=== PATIENT | female | born 1985 | race Two or more races ===

== ENCOUNTER 2020-03-27 14:27 | Emergency (ER) | payer MEDICAID, SELFPAY ==
--- NOTE | 2020-03-27 14:35 | ED.NAVMDI ---
HPI - Nausea/Vomiting/Diarrhea General Chief complaint: Abdominal Pain Stated complaint: NAUSEA AND VOMITING Time Seen by Provider: 03/27/20 14:35 Source: patient and EMS Mode of arrival: EMS Limitations: no limitations History of Present Illness MD elicited complaint: nausea and vomiting Pertinent past history: other (hx of vomiting in the past) Onset (ago): day(s) (last night) Description of vomiting: food contents Associated nausea: Yes Associated abdominal pain: No Location of pain: none Pain consistency: constant Severity: moderate Exacerbating factors: none Relieving factors: none Context: possible food poisoning Associated symptoms: denies other symptoms Related Data Allergies Allergy/AdvReac Type Severity Reaction Status Date / Time Sulfa (Sulfonamide Allergy Unknown SHORTNESS Verified 03/27/20 15:11 Antibiotics) OF BREATH [SULFA (SULFONAMIDE ANTIBIOTICS)] Review of Systems Review of Systems: Constitutional : No Weight loss, No Fever, No Chills ENT/Mouth : No sore throat, No Rhinorrhea Eyes: No Swelling, No Redness Cardiovascular : No Chest Pain, No SOB, NoEdema Respiratory : No Cough, No Sputum, No Wheezing Gastrointestinal : Positive Nausea, Positive Vomiting, no Diarrhea, no abdominal Pain, No Hematochezia, No Melena Genitourinary : No Dysuria, No Urinary Frequency, No Hematuria, No Urgency Musculoskeletal : No joint pain, No Myalgias, No Joint Swelling Skin : No Skin Lesions, No rash Neuro : No Weakness, No Numbness, No Dizziness, No Headache Psych : No Anxiety/Panic, No Depression Heme/Lymph: No Bruising, No Lymphadenopathy Endocrine : No Polyuria, No Polydipsia All other systems reviewed and are negative. Gastrointestinal: Gastrointestinal: Reports nausea PMFSH Past Medical History Attestation statement: The following information was validated with the patient. Medical History (Updated 03/27/20 @ 16:27 by Rula Gasca DO) delivery delivered Hernia Vomiting Social History Social History (Updated 03/27/20 @ 14:41 by Rula Gasca DO) Alcohol intake: current Alcohol intake frequency: holidays/special occasions only Smoking Status: Never smoker Use of substances other than those prescribed or required for medical reasons: No Advance Directives: No Advance Directives Information Provided: No Physical Exam Vital Signs and I&O and Narrative: Vital Signs and I&O: Vital Signs Temp 98.6 F 03/27/20 14:37 Pulse 92 03/27/20 14:37 Resp 16 03/27/20 14:37 BP 136/91 H 03/27/20 14:37 Pulse Ox 99 03/27/20 14:37 Intake & Output 03/26/20 03/27/20 03/27/20 18:59 06:59 18:59 Weight 81.193 kg Body Mass Index 28.0 Appearance: Alert. Oriented X3. No acute distress. Eyes: Pupils equal, round and reactive to light. ENT: Pharynx normal. Neck: Normal inspection. Neck supple. CVS: Normal heart rate and rhythm. Pulses normal. Respiratory: No respiratory distress. Breath sounds normal. Abdomen: Soft and nontender. Skin: Skin warm and dry. Normal skin color. Normal skin turgor. Extremities: No lower extremity edema. No lower extremity edema. Neuro: Oriented X 3. No motor deficit. No sensory deficit. Course Course Course Narrative: signed out to Dr. Perera pending PO challenge and urine MDM - Nausea/Vomiting/Diarrhea MDM Narrative Medical decision making narrative: patient reports c/o n/v 6 times since last night denies concern for , states she took phenergan without relief, still feels nauseated at this time, basic labs, UA, IVF and IV zofran Lab Data Result diagrams: 03/27/20 15:03 03/27/20 15:03 Labs: Lab Results 03/27/20 03/27/20 03/27/20 Range/Units 15:03 15:03 15:03 WBC 5.3 (4.8-10.8) X10*3/uL RBC 3.79 L (4.20-5.50) X10*6/uL Hgb 11.5 L (12.0-16.0) g/dl Hct 36.6 L (37-47) % MCV 96.6 (80-98) fL MCH 30.3 (27.0-33.0) pg MCHC 31.4 (31.0-35.0) g/dl RDW 13.8 (11.0-16.0) % Plt Count 229 (160-400) X10*3/uL MPV 11.4 (9.4-12.3) fL Immature Gran % (Auto) 0.2 (0.0-0.4) % Neut % (Auto) 69.2 (45-73) % Lymph % (Auto) 22.2 (20-40) % [place] % (Auto) 7.0 (2-11) % Eos % (Auto) 0.8 (0-4) % Baso % (Auto) 0.6 (0-2) % Neut # (Auto) 3.7 (2.0-8.3) X10*3/uL Lymph # (Auto) 1.2 (1.2-4.9) X10*3/uL [place] # (Auto) 0.4 (0.1-1.2) X10*3/uL Eos # (Auto) 0.0 (0.0-0.4) X10*3/uL Baso # (Auto) 0.0 (0.0-0.2) X10*3/uL Abs Immat Gran (auto) 0.01 (0.00-0.03) X10*3/uL Absolute Nucleated RBC 0.000 (0.0-0.012) X10*3/uL Nucleated RBC % (auto) 0.0 (0.0-0.2) /100WBC Hold Blue Top SEE NOTE Sodium 141 (135-145) mmol/L Potassium 4.4 (3.3-5.1) mmol/l Chloride 105 (96-108) mmol/L Carbon Dioxide 27 (22-29) mmol/L Anion Gap 13 (12-20) BUN 12 (9-16) mg/dL Creatinine 0.63 (0.5-1.4) mg/dL Estim Creat Clear Calc 136.6 Estimated GFR > 60 Random Glucose 102 (60-115) mg/dL Calcium 8.5 (8.4-10.2) mg/dL Magnesium 2.1 (1.6-2.6) mg/dL Total Bilirubin 0.6 (0.0-1.0) mg/dL Direct Bilirubin 0.3 (0.0-0.5) mg/dL AST 18 (5-31) U/L ALT 15 (0-31) U/L Alkaline Phosphatase 59 (39-117) U/L Total Protein 7.2 (6.5-8.0) g/dL Albumin 4.0 (3.5-5.0) g/dL Lipase 23 (8-78) U/L Discharge Plan Discharge Clinical Impression: Vomiting Qualifiers: Vomiting type: unspecified Vomiting Intractability: unspecified Nausea presence: with nausea Qualified Code(s): R11.2 - Nausea with vomiting, unspecified
[2020-03-27 14:37] VITALS: BP 136/91; PULSE 92; RESP 16; TEMP 37; O2SAT 99; BMI 28.0
[2020-03-27 15:08] LABS: MANUAL DIFF FLAG NO
[2020-03-27 15:09] LABS: Basophils Percent Auto 0.6 % (0-2); Eosinophils Percent Auto 0.8 % (0-4); Hematocrit 36.6 % (37-47); Hemoglobin 11.5 g/dl (12.0-16.0); Imm Gran Abs Auto 0.01 X10*3/uL (0.00-0.03); Imm Gran Pct Auto 0.2 % (0.0-0.4); Lymphocytes Absolute Auto 1.2 X10*3/uL (1.2-4.9); Lymphocytes Percent Auto 22.2 % (20-40); Mean Corpuscular HGB Conc 31.4 g/dl (31.0-35.0); Mean Corpuscular Hemoglobin 30.3 pg (27.0-33.0); Mean Corpuscular Volume 96.6 fL (80-98); Mean Platelet Volume 11.4 fL (9.4-12.3); Monocytes Absolute Auto 0.4 X10*3/uL (0.1-1.2); Neutrophils Absolute Auto 3.7 X10*3/uL (2.0-8.3); Neutrophils Percent Auto 69.2 % (45-73); Platelet Count 229 X10*3/uL (160-400); Red Blood Count 3.79 X10*6/uL (4.20-5.50); Red Cell Distribution Width 13.8 % (11.0-16.0); White Blood Count 5.3 X10*3/uL (4.8-10.8)
[2020-03-27] MEDS: 0.9 % Sodium Chloride 1,000 ML 999 ML IVCONT (15:12)
[2020-03-27] MEDS: ondansetron HCL 4 MG/2 ML VIAL IVPUSH (15:21)
[2020-03-27 15:44] LABS: Alanine Aminotransferase 15 U/L (0-31); Alkaline Phosphatase 59 U/L (39-117); Anion Gap 13 (12-20); Aspartate Amino Transferase 18 U/L (5-31); Bilirubin Direct 0.3 mg/dL (0.0-0.5); Bilirubin Total 0.6 mg/dL (0.0-1.0); Blood Urea Nitrogen 12 mg/dL (9-16); Calcium 8.5 mg/dL (8.4-10.2); Carbon Dioxide 27 mmol/L (22-29); Chloride 105 mmol/L (96-108); Creatinine Clr Calc Pharmacy 136.6; Estimated Glomerular Filt Rate > 60; Glucose Random 102 mg/dL (60-115); Lipase 23 U/L (8-78); Magnesium 2.1 mg/dL (1.6-2.6); Potassium 4.4 mmol/l (3.3-5.1); Sodium 141 mmol/L (135-145); Total Protein 7.2 g/dL (6.5-8.0)
[2020-03-27 17:07] LABS: Glucose Urine UA NEG (NEG); Leukocyte Esterase Urine NEG (NEG); Nitrite Urine NEG (NEG); PH 7.5 (5.0-8.0); Specific Gravity - Urine 1.015 (1.005-1.025); Urine Blood NEG (NEG); Urine Ketones NEG (NEG); Urine Protein NEG (NEG-TRACE)
[2020-03-27 17:24] LABS: Appearance Urine CLEAR; Color Urine YELLOW
[2020-03-27 17:26] LABS: UPreg QC Valid YES; Urine Pregnancy NEGATIVE (NEGATIVE)
[2020-03-27 17:51] LABS: Bacteria Urine TRACE /LPF; Mucus Urine 1+ /LPF; RBC Urine 0-2 /HPF (0); Squamous Epithelial Cell Urine TRACE /LPF; WBC Urine 0-2 /HPF (0-4)
[2020-03-27 18:01] VITALS: BP 148/75; PULSE 78; RESP 15; O2SAT 98
== END 2020-03-27 19:04 | disposition home or self-care (01) ==
PROVIDERS: Emergency Medicine; Emergency Provider Emergency Medicine; PCP Pediatrics
DX: R11.2 Nausea with vomiting, unspecified (principal)
CPT/HCPCS: 36415; 80048; 80076; 81001; 81003; 81025; 83690; 83735; 85025; 96361; 96374; 99284; J2405

== ENCOUNTER 2020-05-21 11:27 | Outpatient (REF) | payer MEDICAID, SELFPAY | END 2020-05-21 11:28 | disposition home or self-care (01) | LOC: HO.LAB 11:27 | PROVIDERS: Visit Provider Internal Medicine | DX: Z20.828 Contact with and (suspected) exposure to other viral communicable diseases (principal) | CPT/HCPCS: U0003 ==

== ENCOUNTER 2020-07-09 13:55 | Outpatient (REF) | payer MEDICAID, SELFPAY | END 2020-07-09 13:56 | disposition home or self-care (01) | LOC: HO.LAB 13:55 | PROVIDERS: Visit Provider Internal Medicine | DX: Z20.822 Contact with and (suspected) exposure to COVID-19 (principal) | CPT/HCPCS: 36415; C9803; U0003 ==

== ENCOUNTER 2020-07-19 12:50 | Outpatient (REF) | payer MEDICAID, SELFPAY ==
--- NOTE | 2020-07-19 | US_ITS ---
EXAMINATION: US ULTRASOUND BREAST, RIGHT US ULTRASOUND BREAST, LEFT CLINICAL INFORMATION: 34-year-old leaving tomorrow to have bilateral implants, procedure to be performed in [place], [place]. No symptoms. No known immediate family history of breast cancer. COMPARISON: Bilateral diagnostic digital breast tomosynthesis and diagnostic left breast ultrasound 08/27/2017. TECHNIQUE: Ultrasound is performed using grayscale imaging and color Doppler. Imaging is performed to include the four quadrants and retroareolar region. Both breasts are imaged. FINDINGS: Right breast: There is no suspicious finding by ultrasound. There is no cystic or solid mass or focal architectural abnormality. Left breast: There is no suspicious finding by ultrasound. There is no cystic or solid mass or focal architectural abnormality. Results are discussed with patient at time of appointment. Benefits of screening mammography prior to breast surgery discussed. Patient declined mammography at this appointment. US/US breast LT complete IMPRESSION: Normal study. ASSESSMENT: BI-RADS 1: Negative RECOMMENDATION: Patient should be managed based on the clinical impression. Bilateral screening mammography suggested prior to surgery. Otherwise, by age 40, or earlier as clinical risk factors warrant.
--- NOTE | 2020-07-19 | US_ITS ---
EXAMINATION: US ULTRASOUND BREAST, RIGHT US ULTRASOUND BREAST, LEFT CLINICAL INFORMATION: 34-year-old leaving tomorrow to have bilateral implants, procedure to be performed in [place], [place]. No symptoms. No known immediate family history of breast cancer. COMPARISON: Bilateral diagnostic digital breast tomosynthesis and diagnostic left breast ultrasound 08/27/2017. TECHNIQUE: Ultrasound is performed using grayscale imaging and color Doppler. Imaging is performed to include the four quadrants and retroareolar region. Both breasts are imaged. FINDINGS: Right breast: There is no suspicious finding by ultrasound. There is no cystic or solid mass or focal architectural abnormality. Left breast: There is no suspicious finding by ultrasound. There is no cystic or solid mass or focal architectural abnormality. Results are discussed with patient at time of appointment. Benefits of screening mammography prior to breast surgery discussed. Patient declined mammography at this appointment. US/US breast RT complete IMPRESSION: Normal study. ASSESSMENT: BI-RADS 1: Negative RECOMMENDATION: Patient should be managed based on the clinical impression. Bilateral screening mammography suggested prior to surgery. Otherwise, by age 40, or earlier as clinical risk factors warrant.
== END 2020-07-19 12:51 | disposition home or self-care (01) ==
LOC: HO.MAMMO 12:50
PROVIDERS: PCP Internal Medicine; Visit Provider Internal Medicine
DX: Z01.818 Encounter for other preprocedural examination (principal)
CPT/HCPCS: 76641

== ENCOUNTER 2020-08-05 11:44 | Outpatient (REF) | payer MEDICAID, SELFPAY | END 2020-08-05 11:45 | disposition home or self-care (01) | LOC: HO.LAB 11:44 | PROVIDERS: PCP Pediatrics; Visit Provider Internal Medicine | DX: Z20.822 Contact with and (suspected) exposure to COVID-19 (principal) | CPT/HCPCS: 36415; C9803; U0003; U0005 ==

== ENCOUNTER 2020-09-06 10:12 | Outpatient (REF) | payer MEDICAID, SELFPAY | END 2020-09-06 10:13 | disposition home or self-care (01) | LOC: HO.LAB 10:12 | PROVIDERS: Visit Provider Internal Medicine | DX: Z20.822 Contact with and (suspected) exposure to COVID-19 (principal) | CPT/HCPCS: 36415; C9803; U0003; U0005 ==

== ENCOUNTER 2020-09-30 11:41 | Outpatient (REF) | payer MEDICAID, SELFPAY ==
[2020-09-30 13:17] LABS: COVID-19 Test Negative (Negative)
== END 2020-09-30 11:42 | disposition home or self-care (01) ==
LOC: HO.LAB 11:41
PROVIDERS: Visit Provider Internal Medicine
DX: Z20.822 Contact with and (suspected) exposure to COVID-19 (principal)
CPT/HCPCS: 36415; 87635; C9803

== ENCOUNTER 2020-10-11 11:04 | Outpatient (REF) | payer MEDICAID, SELFPAY ==
[2020-10-11 11:33] LABS: COVID-19 Test Negative (Negative)
== END 2020-10-11 11:05 | disposition home or self-care (01) ==
LOC: HO.LAB 11:04
PROVIDERS: Visit Provider Internal Medicine
DX: Z20.822 Contact with and (suspected) exposure to COVID-19 (principal)
CPT/HCPCS: 36415; 87635; C9803

== ENCOUNTER 2020-10-13 13:55 | Emergency (ER) | payer MEDICAID, SELFPAY ==
[2020-10-13 14:04] VITALS: BP 141/96; BP 146/94; PULSE 68; PULSE 96; RESP 18; TEMP 37.1; O2SAT 94; O2SAT 96; BMI 27.3
--- NOTE | 2020-10-13 14:07 | ED_ITS ---
HPI - Nausea/Vomiting/Diarrhea General Chief complaint: Abdominal Pain Stated complaint: N/V Time Seen by Provider: 10/13/20 14:02 Source: patient Mode of arrival: ambulatory Limitations: no limitations History of Present Illness HPI Narrative: 34yo female here with upper abdominal discomfort, nausea/vomiting since last evening after eating [place] food. Patient tells me she is vomiting food content and clear. Non bilious and nonbloody. No diarrhea, urinary symptoms, fevers, chills. Last menstrual cycle October 08. Took Phenergan last night with continued symptoms Associated nausea: Yes Related Data Previous Rx's Medication Instructions Recorded ondansetron HCl [Zofran] 4 mg PO Q8H PRN #10 tab 03/27/20 ondansetron 4 mg PO Q6H PRN #10 tab 10/13/20 Allergies Allergy/AdvReac Type Severity Reaction Status Date / Time Sulfa (Sulfonamide Allergy Unknown SHORTNESS Verified 03/27/20 15:11 Antibiotics) OF BREATH [SULFA (SULFONAMIDE ANTIBIOTICS)] Review of Systems Review of Systems: Yes all other systems are reviewed and are negative Constitutional: Constitutional: Reports no additional constitutional complaints, Denies body ache(s), Denies chills, Denies fever(s), Denies headache(s) and Denies weakness Eyes: Eyes: Reports no additional eye complaints and Denies change in vision ENT: Reports system reviewed and no additional complaints, except as documented, Denies dizziness, Denies headache(s), Denies nasal congestion, Denies nasal discharge and Denies neck pain Cardiovascular: Cardiovascular: Reports no additional cardiovascular complaints, Denies chest pain, Denies leg edema and Denies dyspnea Respiratory: Respiratory: Reports no additional respiratory complaints, Denies cough and Denies dyspnea Gastrointestinal: Gastrointestinal: Reports no additional gastrointestinal complaints, Reports abdominal pain, Denies diarrhea, Reports nausea and Reports vomiting Genitourinary: Genitourinary: Reports no additional female genitourinary complaints and Denies urinary incontinence Musculoskeletal: Musculoskeletal: Reports no additional musculoskeletal complaints, Denies back pain, Denies arthralgias, Denies joint swelling, Denies neck pain, Denies numbness and Denies tingling Integumentary/Breasts: Skin/Breast: Reports system reviewed and no additional complaints, except as docu and Denies rash Neurologic: Reports system reviewed and no additional complaints, except as documented, Denies Abnormal speech present, Denies dizziness, Denies headache(s), Denies numbness, Denies tingling and Denies weakness PMFSH Past Medical History Attestation statement: The following information was validated with the patient. Source: old records reviewed and nursing notes reviewed Medical History (Updated 10/13/20 @ 16:05 by Selena Lawrence NP) delivery delivered Hernia Vomiting Surgical History H/O abdominoplasty Social History Social History Alcohol intake: current Alcohol intake frequency: holidays/special occasions only Smoking Status: Light tobacco smoker Use of substances other than those prescribed or required for medical reasons: No Advance Directives: No Advance Directives Information Provided: Yes Physical Exam Vital Signs: Vital Signs: Last Vital Signs Temp 98.7 F 10/13/20 15:46 Pulse 66 10/13/20 15:46 Resp 18 10/13/20 15:46 BP 141/86 H 10/13/20 15:46 Pulse Ox 96 10/13/20 15:46 Body Mass Index 27.3 Const: General: cooperative, healthy appearing, comfortable and no acute distress Orientation/consciousness: patient oriented x3 Limitations: no limitations HENMT: Head: Yes normal to inspection Ears: hearing grossly normal bilaterally General nose exam: Normal external nose present Face and sinus: Yes normal facial exam Mouth: Normal oral and palatal mucosa present Throat: Yes posterior oropharynx normal Eyes: General: appearance normal, both eyes and all related structures Pupils: Equal, round and reactive pupils present Neck: Neck: Yes normal visual inspection Chest: Chest palpation & inspection: normal inspection of the chest Resp: Effort & Inspection: normal respiratory effort Auscultation: clear to auscultation bilaterally Cardio: Rate: regular rate Rhythm: regular rhythm Peripheral pulses: Peripheral pulses 2+ throughout GI: Inspection: Yes normal to inspection Palpation (GI): Soft to palpation and Tenderness to palpation present (GI) (Mild epigastric tenderness. No rebound or guarding) Auscultation: normal bowel sounds Back/Spine/Pelvis: Thoracic/Lumbar Spine: thoracic and lumbar spine normal to inspection Skin: General skin exam: no rashes or lesions noted Neuro: General: patient oriented x3, no focal motor deficits and normal sensation to monofilament Cranial nerves: Yes Equal, round and reactive pupils present Cognition (Neuro): normal cognition Speech: No Abnormal speech present Gait exam (Neuro): Normal gait present Motor exam (neuro): 5/5 motor strength present throughout Extrem: General: Yes normal to inspection, Yes no pedal edema and Yes no calf tenderness Course Course Course Narrative: 34-year-old female here with epigastric discomfort with associated vomiting since last evening. On exam is mild tenderness with no rebound or guarding. Will need labs, UA, IV with normal saline bolus and IV Zofran. 1615-labs unremarkable. UA negative. COVID screen negative. Patient is feeling improved with the exception of a mild headache. She is tolerating p.o. likely viral. Reviewed worrisome signs and symptoms with the patient and when to return to the emergency department. Comfortable discharge home. MDM - Nausea/Vomiting/Diarrhea Medical Records Attestation: I reviewed the patient's medical records. Lab Data Attestation: I reviewed the patient's lab results. Result diagrams: 10/13/20 14:18 10/13/20 14:18 Labs: Lab Results 10/13/20 10/13/20 10/13/20 Range/Units 14:18 14:18 14:18 WBC 4.4 L (4.8-10.8) X10*3/uL RBC 4.03 L (4.20-5.50) X10*6/uL Hgb 12.0 (12.0-16.0) g/dl Hct 37.9 (37-47) % MCV 94.0 (80-98) fL MCH 29.8 (27.0-33.0) pg MCHC 31.7 (31.0-35.0) g/dl RDW 12.9 (11.0-16.0) % Plt Count 219 (160-400) X10*3/uL MPV 11.9 (9.4-12.3) fL Immature Gran % (Auto) 0.2 (0.0-0.4) % Neut % (Auto) 62.6 (45-73) % Lymph % (Auto) 26.8 (20-40) % [place] % (Auto) 7.7 (2-11) % Eos % (Auto) 1.8 (0-4) % Baso % (Auto) 0.9 (0-2) % Lymph # (Auto) 1.2 (1.2-4.9) X10*3/uL [place] # (Auto) 0.3 (0.1-1.2) X10*3/uL Eos # (Auto) 0.1 (0.0-0.4) X10*3/uL Baso # (Auto) 0.0 (0.0-0.2) X10*3/uL Abs Immat Gran (auto) 0.01 (0.00-0.03) X10*3/uL Absolute Neuts (auto) 2.8 (2.0-8.3) X10*3/uL Absolute Nucleated RBC 0.000 (0.0-0.012) X10*3/uL Nucleated RBC % (auto) 0.0 (0.0-0.2) /100WBC Hold Blue Top SEE NOTE Sodium 144 (135-145) mmol/L Potassium 4.0 (3.3-5.1) mmol/L Chloride 107 (96-108) mmol/L Carbon Dioxide 26 (22-29) mmol/L Anion Gap 15 (12-20) BUN 10 (9-16) mg/dL Creatinine 0.64 (0.5-1.4) mg/dL Estim Creat Clear Calc 133.0 Estimated GFR > 60 Random Glucose 103 (60-115) mg/dL Calcium 8.6 (8.4-10.2) mg/dL Magnesium 2.0 (1.6-2.6) mg/dL Total Bilirubin 0.5 (0.0-1.0) mg/dL Direct Bilirubin 0.3 (0.0-0.5) mg/dL AST 17 (5-31) U/L ALT 10 (0-31) U/L Alkaline Phosphatase 59 (39-117) U/L Total Protein 7.4 (6.5-8.0) g/dL Albumin 4.1 (3.5-5.0) g/dL Urine Color Urine Appearance Urine pH (5.0-8.0) Ur Specific [place] (1.005-1.025) Urine Protein (NEG-TRACE) MG/DL Urine Glucose (UA) (NEG) MG/DL Urine Ketones (NEG) MG/DL Urine Blood (NEG) Urine Nitrite (NEG) Ur Leukocyte Esterase (NEG) Urine Test (NEGATIVE) COVID-19 (CALLIE) (Negative) COVID-19 Clin Com 10/13/20 10/13/20 10/13/20 Range/Units 14:18 14:25 14:25 WBC (4.8-10.8) X10*3/uL RBC (4.20-5.50) X10*6/uL Hgb (12.0-16.0) g/dl Hct (37-47) % MCV (80-98) fL MCH (27.0-33.0) pg MCHC (31.0-35.0) g/dl RDW (11.0-16.0) % Plt Count (160-400) X10*3/uL MPV (9.4-12.3) fL Immature Gran % (Auto) (0.0-0.4) % Neut % (Auto) (45-73) % Lymph % (Auto) (20-40) % [place] % (Auto) (2-11) % Eos % (Auto) (0-4) % Baso % (Auto) (0-2) % Lymph # (Auto) (1.2-4.9) X10*3/uL [place] # (Auto) (0.1-1.2) X10*3/uL Eos # (Auto) (0.0-0.4) X10*3/uL Baso # (Auto) (0.0-0.2) X10*3/uL Abs Immat Gran (auto) (0.00-0.03) X10*3/uL Absolute Neuts (auto) (2.0-8.3) X10*3/uL Absolute Nucleated RBC (0.0-0.012) X10*3/uL Nucleated RBC % (auto) (0.0-0.2) /100WBC Hold Blue Top Sodium (135-145) mmol/L Potassium (3.3-5.1) mmol/L Chloride (96-108) mmol/L Carbon Dioxide (22-29) mmol/L Anion Gap (12-20) BUN (9-16) mg/dL Creatinine (0.5-1.4) mg/dL Estim Creat Clear Calc Estimated GFR Random Glucose (60-115) mg/dL Calcium (8.4-10.2) mg/dL Magnesium (1.6-2.6) mg/dL Total Bilirubin (0.0-1.0) mg/dL Direct Bilirubin (0.0-0.5) mg/dL AST (5-31) U/L ALT (0-31) U/L Alkaline Phosphatase (39-117) U/L Total Protein (6.5-8.0) g/dL Albumin (3.5-5.0) g/dL Urine Color YELLOW Urine Appearance HAZY Urine pH 7.0 (5.0-8.0) Ur Specific [place] 1.010 (1.005-1.025) Urine Protein TRACE (NEG-TRACE) MG/DL Urine Glucose (UA) NEG (NEG) MG/DL Urine Ketones NEG (NEG) MG/DL Urine Blood NEG (NEG) Urine Nitrite NEG (NEG) Ur Leukocyte Esterase NEG (NEG) Urine Test NEGATIVE (NEGATIVE) COVID-19 (CALLIE) Negative (Negative) COVID-19 Clin Com See Note Discharge Plan Discharge Clinical Impression: Gastroenteritis Patient Disposition: Home, Self-Care Instructions: Gastroenteritis (ED) Additional Instructions: Increase diet as tolerated Increase fluids, rest Prescriptions: New ondansetron 4 mg tablet,disintegrating 4 mg PO Q6H PRN (Reason: nausea and vomiting) Qty: 10 RF: 0 No Action ondansetron HCl [Zofran] 4 mg tablet 4 mg PO Q8H PRN (Reason: nausea and vomiting) Qty: 10 RF: 0 Referrals: Physician,Unknown [Primary Care Provider] - 2 days Interventions: ED Discharge Assessment Last Done: 10/13/20 16:15 Discharge Date/Time: 10/13/20 16:29
[2020-10-13 14:23] LABS: MANUAL DIFF FLAG NO
[2020-10-13] MEDS: ondansetron HCL 4 MG/2 ML VIAL IVPUSH (14:25)
[2020-10-13] MEDS: 0.9 % Sodium Chloride 1,000 ML 999 ML IV (14:25)
[2020-10-13 14:27] LABS: Basophils Percent Auto 0.9 % (0-2); Eosinophils Absolute Auto 0.1 X10*3/uL (0.0-0.4); Eosinophils Percent Auto 1.8 % (0-4); Hematocrit 37.9 % (37-47); Imm Gran Abs Auto 0.01 X10*3/uL (0.00-0.03); Imm Gran Pct Auto 0.2 % (0.0-0.4); Lymphocytes Absolute Auto 1.2 X10*3/uL (1.2-4.9); Lymphocytes Percent Auto 26.8 % (20-40); Mean Corpuscular HGB Conc 31.7 g/dl (31.0-35.0); Mean Corpuscular Hemoglobin 29.8 pg (27.0-33.0); Mean Platelet Volume 11.9 fL (9.4-12.3); Monocytes Absolute Auto 0.3 X10*3/uL (0.1-1.2); Monocytes Percent Auto 7.7 % (2-11); Neutrophils Absolute Auto 2.8 X10*3/uL (2.0-8.3); Neutrophils Percent Auto 62.6 % (45-73); Platelet Count 219 X10*3/uL (160-400); Red Blood Count 4.03 X10*6/uL (4.20-5.50); Red Cell Distribution Width 12.9 % (11.0-16.0); White Blood Count 4.4 X10*3/uL (4.8-10.8)
[2020-10-13 14:34] LABS: Appearance Urine HAZY; Color Urine YELLOW; Glucose Urine UA NEG (NEG); Leukocyte Esterase Urine NEG (NEG); Nitrite Urine NEG (NEG); UPreg QC Valid YES; Urine Blood NEG (NEG); Urine Ketones NEG (NEG); Urine Protein TRACE MG/DL (NEG-TRACE)
[2020-10-13 14:35] LABS: Urine Pregnancy NEGATIVE (NEGATIVE)
--- NOTE | 2020-10-13 14:36 | PC.NURSE ---
iv inserted, labs drawn, urine obtained, pt medicated per order, vss, will continue to monitor.
[2020-10-13 14:46] LABS: Alanine Aminotransferase 10 U/L (0-31); Albumin Level 4.1 g/dL (3.5-5.0); Alkaline Phosphatase 59 U/L (39-117); Anion Gap 15 (12-20); Aspartate Amino Transferase 17 U/L (5-31); Bilirubin Direct 0.3 mg/dL (0.0-0.5); Bilirubin Total 0.5 mg/dL (0.0-1.0); Blood Urea Nitrogen 10 mg/dL (9-16); Calcium 8.6 mg/dL (8.4-10.2); Carbon Dioxide 26 mmol/L (22-29); Chloride 107 mmol/L (96-108); Estimated Glomerular Filt Rate > 60; Glucose Random 103 mg/dL (60-115); Sodium 144 mmol/L (135-145); Total Protein 7.4 g/dL (6.5-8.0)
[2020-10-13 15:46] VITALS: BP 141/86; PULSE 66; RESP 18; TEMP 37.1; O2SAT 96
--- NOTE | 2020-10-13 15:47 | PC.NURSE ---
patient a&ox3, vss, pt states she is feeling better that her abd pain has lessoned to 3/10 and her nausea has been relieved, will continue to monitor.
[2020-10-13 16:04] LABS: COVID-19 Test Negative (Negative)
[2020-10-13] MEDS: Acetaminophen 325 MG TABLET 650 MG PO (16:24)
--- NOTE | 2020-10-13 16:26 | PC.NURSE ---
pt medicated per order and will discharge shortly
== END 2020-10-13 16:29 | disposition home or self-care (01) ==
PROVIDERS: Nurse Practitioner Family; Emergency Provider Emergency Medicine
DX: K52.9 Noninfective gastroenteritis and colitis, unspecified (principal); R10.9 Unspecified abdominal pain; Z20.822 Contact with and (suspected) exposure to COVID-19
CPT/HCPCS: 36415; 80048; 80076; 81003; 81025; 83735; 85025; 87635; 96365; 96375; 99285; J2405

== ENCOUNTER 2020-12-04 11:50 | Emergency (ER) | payer MEDICAID, SELFPAY ==
--- NOTE | ~2020-12-04 | XR_ITS ---
EXAMINATION: XR CHEST CLINICAL INFORMATION: Elevated white count. COMPARISON: None TECHNIQUE: Frontal view of the chest was obtained. FINDINGS: No significant abnormality is noted involving the heart, lungs, mediastinum, bony thorax or soft tissues. XR/XR chest 1V IMPRESSION: Unremarkable chest exam.
--- NOTE | 2020-12-04 12:28 | ED.NAVMDI ---
HPI - Nausea/Vomiting/Diarrhea General Chief complaint: Nausea/Vomiting/Diarrhea Stated complaint: NAUSEA Time Seen by Provider: 12/04/20 12:09 Source: patient Mode of arrival: ambulatory History of Present Illness HPI Narrative: 35-year-old female with no significant past medical history presenting to the ED complaining of nausea since yesterday with 1 episode of emesis. Reports decreased p.o. intake, and fever T-max 103? yesterday, 100 today. Took Tylenol 3 hours [employer]. Admits was seen and treated at Urgent care yesterday, tested for COVID-19 which was negative, diagnosed with strep pharyngitis, started on Amoxicillin, has taken 3 doses. Denies difficulty/inability to swallow, abdominal pain, diarrhea, constipation, cough, LE edema MD elicited complaint: nausea and vomiting Related Data Previous Rx's Medication Instructions Recorded ondansetron HCl [Zofran] 4 mg PO Q8H PRN #10 tab 03/27/20 ondansetron 4 mg PO Q6H PRN #10 tab 10/13/20 ondansetron HCl [Zofran] 4 mg PO Q8H PRN #10 tab 12/04/20 Allergies Allergy/AdvReac Type Severity Reaction Status Date / Time Sulfa (Sulfonamide Allergy Unknown SHORTNESS Verified 03/27/20 15:11 Antibiotics) OF BREATH [SULFA (SULFONAMIDE ANTIBIOTICS)] Review of Systems Review of Systems: Constitutional: No Weight loss, + Fever, + Chills (resolved) ENT/Mouth: No Nasal Congestion, No Hoarseness, + sore throat, No Swallowing Difficulty Cardiovascular: No Chest Pain, No SOB, No Edema Respiratory: No Cough, No Dyspnea Gastrointestinal: + Nausea, + Vomiting, No Diarrhea, No Abdominal pain Musculoskeletal: No joint pain, No Myalgias, No Joint Swelling Skin: No Skin Lesions, No rash Neuro: No Weakness, No Headache Yes all other systems are reviewed and are negative PMFSH Past Medical History Attestation statement: The following information was validated with the patient. Medical History (Updated 12/04/20 @ 15:29 by KARMA Cruz) delivery delivered Hernia Vomiting Surgical History H/O abdominoplasty Social History Social History Alcohol intake: current Alcohol intake frequency: holidays/special occasions only Patient Tobacco Use Status: Current someday Tobacco user Use of substances other than those prescribed or required for medical reasons: No Advance Directives: No Advance Directives Information Provided: No Physical Exam Vital Signs: Vital Signs: Last Vital Signs Temp 98.9 F 12/04/20 12:55 Pulse 90 12/04/20 12:55 Resp 17 12/04/20 12:55 BP 126/83 12/04/20 12:55 Pulse Ox 98 12/04/20 12:55 Body Mass Index 27.3 Const: General: cooperative, healthy appearing and no acute distress Orientation/consciousness: patient oriented x3 Limitations: no limitations HENMT: Head: Yes normal to inspection Ears: hearing grossly normal bilaterally General nose exam: Normal external nose present Face and sinus: Yes normal facial exam Throat: Yes uvula midline, Yes abnormal tonsil (Bilateral tonsillar erythema and swelling with residual exudates) and No peritonsillar mass Eyes: General: appearance normal, both eyes and all related structures EOM: EOMs intact bilaterally Neck: Neck: Yes normal visual inspection and Yes no meningeal signs Resp: Effort & Inspection: normal respiratory effort Auscultation: no crackles, no rhonchi and no wheezes Cardio: Rate: regular rate Heart sounds: S1 normal heart sound present and S2 normal heart sound present GI: Inspection: Yes normal to inspection Palpation (GI): Soft to palpation, nontender, no guarding and not rigid Skin: Rashes: no rashes Wounds: no wounds Neuro: General: patient oriented x3 and no meningeal signs Gait exam (Neuro): Normal gait present Extrem: General: Yes normal to inspection Course Course Course Narrative: -1414--noted leukocytosis of 16.1 > likely from strep pharyngitis/emesis >> low concern for severe sepsis. Patient is nontoxic appearing. Will give 1 dose of IM penicillin G, p.o. potassium repletion an additional L IVF - H&H stable, potassium low at 3.1, AST/ALT mildly elevated, labs otherwise unremarkable. -1526--UA not infected, 5 ketones. COVID-19/influenza/RSV negative. CXR unremarkable. >>Results discussed with patient including worrisome signs and symptoms and strict return precautions. She verbalized understanding and feel safe for discharge home to follow-up with PCP MDM - Nausea/Vomiting/Diarrhea MDM Narrative Medical decision making narrative: 35-year-old female with no significant past medical history presenting to the ED complaining of nausea since yesterday with 1 episode of emesis. Reports decreased p.o. intake, and fever T-max 103? yesterday, 100 today. On exam VSS, NAD, well appearing, bilateral tonsillar swelling/erythema with residual exduates, nontoxic appearing, abdomen soft and nontender. Concern for persistent strep pharyngitis vs ?side effect from amoxicillin vs dehydration. Low concern for intra-abdominal pathology Plan: Labs, IVF, Zofran, p.o. challenge, reassess Medical Records Attestation: I reviewed the patient's medical records. Lab Data Attestation: I reviewed the patient's lab results. Result diagrams: 12/04/20 13:09 12/04/20 13:09 Labs: Lab Results 12/04/20 12/04/20 12/04/20 Range/Units 13:09 13:09 13:09 WBC 16.1 H (4.8-10.8) X10*3/uL RBC 3.91 L (4.20-5.50) X10*6/uL Hgb 11.5 L (12.0-16.0) g/dl Hct 35.6 L (37-47) % MCV 91.0 (80-98) fL MCH 29.4 (27.0-33.0) pg MCHC 32.3 (31.0-35.0) g/dl RDW 14.5 (11.0-16.0) % Plt Count 193 (160-400) X10*3/uL MPV 11.8 (9.4-12.3) fL Immature Gran % (Auto) 0.6 H (0.0-0.4) % Neut % (Auto) 86.1 H (45-73) % Lymph % (Auto) 6.1 L (20-40) % [place] % (Auto) 7.0 (2-11) % Eos % (Auto) 0.0 (0-4) % Baso % (Auto) 0.2 (0-2) % Lymph # (Auto) 1.0 L (1.2-4.9) X10*3/uL [place] # (Auto) 1.1 (0.1-1.2) X10*3/uL Eos # (Auto) 0.0 (0.0-0.4) X10*3/uL Baso # (Auto) 0.0 (0.0-0.2) X10*3/uL Abs Immat Gran (auto) 0.10 H (0.00-0.03) X10*3/uL Absolute Neuts (auto) 13.9 H (2.0-8.3) X10*3/uL Absolute Nucleated RBC 0.000 (0.0-0.012) X10*3/uL Nucleated RBC % (auto) 0.0 (0.0-0.2) /100WBC Sodium 138 (135-145) mmol/L Potassium 3.1 L D (3.3-5.1) mmol/L Chloride 104 (96-108) mmol/L Carbon Dioxide 25 (22-29) mmol/L Anion Gap 12 (12-20) BUN 6 L (9-16) mg/dL Creatinine 0.59 (0.5-1.4) mg/dL Estim Creat Clear Calc 143.0 Estimated GFR > 60 Random Glucose 107 (60-115) mg/dL Calcium 8.9 (8.4-10.2) mg/dL Magnesium (1.6-2.6) mg/dL Total Bilirubin (0.0-1.0) mg/dL Direct Bilirubin (0.0-0.5) mg/dL AST (5-31) U/L ALT (0-31) U/L Alkaline Phosphatase (39-117) U/L Total Protein (6.5-8.0) g/dL Albumin (3.5-5.0) g/dL Urine Color Urine Appearance Urine pH (5.0-8.0) Ur Specific [place] (1.005-1.025) Urine Protein (NEG-TRACE) MG/DL Urine Glucose (UA) (NEG) MG/DL Urine Ketones (NEG) MG/DL Urine Blood (NEG) Urine Nitrite (NEG) Ur Leukocyte Esterase (NEG) Urine RBC (0) /HPF Urine WBC (0-4) /HPF Ur Squamous Epith Cells /LPF Urine Bacteria /LPF Urine Mucus /LPF Coronavirus (PCR) NEGATIVE (Negative) Influenza Type A (PCR) NEGATIVE (Negative) Influenza Type B (PCR) NEGATIVE (Negative) RSV RNA Qual (PCR) NEGATIVE (Negative) 12/04/20 12/04/20 Range/Units 13:09 14:55 WBC (4.8-10.8) X10*3/uL RBC (4.20-5.50) X10*6/uL Hgb (12.0-16.0) g/dl Hct (37-47) % MCV (80-98) fL MCH (27.0-33.0) pg MCHC (31.0-35.0) g/dl RDW (11.0-16.0) % Plt Count (160-400) X10*3/uL MPV (9.4-12.3) fL Immature Gran % (Auto) (0.0-0.4) % Neut % (Auto) (45-73) % Lymph % (Auto) (20-40) % [place] % (Auto) (2-11) % Eos % (Auto) (0-4) % Baso % (Auto) (0-2) % Lymph # (Auto) (1.2-4.9) X10*3/uL [place] # (Auto) (0.1-1.2) X10*3/uL Eos # (Auto) (0.0-0.4) X10*3/uL Baso # (Auto) (0.0-0.2) X10*3/uL Abs Immat Gran (auto) (0.00-0.03) X10*3/uL Absolute Neuts (auto) (2.0-8.3) X10*3/uL Absolute Nucleated RBC (0.0-0.012) X10*3/uL Nucleated RBC % (auto) (0.0-0.2) /100WBC Sodium (135-145) mmol/L Potassium (3.3-5.1) mmol/L Chloride (96-108) mmol/L Carbon Dioxide (22-29) mmol/L Anion Gap (12-20) BUN (9-16) mg/dL Creatinine (0.5-1.4) mg/dL Estim Creat Clear Calc Estimated GFR Random Glucose (60-115) mg/dL Calcium (8.4-10.2) mg/dL Magnesium 2.2 (1.6-2.6) mg/dL Total Bilirubin 0.4 (0.0-1.0) mg/dL Direct Bilirubin 0.2 (0.0-0.5) mg/dL AST 42 H D (5-31) U/L ALT 36 H (0-31) U/L Alkaline Phosphatase 70 (39-117) U/L Total Protein 7.3 (6.5-8.0) g/dL Albumin 3.9 (3.5-5.0) g/dL Urine Color YELLOW Urine Appearance HAZY Urine pH 6.5 (5.0-8.0) Ur Specific [place] 1.010 (1.005-1.025) Urine Protein NEG (NEG-TRACE) MG/DL Urine Glucose (UA) NEG (NEG) MG/DL Urine Ketones 5 (NEG) MG/DL Urine Blood TRACE (NEG) Urine Nitrite NEG (NEG) Ur Leukocyte Esterase NEG (NEG) Urine RBC 1-4 (0) /HPF Urine WBC 0 (0-4) /HPF Ur Squamous Epith Cells 1+ /LPF Urine Bacteria NONE /LPF Urine Mucus 2+ /LPF Coronavirus (PCR) (Negative) Influenza Type A (PCR) (Negative) Influenza Type B (PCR) (Negative) RSV RNA Qual (PCR) (Negative) Discharge Plan Discharge Clinical Impression: Strep pharyngitis Patient Disposition: Home, Self-Care Instructions: Pharyngitis (ED) Additional Instructions: You were treated for strep pharyngitis with an injection today, discontinue taking previously prescribed antibiotics Continue taking Tylenol and Motrin at home for fever/swelling/pain Continue to monitor fevers, her spiking fevers, pain persists or worsens, he developed cough, abdominal pain, persistent nausea or vomiting please return to the ED Make sure staying hydrated at home, really push fluids, drink Gatorade, Pedialyte, water Follow-up with her doctor in 2 days Zofran as an antinausea medication, take as needed Prescriptions: New ondansetron HCl [Zofran] 4 mg tablet 4 mg PO Q8H PRN (Reason: nausea and vomiting) Qty: 10 RF: 0 No Action ondansetron HCl [Zofran] 4 mg tablet 4 mg PO Q8H PRN (Reason: nausea and vomiting) Qty: 10 RF: 0 ondansetron 4 mg tablet,disintegrating 4 mg PO Q6H PRN (Reason: nausea and vomiting) Qty: 10 RF: 0 Referrals: Arpita Edmonds MD [Primary Care Provider] - 2 days
[2020-12-04 12:55] VITALS: BP 126/83; PULSE 90; RESP 17; TEMP 37.2; O2SAT 98; BMI 27.3
[2020-12-04] MEDS: ondansetron HCL 4 MG/2 ML VIAL IVPUSH (13:17)
[2020-12-04] MEDS: 0.9 % Sodium Chloride 1,000 ML 999 ML IVCONT ×2 (13:17→14:39)
[2020-12-04 13:28] LABS: MANUAL DIFF FLAG NO
[2020-12-04 13:41] LABS: Basophils Percent Auto 0.2 % (0-2); Hematocrit 35.6 % (37-47); Hemoglobin 11.5 g/dl (12.0-16.0); Imm Gran Pct Auto 0.6 % (0.0-0.4); Lymphocytes Percent Auto 6.1 % (20-40); Mean Corpuscular HGB Conc 32.3 g/dl (31.0-35.0); Mean Corpuscular Hemoglobin 29.4 pg (27.0-33.0); Mean Platelet Volume 11.8 fL (9.4-12.3); Monocytes Absolute Auto 1.1 X10*3/uL (0.1-1.2); Neutrophils Absolute Auto 13.9 X10*3/uL (2.0-8.3); Neutrophils Percent Auto 86.1 % (45-73); Platelet Count 193 X10*3/uL (160-400); Red Blood Count 3.91 X10*6/uL (4.20-5.50); Red Cell Distribution Width 14.5 % (11.0-16.0); White Blood Count 16.1 X10*3/uL (4.8-10.8)
[2020-12-04 13:58] LABS: Anion Gap 12 (12-20); Blood Urea Nitrogen 6 mg/dL (9-16); Calcium 8.9 mg/dL (8.4-10.2); Carbon Dioxide 25 mmol/L (22-29); Chloride 104 mmol/L (96-108); Estimated Glomerular Filt Rate > 60; Glucose Random 107 mg/dL (60-115); Potassium 3.1 mmol/L (3.3-5.1); Sodium 138 mmol/L (135-145)
[2020-12-04 14:02] LABS: Alanine Aminotransferase 36 U/L (0-31); Albumin Level 3.9 g/dL (3.5-5.0); Alkaline Phosphatase 70 U/L (39-117); Aspartate Amino Transferase 42 U/L (5-31); Bilirubin Direct 0.2 mg/dL (0.0-0.5); Bilirubin Total 0.4 mg/dL (0.0-1.0); Magnesium 2.2 mg/dL (1.6-2.6); Total Protein 7.3 g/dL (6.5-8.0)
[2020-12-04 14:16] LABS: Influenza A PCR NEGATIVE (Negative); Influenza B PCR NEGATIVE (Negative); Resp Syncy Virus RNA Qual PCR NEGATIVE (Negative); SARS COV2 PCR INHOUSE NEGATIVE (Negative)
[2020-12-04] MEDS: Potassium Chloride Packet 20 MEQ PACKET 40 MEQ PO (14:39)
[2020-12-04 15:04] LABS: Glucose Urine UA NEG (NEG); Leukocyte Esterase Urine NEG (NEG); Nitrite Urine NEG (NEG); PH 6.5 (5.0-8.0); Urine Blood TRACE (NEG); Urine Ketones 5 MG/DL (NEG); Urine Protein NEG (NEG-TRACE)
[2020-12-04 15:05] LABS: Appearance Urine HAZY; Color Urine YELLOW
[2020-12-04 15:13] LABS: Mucus Urine 2+ /LPF; Squamous Epithelial Cell Urine 1+ /LPF; WBC Urine 0 /HPF (0-4)
[2020-12-04 16:02] VITALS: BP 133/91; PULSE 91; RESP 18; TEMP 36.9; O2SAT 100
[2020-12-04] MEDS: Acetaminophen 325 MG TABLET 650 MG PO (16:22)
[2020-12-04] MEDS: Ibuprofen 400 MG TABLET PO (16:23)
[2020-12-04] MEDS: Penicillin G Benzathine 1,200,000 UNIT/2 ML SYRINGE 1200000 UNIT IM (16:46)
[2020-12-04 16:48] VITALS: BP 132/84; PULSE 95; RESP 17; O2SAT 100
== END 2020-12-04 17:09 | disposition home or self-care (01) ==
PROVIDERS: Physician Assistant; Emergency Provider Emergency Medicine; PCP Pediatrics
DX: J02.0 Streptococcal pharyngitis (principal); E87.6 Hypokalemia; Z20.822 Contact with and (suspected) exposure to COVID-19
CPT/HCPCS: 0241U; 36415; 71045; 80048; 80076; 81001; 83735; 85025; 96361; 96374; 96375; 99284; J0561; J2405

== ENCOUNTER 2021-07-18 14:28 | Outpatient (REF) | payer MEDICAID, SELFPAY ==
--- NOTE | ~2021-07-18 | XR_ITS ---
EXAMINATION: XR CHEST CLINICAL INFORMATION: Cough. COMPARISON: Chest radiograph dated from 12/04/2020. TECHNIQUE: 2 views of the chest were obtained. FINDINGS: No significant abnormality is noted involving the heart, lungs, mediastinum, bony thorax or soft tissues. XR/XR chest 2V IMPRESSION: Unremarkable examination.
== END 2021-07-18 14:29 | disposition home or self-care (01) ==
LOC: HO.XRAY 14:28
PROVIDERS: PCP Pediatrics; Visit Provider Dentist Pediatric Dentistry
DX: R05.9 Cough, unspecified (principal)
CPT/HCPCS: 71046

== ENCOUNTER 2021-10-21 17:37 | Emergency (ER) | payer MEDICAID, SELFPAY | END 2021-10-21 18:57 | disposition left against medical advice (07) | LOC: HO.ED 18:53 | PROVIDERS: Emergency Provider Emergency Medicine; PCP Pediatrics | DX: R79.89 Other specified abnormal findings of blood chemistry (principal) ==

== ENCOUNTER 2021-10-21 19:00 | Emergency (ER) | payer MEDICAID, SELFPAY ==
[2021-10-21 19:10] VITALS: BP 132/81; BP 151/91; PULSE 56; PULSE 60; RESP 16; TEMP 36.9; O2SAT 97; O2SAT 99; BMI 29.8
--- NOTE | 2021-10-21 19:22 | ED.DIZZY ---
HPI - Dizziness General Chief Complaint: Dizziness Stated Complaint: dizziness Time Seen by Provider: 10/21/21 19:09 Source: patient Mode of arrival: ambulatory Limitations: no limitations History of Present Illness HPI Narrative: 35 y/o female presents to the ER from home via EMS for evaluation of dizziness in the setting of low hemoglobin. One month ago she had liposuction and breast augmentation in [facility]. She has been feeling dizzy intermittently for the last 7 days and had blood work done today. She reports the dizziness is with position changes, when standing up quickly is the worst. She was seen by her doctor today and her hemoglobin went from 9.9 last week to 8.3 today and she was told should be seen in an emergency room. She reports her repeat hemoglobin today was done in the office via fingerstick. She is worried she may need a blood transfusion. She denies any chest pain or shortness of breath. No weakness. She is on iron for history of iron deficiency anemia. She is on her period and is bleeding heavily. MD elicited complaint: dizziness Pertinent past history: other (recent surgery) Onset (ago): day(s) Timing: gradual onset Severity: moderate Description: lightheadedness Context: change in body position and other Exacerbating factors: movement/ambulation Relieving factors: rest Associated symptoms: denies other symptoms Related Data Previous Rx's Medication Instructions Recorded ondansetron HCl 4 mg tablet 4 mg PO Q8H PRN #10 tab 03/27/20 (Zofran) ondansetron 4 mg disintegrating 4 mg PO Q6H PRN #10 tab 10/13/20 tablet ondansetron HCl 4 mg tablet 4 mg PO Q8H PRN #10 tab 12/04/20 (Zofran) Allergies Allergy/AdvReac Type Severity Reaction Status Date / Time Sulfa (Sulfonamide Allergy Unknown SHORTNESS Verified 03/27/20 15:11 Antibiotics) OF BREATH [SULFA (SULFONAMIDE ANTIBIOTICS)] Review of Systems Review of Systems: Constitutional: No Fever, No Chills ENT/Mouth: No sore throat, No Rhinorrhea, No Swallowing Difficulty Eyes: No Eye Pain, No Swelling, No Redness Cardiovascular: No Chest Pain, No SOB, No Orthopnea, No Edema Respiratory: No Cough, No Sputum, No Wheezing, No dyspnea Gastrointestinal: No Nausea, No Vomiting, No Diarrhea, No abdominal Pain, No Hematochezia, No Melena Genitourinary: No Dysuria, No Urinary Frequency, No Hematuria Musculoskeletal: No joint pain, No Myalgias Skin: No Skin Lesions, No rash Neuro: No Weakness, No Numbness, + Dizziness, No Headache Psych: + Anxiety/Panic, No Depression Heme/Lymph: No Bruising, No Lymphadenopathy Endocrine: No Polyuria, No Polydipsia PMF Past Medical History Medical History (Updated 10/21/21 @ 20:38 by KARMA Garcia) delivery delivered Hernia Vomiting Surgical History H/O abdominoplasty Social History Social History Alcohol intake: current Alcohol intake frequency: holidays/special occasions only Patient Tobacco Use Status: Current someday Tobacco user Advance Directives: No Advance Directives Information Provided: No Patient : No Physical Exam Vital Signs: Vital Signs: Last Vital Signs Temp 98.4 F 10/21/21 19:10 Pulse 69 10/21/21 20:40 Resp 16 10/21/21 19:31 BP 136/88 10/21/21 20:40 Pulse Ox 99 10/21/21 19:10 BMI result Body Mass Index 29.8 Appearance: Alert. Oriented X3. No acute distress. Eyes: Pupils equal, round and reactive to light. ENT: Pharynx normal. Neck: Normal inspection. Neck supple. CVS: Normal heart rate and rhythm. Pulses normal. Chest wall with well-healing surgical scars from recent breast augmentation. No ecchymosis, erythema, tenderness or discharge. Respiratory: No respiratory distress. Breath sounds normal. Abdomen: Well-healing surgical scar along the entire lower abdomen with no surrounding ecchymosis, erythema or tenderness. Abdominal binder in place Soft and nontender. +BS x4 Skin: Skin warm and dry. Normal skin color. Normal skin turgor. No rashes. Extremities: No lower extremity edema. Neuro: Oriented X 3. No motor deficit. No sensory deficit. Steady gait. Course Course Course Narrative: 35-year-old female 1 month postop from a abdominal liposuction and breast augmentation who presents to the ER for evaluation of dizziness and reported anemia. She reports a history of anemia and is on iron tablets. She reports her hemoglobin on fingerstick today in the office was 8.3. Baseline hemoglobin is around 11 or 12. She is currently on her menses and has heavy bleeding. From a surgical standpoint she is healing well, she has no ecchymosis on her abdominal wall or chest wall. Her pain is well controlled. Will plan to check serum H&H and basic lab work. Will check orthostatic vital signs as well. Dizziness could be due to dietary restrictions. No headache or neck pain. Reevaluation(s) Reevaluation #1: H/H . Labs unremarkable. Orthostatics negative. Stable for d/c home. MDM - Dizziness Lab Data Result diagrams: 10/21/21 19:41 10/21/21 19:41 Labs: Lab Results 10/21/21 10/21/21 10/21/21 Range/Units 19:41 19:41 19:41 WBC 7.2 (4.8-10.8) X10*3/uL RBC 3.41 L (4.20-5.50) X10*6/uL Hgb 10.1 L (12.0-16.0) g/dl Hct 32.9 L (37.0-47.0) % MCV 96.5 (80.0-98.0) fL MCH 29.6 (27.0-33.0) pg MCHC 30.7 L (31.0-35.0) g/dl RDW 13.7 (11.0-16.0) % Plt Count 268 (160-400) X10*3/uL MPV 11.0 (9.4-12.3) fL Immature Gran % (Auto) 0.1 (0.0-0.4) % Neut % (Auto) 46.3 (45-73) % Lymph % (Auto) 38.2 (20-40) % [place] % (Auto) 9.7 (2-11) % Eos % (Auto) 5.3 H (0-4) % Baso % (Auto) 0.4 (0-2) % Lymph # (Auto) 2.8 (1.2-4.9) X10*3/uL [place] # (Auto) 0.7 (0.1-1.2) X10*3/uL Eos # (Auto) 0.4 (0.0-0.4) X10*3/uL Baso # (Auto) 0.0 (0.0-0.2) X10*3/uL Abs Immat Gran (auto) 0.01 (0.00-0.03) X10*3/uL Absolute Neuts (auto) 3.3 (2.0-8.3) x10*3/uL Absolute Nucleated RBC 0.000 (0.0-0.012) X10*3/uL Nucleated RBC % (auto) 0.0 (0.0-0.2) /100WBC PT 11.6 (9.9-13.0) SEC INR 1.0 (0.9-1.1) APTT 29.2 (24.1-38.0) SEC Sodium 139 (135-145) mmol/L Potassium 4.2 D (3.3-5.1) mmol/L Chloride 105 (96-108) mmol/L Carbon Dioxide 25 (22-29) mmol/L Anion Gap 13 (12-20) BUN 13 (9-16) mg/dL Creatinine 0.59 (0.5-1.4) mg/dL Estim Creat Clear Calc 148.8 Estimated GFR > 60 Random Glucose 88 (60-115) mg/dL Calcium 8.9 (8.4-10.2) mg/dL Magnesium 2.2 (1.6-2.6) mg/dL Total Bilirubin 0.3 (0.0-1.0) mg/dL Direct Bilirubin < 0.2 (0.0-0.5) mg/dL AST 25 D (5-31) U/L ALT 25 (0-31) U/L Alkaline Phosphatase 91 D (39-117) U/L Total Protein 6.9 (6.5-8.0) g/dL Albumin 3.5 (3.5-5.0) g/dL Blood Type Antibody Screen 10/21/21 Range/Units 19:41 WBC (4.8-10.8) X10*3/uL RBC (4.20-5.50) X10*6/uL Hgb (12.0-16.0) g/dl Hct (37.0-47.0) % MCV (80.0-98.0) fL MCH (27.0-33.0) pg MCHC (31.0-35.0) g/dl RDW (11.0-16.0) % Plt Count (160-400) X10*3/uL MPV (9.4-12.3) fL Immature Gran % (Auto) (0.0-0.4) % Neut % (Auto) (45-73) % Lymph % (Auto) (20-40) % [place] % (Auto) (2-11) % Eos % (Auto) (0-4) % Baso % (Auto) (0-2) % Lymph # (Auto) (1.2-4.9) X10*3/uL [place] # (Auto) (0.1-1.2) X10*3/uL Eos # (Auto) (0.0-0.4) X10*3/uL Baso # (Auto) (0.0-0.2) X10*3/uL Abs Immat Gran (auto) (0.00-0.03) X10*3/uL Absolute Neuts (auto) (2.0-8.3) x10*3/uL Absolute Nucleated RBC (0.0-0.012) X10*3/uL Nucleated RBC % (auto) (0.0-0.2) /100WBC PT (9.9-13.0) SEC INR (0.9-1.1) APTT (24.1-38.0) SEC Sodium (135-145) mmol/L Potassium (3.3-5.1) mmol/L Chloride (96-108) mmol/L Carbon Dioxide (22-29) mmol/L Anion Gap (12-20) BUN (9-16) mg/dL Creatinine (0.5-1.4) mg/dL Estim Creat Clear Calc Estimated GFR Random Glucose (60-115) mg/dL Calcium (8.4-10.2) mg/dL Magnesium (1.6-2.6) mg/dL Total Bilirubin (0.0-1.0) mg/dL Direct Bilirubin (0.0-0.5) mg/dL AST (5-31) U/L ALT (0-31) U/L Alkaline Phosphatase (39-117) U/L Total Protein (6.5-8.0) g/dL Albumin (3.5-5.0) g/dL Blood Type O Positive Antibody Screen NEGATIVE Critical Care Time Critical Care Time Critical Care Time: No Discharge Plan Discharge Clinical Impression: Mild chronic anemia, Dizziness Patient Disposition: Home, Self-Care Instructions: Lightheadedness (ED), Anemia (ED) Additional Instructions: Your hemoglobin today was 10.1 and hematocrit was 32.9. No indication or need for blood transfusion at this time (usually required if hemoglobin reaches 7) Make sure you are eating enough throughout the day and drink plenty of water. When you change positions, do so slowly. Follow up with your doctor If you develop new or worsening symptoms call 911 or come back to the ER for further evaluation. Prescriptions: No Action ondansetron HCl [Zofran] 4 mg tablet 4 mg PO Q8H PRN (Reason: nausea and vomiting) Qty: 10 0RF ondansetron 4 mg tablet,disintegrating 4 mg PO Q6H PRN (Reason: nausea and vomiting) Qty: 10 0RF ondansetron HCl [Zofran] 4 mg tablet 4 mg PO Q8H PRN (Reason: nausea and vomiting) Qty: 10 0RF Referrals: Physician,Unknown J [Primary Care Provider] -
[2021-10-21 19:31] VITALS: RESP 16
[2021-10-21 19:44] LABS: MANUAL DIFF FLAG NO
[2021-10-21 19:49] LABS: Basophils Percent Auto 0.4 % (0-2); Eosinophils Absolute Auto 0.4 X10*3/uL (0.0-0.4); Eosinophils Percent Auto 5.3 % (0-4); Hematocrit 32.9 % (37.0-47.0); Hemoglobin 10.1 g/dl (12.0-16.0); Imm Gran Abs Auto 0.01 X10*3/uL (0.00-0.03); Imm Gran Pct Auto 0.1 % (0.0-0.4); Lymphocytes Absolute Auto 2.8 X10*3/uL (1.2-4.9); Lymphocytes Percent Auto 38.2 % (20-40); Mean Corpuscular HGB Conc 30.7 g/dl (31.0-35.0); Mean Corpuscular Hemoglobin 29.6 pg (27.0-33.0); Mean Corpuscular Volume 96.5 fL (80.0-98.0); Monocytes Absolute Auto 0.7 X10*3/uL (0.1-1.2); Monocytes Percent Auto 9.7 % (2-11); Neutrophils Absolute Auto 3.3 x10*3/uL (2.0-8.3); Neutrophils Percent Auto 46.3 % (45-73); Platelet Count 268 X10*3/uL (160-400); Red Blood Count 3.41 X10*6/uL (4.20-5.50); Red Cell Distribution Width 13.7 % (11.0-16.0); White Blood Count 7.2 X10*3/uL (4.8-10.8)
[2021-10-21 19:55] LABS: Prothrombin Time 11.6 SEC (9.9-13.0)
[2021-10-21 19:57] LABS: Partial Thromboplastin Time 29.2 SEC (24.1-38.0)
[2021-10-21 20:05] LABS: Alanine Aminotransferase 25 U/L (0-31); Albumin Level 3.5 g/dL (3.5-5.0); Alkaline Phosphatase 91 U/L (39-117); Anion Gap 13 (12-20); Aspartate Amino Transferase 25 U/L (5-31); Bilirubin Direct < 0.2 mg/dL (0.0-0.5); Bilirubin Total 0.3 mg/dL (0.0-1.0); Blood Urea Nitrogen 13 mg/dL (9-16); Calcium 8.9 mg/dL (8.4-10.2); Carbon Dioxide 25 mmol/L (22-29); Chloride 105 mmol/L (96-108); Creatinine Clr Calc Pharmacy 148.8; Estimated Glomerular Filt Rate > 60; Glucose Random 88 mg/dL (60-115); Magnesium 2.2 mg/dL (1.6-2.6); Potassium 4.2 mmol/L (3.3-5.1); Sodium 139 mmol/L (135-145); Total Protein 6.9 g/dL (6.5-8.0)
[2021-10-21 20:32] VITALS: BP 133/80; PULSE 62
[2021-10-21 20:39] VITALS: BP 134/84; PULSE 66
[2021-10-21 20:40] VITALS: BP 136/88; PULSE 69
== END 2021-10-21 21:23 | disposition home or self-care (01) ==
PROVIDERS: Physician Assistant; Emergency Provider Internal Medicine
DX: R42 Dizziness and giddiness (principal); D64.9 Anemia, unspecified; Z79.899 Other long term (current) drug therapy
CPT/HCPCS: 36415; 80048; 80076; 83735; 85025; 85610; 85730; 86850; 86900; 86901; 99283; 99284

== ENCOUNTER → 2021-10-30 09:13 | Outpatient (BNVA) | payer MEDICAID, SELFPAY | PROVIDERS: PCP Pediatrics; Referring Provider Pediatrics; Visit Provider Surgery | DX: Z98.82 Breast implant status (principal) | CPT/HCPCS: 99202 ==

== ENCOUNTER 2022-01-12 13:45 | Outpatient (REF) | payer MEDICAID, SELFPAY ==
--- NOTE | ~2022-01-12 | US_ITS ---
EXAMINATION: MM DIAGNOSTIC DIGITAL BREAST TOMOSYNTHESIS, BILATERAL US DIAGNOSTIC ULTRASOUND BREAST, RIGHT CLINICAL INFORMATION: 36-year-old with saline implants performed in [place], [place] in 2020. Implants replaced with gel implants in [facility] in September 2021. Patient notes asymmetry of breasts, right higher since surgery. Patient also notes implant size smaller than was expected. No erythema or discharge. No known family history of breast cancer. The lifetime risk of breast cancer based on the Tyrer-Cuzick Model is 8%. COMPARISON: Mammography: 08/27/2017 (diagnostic baseline). TECHNIQUE: Digital mammography is performed in craniocaudal and mediolateral oblique views along with computer-aided detection (CAD). Digital breast tomosynthesis is performed in implant-displaced craniocaudal and implant-displaced mediolateral oblique views along with computer-aided detection (CAD). Synthesized 2D images are generated from the tomosynthesis. Ultrasound right breast is targeted to the 11:00 through 1:00 position using grayscale imaging and color Doppler without and with harmonics. FINDINGS: There are scattered areas of fibroglandular density (ACR BI-RADS breast composition Category b). There are bilateral implants. The implants appears smooth in contour and similar in size. The right implant is positioned slightly higher compared with the left consistent with the patient's clinical concern. There is no mass or architectural abnormality or abnormal calcifications. Again, there are some scattered benign predominantly dermal calcifications bilateral posterior inferior medial breasts. The axilla and skin contours are unremarkable. Ultrasound right breast demonstrates no cystic or solid mass or architectural abnormality. Results are discussed with the patient at time of visit, using an circuit breaker assembler. US/US breast RT limited IMPRESSION: -No mammographic evidence of malignancy or inflammatory changes. -Right implant appears positioned slightly higher compared with the left on the MLO views consistent with the patient's clinical concern. ASSESSMENT: BI-RADS 2: Benign RECOMMENDATION: 1. Patient should be managed based on the clinical impression. Suggest plastic surgery consult in order to address patient's concerns regarding expectations of recent implant surgery. 2. Otherwise, routine annual screening mammography, beginning age 40, or earlier as clinical risk factors warrant. This patient's information was entered into a reminder system with a target due date for their next mammogram.
== END 2022-01-12 13:46 | disposition home or self-care (01) ==
LOC: HO.MAMMO 13:45
PROVIDERS: PCP Pediatrics; Visit Provider Pediatrics
DX: N63.15 Unspecified lump in the right breast, overlapping quadrants (principal)
CPT/HCPCS: 76642; 77062; 77066

== ENCOUNTER → 2022-05-27 09:48 | Outpatient (BNVA) | payer MEDICAID, SELFPAY | PROVIDERS: PCP Pediatrics; Referring Provider Pediatrics; Visit Provider Internal Medicine Cardiovascular Disease | DX: R00.2 Palpitations (principal) | CPT/HCPCS: 93005; 99202 ==

== ENCOUNTER → 2022-07-07 10:21 | Outpatient (REF) | payer MEDICAID, SELFPAY ==
--- NOTE | 2022-07-07 10:30 | CA_ITS ---
Transthoracic Echocardiogram Patient (Last, First, Middle): Td Loya, Gender: Female Date of : 1985 Age: 36 Procedure Date: 07/07/2022 Procedure Type: Transthoracic Echocardiogram Location: OP Height: 170.18 cm Weight: 80.74 kg BSA: 1.92 m2 Heart Rate: bpm BP: 124 / 86 mmHg Data Processing Systems Consultant: JORGE A Referring MD: Yuan Pollock MD Material Inspector: Yuan Pollock MD Symptoms: R00.2 - Palpitations Study Quality: Adequate Conclusions: - Normal left ventricular cavity size. There is normal left ventricular wall thickness. The left ventricular systolic function is low normal. The visually estimated ejection fraction is between 50-55%. - Normal right ventricular cavity size and systolic function. - There is mild dilatation of the sinuses of Valsalva measuring 3.83 cm and mild dilatation of the ascending aorta measuring 3.30 cm. - Borderline global longitudinal strain at -17%. Findings Left Ventricle Normal left ventricular cavity size. There is normal left ventricular wall thickness. The left ventricular systolic function is low normal. The visually estimated ejection fraction is between 50-55%. There is no evidence of regional wall motion abnormalities. Diastolic function is normal for age. Right Ventricle Normal right ventricular cavity size and systolic function. Atria Both atria are normal in size. Aortic Valve The aortic valve was not well visualized. There is no aortic valve stenosis. There is no aortic valve regurgitation. Mitral Valve Normal mitral valve structure and function. The mitral valve appears normal. There is no mitral valve regurgitation. There is no mitral valve stenosis. Pulmonic Valve The pulmonic valve is likely normal. Tricuspid Valve Normal tricuspid valve structure and function. There is trace tricuspid valve regurgitation. Normal right atrial pressure. There is no evidence of pulmonary hypertension. Great Vessels There is mild dilatation of the sinuses of Valsalva measuring 3.83 cm and mild dilatation of the ascending aorta measuring 3.30 cm. The visualized portions of the pulmonary artery and branches are normal. Venous The inferior vena cava is normal in size and collapses greater than 50% with inspiration. Pericardium/Pleural There is no evidence of pericardial effusion. Prior Study Comparison No prior study available for comparison. Measurements 2D Linear Measurements IVSd: 0.80 0.6-0.9/0.6-1.0 cm LVIDd: 4.81 3.9-5.3/4.2-5.9 cm LVIDd Index: 2.51 2.4-3.2/2.2-3.1 cm/m2 LVIDs: 3.44 2.0-3.6 cm LVPWd: 0.90 0.7-1.1 cm LA Diam: 2.80 2.7-3.8/3.0-4.0 cm LAIDs Index: 1.46 1.5-2.3 cm/m2 LV Mass: 170.93 67-162/88-224 g LV Mass Index: 89.03 43-95/49-115 g/m2 LVOT Diam: 2.20 3.0+(-)1.3 cm 2D Systolic Function EF 4C: 51.50 >55% EF 2C: 56.00 >55% EF BiP: 53.00 >55% Mitral Valve MV Pk E: 0.87 MV PK A: 0.51 MV Decel Time: 232.00 E/A: 1.70 E'Lateral: 13.80 E'Medial: 8.70 E/E' Med: 9.90 E/E' Lat: 6.30 PHT: 68.00 MVA PHT: 3.24 Decel Desha: 3.72 Aortic Valve AoV Pk Ronnie: 1.15 AoV Mn Ronnie: 0.92 AoV VTI: 0.26 AoV Pk Grad: 5.00 Aov Mn Grad: 4.00 CAR Cont.VTI: 2.62 LVOT LVOT Pk Ronnie: 0.86 LVOT Mn Ronnie: 0.57 LVOT VTI: 0.18 LVOT Pk Grad: 3.00 LVOT Mn Grad: 2.00 LVOT Diam: 2.20 LVOT Area: 3.80 Diastolic Function MV Pk E: 0.87 MV Pk A: 0.51 E/A: 1.70 E'Medial: 8.70 E/E' Med: 9.90 E' Laterial: 13.80 E/E' Lat: 6.30 Right Ventricle TAPSE (mm): 25.40 TVS' Ronnie: 11.40 Tricuspid Valve TR Pk Ronnie: 1.77 TR Pk Grad: 13.00 RA Press: 3.00 RVSP: 16.00 Great Vessels Aorta Sinus of Valsalva: 3.83 2.0-3.[address] Ridge: 2.96 1.7-3.4 cm Ao Asc: 3.30 2.1-3.4 cm Ao Arch: 2.90 Updated in Other Vendor System with Status of Final Yuan Pollock MD electronically signed on 07/07/2022 6:11:12 PM with status of Final
--- NOTE | 2022-07-07 11:06 | HM_ITS ---
Conclusion: 1. Patient was monitored for total period of 1 day and 23 hours 2. Baseline was normal sinus rhythm with average heart of 74 beats per minute 3. Very rare PACs noted 4. No significant pauses or bradycardia noted 5. No patient reported symptoms MTDD
[2022-07-07 12:28] LABS: Hematocrit 39.1 % (37.0-47.0); Hemoglobin 12.5 g/dl (12.0-16.0); Mean Corpuscular Hemoglobin 30.3 pg (27.0-33.0); Mean Corpuscular Volume 94.7 fL (80.0-98.0); Mean Platelet Volume 11.5 fL (9.4-12.3); Platelet Count 276 X10*3/uL (160-400); Red Blood Count 4.13 X10*6/uL (4.20-5.50); Red Cell Distribution Width 12.6 % (11.0-16.0); White Blood Count 9.5 X10*3/uL (4.8-10.8)
[2022-07-07 14:27] LABS: Iron 69 mcg/dL (30-160); Percent Iron Saturation 20 % (15-50); Total Iron Binding Capacity 347 mcg/dL (228-428); Unsaturated Iron Binding 278 ug/dL
[2022-07-07 14:30] LABS: Ferritin 45 ng/mL (10-122); TSH reflex Free T4 0.41 uIU/mL (0.32-4.0)
== END ==
LOC: HO.CARD 10:21
PROVIDERS: PCP Pediatrics; Visit Provider Internal Medicine Cardiovascular Disease
DX: R00.2 Palpitations (principal)
CPT/HCPCS: 36415; 82728; 83540; 84443; 85027; 93225; 93306; 93356

== ENCOUNTER 2022-07-10 14:11 | Outpatient (REF) | payer MEDICAID, SELFPAY ==
[2022-07-10 15:48] LABS: Anion Gap 13 (12-20); Blood Urea Nitrogen 14 mg/dL (9-16); Calcium 9.2 mg/dL (8.4-10.2); Carbon Dioxide 27 mmol/L (22-29); Chloride 101 mmol/L (96-108); Estimated Glomerular Filt Rate > 60; Glucose Random 91 mg/dL (60-115); Potassium 4.4 mmol/L (3.3-5.1); Sodium 137 mmol/L (135-145)
== END 2022-07-10 14:12 | disposition home or self-care (01) ==
LOC: HO.LAB 14:11
PROVIDERS: Visit Provider Internal Medicine Cardiovascular Disease
DX: I77.810 Thoracic aortic ectasia (principal)
CPT/HCPCS: 36415; 80048

== ENCOUNTER 2022-07-22 08:54 | Outpatient (REF) | payer MEDICAID, SELFPAY ==
--- NOTE | ~2022-07-22 | CT_ITS ---
EXAMINATION: CT ANGIOGRAM CHEST CLINICAL INFORMATION: Thoracic aortic ectasia. COMPARISON: Chest radiograph 07/18/2021. TECHNIQUE: Multiple axial images were obtained through the chest after the administration of 70 mL of Omnipaque 350 intravenous contrast. Additional 2-D coronal and sagittal reformatted images and axial 3-D maximum intensity projection MIP images are generated on the CT workstation. This CT examination was performed using dose optimization techniques as appropriate, variously including the following: *Automated exposure control *Adjustment of mA and/or kV according to patient size (this includes techniques or standardized protocols for targeted exams where dose is matched to indication/reason for exam; i.e. extremities or head) *Use of iterative reconstruction technique DLP: 127 mGy-cm VASCULAR FINDINGS: The thoracic aorta is normal in size with a maximum transverse dimension of the ascending thoracic aortic of 3.2 cm. At the sinuses of Valsalva, this measurement approaches 3.4 cm. This measurement is even less when measured perpendicular to the center line. No aortic dissection or aneurysm is seen. A normal three-vessel branching pattern of the aortic arch is seen with widely patent great vessels. Small visualized portion of the abdominal aorta appears unremarkable. NONVASCULAR FINDINGS: Lungs: The lungs are clear with no evidence of inflammation or nodules. Mediastinum: Heart size normal. No mediastinal or hilar lymphadenopathy is seen. The thyroid gland is unremarkable. Pleura: There is no pleural effusion. No pleural mass or thickening. Axilla: No lymphadenopathy. Chest Wall: Bilateral breast implants are present. Upper Abdomen: Unremarkable. Osseous Structures: There is a mild anterior wedge compression fracture of a midthoracic vertebral body similar to the chest radiograph. Although there is no lateral radiograph accompanied with the 12/04/2020 study I suspect that this finding is still present. CT/CT angio chest aorta IMPRESSION: 1. The thoracic aorta is normal in caliber with a maximum dimension of between 3.2 cm in the ascending aorta and 3.4 cm at the sinuses of Valsalva. No evidence of aortic aneurysm. 2. Incidental note made of a nonacute mild anterior wedge compression fracture of a midthoracic vertebral body. 3. Bilateral breast implants are present. Fleischner guidelines were followed.
[2022-07-22] MEDS: iohexoL 350 MG/ML 100 ML INFUS..BTL IV (09:30)
== END 2022-07-22 08:55 | disposition home or self-care (01) ==
LOC: HO.CT 08:54
PROVIDERS: PCP Pediatrics; Visit Provider Internal Medicine Cardiovascular Disease
DX: I77.810 Thoracic aortic ectasia (principal)
CPT/HCPCS: 71275; Q9967

== ENCOUNTER 2022-11-30 14:57 | Outpatient (REF) | payer MEDICAID, SELFPAY ==
--- NOTE | ~2022-11-30 | XR_ITS ---
EXAMINATION: XR WRIST, RIGHT CLINICAL INFORMATION: Pain. COMPARISON: None available. TECHNIQUE: PA, lateral, and oblique views of the right wrist. FINDINGS: The bones and soft tissues are normal. No fracture. Alignment is anatomic with normal joint spaces. No erosions or abnormal soft tissue calcifications. XR/XR wrist RT 2V IMPRESSION: Normal right wrist.
== END 2022-11-30 14:58 | disposition home or self-care (01) ==
LOC: HO.XRAY 14:57
PROVIDERS: Visit Provider Internal Medicine
DX: M25.531 Pain in right wrist (principal)
CPT/HCPCS: 73100

== ENCOUNTER → 2022-12-11 11:21 | Outpatient (BNVA) | payer MEDICAID, SELFPAY | PROVIDERS: PCP Pediatrics; Visit Provider Internal Medicine Cardiovascular Disease | DX: R00.2 Palpitations (principal) | CPT/HCPCS: 99212 ==

== ENCOUNTER 2023-01-08 19:39 | Outpatient (REF) | payer MEDICAID, SELFPAY ==
[2023-01-08 20:22] LABS: Influenza A PCR NEGATIVE (Negative); Influenza B PCR NEGATIVE (Negative); Resp Syncy Virus RNA Qual PCR NEGATIVE (Negative); SARS COV2 PCR INHOUSE NEGATIVE (Negative)
== END 2023-01-08 19:40 | disposition home or self-care (01) ==
LOC: HO.HHCLNP 19:39
PROVIDERS: Visit Provider Internal Medicine Geriatric Medicine
DX: J02.8 Acute pharyngitis due to other specified organisms (principal); B97.89 Other viral agents as the cause of diseases classified elsewhere; Z20.822 Contact with and (suspected) exposure to COVID-19
CPT/HCPCS: 0241U; 87070

== ENCOUNTER 2023-01-23 17:13 | Emergency (ER) | payer MEDICAID, SELFPAY ==
--- NOTE | ~2023-01-23 | US_ITS ---
EXAMINATION: US PELVIS CLINICAL INFORMATION: Lower pelvic pain COMPARISON: 10/12/2018 TECHNIQUE: Ultrasound of the pelvis is performed using both transabdominal and transvaginal transducers along with Doppler. Transvaginal imaging is performed due to inadequate visualization transabdominally. FINDINGS: Uterus: The uterus is anteverted and measures 9.6 x 5.4 x 4.9 cm. The double wall endometrial thickness is 12 mm. The uterus is smooth in contour and has normal myometrial echogenicity. No visible fibroid. Nabothian cysts present within the cervix. Adnexa: Both ovaries are visualized. There is normal color flow to the adnexa. There is no ovarian torsion. Trace pelvic free fluid within physiologic normal limits. Right ovary measures 4.2 x 3.5 x 4.3 cm. There is a 3.4 cm cyst containing lacy internal echoes compatible with a hemorrhagic cyst. No follow-up imaging recommended. Left ovary measures 2.7 x 1.8 x 2.1 cm. US/US pelvic and transvaginal IMPRESSION: * No evidence of ovarian torsion. * There is a 3.4 cm hemorrhagic cyst within the right ovary. No follow-up imaging recommended.
[2023-01-23 17:26] VITALS: BP 120/81; PULSE 75; RESP 18; TEMP 36.4; O2SAT 98; BMI 29.6
[2023-01-23 17:57] LABS: MANUAL DIFF FLAG NO
[2023-01-23 18:18] LABS: Basophils Percent Auto 0.3 % (0-2); Eosinophils Absolute Auto 0.1 X10*3/uL (0.0-0.4); Eosinophils Percent Auto 0.4 % (0-4); Hematocrit 35.1 % (37.0-47.0); Hemoglobin 11.4 g/dl (12.0-16.0); Imm Gran Abs Auto 0.04 X10*3/uL (0.00-0.03); Imm Gran Pct Auto 0.3 % (0.0-0.4); Lymphocytes Absolute Auto 1.7 X10*3/uL (1.2-4.9); Mean Corpuscular HGB Conc 32.5 g/dl (31.0-35.0); Mean Corpuscular Hemoglobin 30.6 pg (27.0-33.0); Mean Corpuscular Volume 94.1 fL (80.0-98.0); Mean Platelet Volume 11.3 fL (9.4-12.3); Monocytes Absolute Auto 0.8 X10*3/uL (0.1-1.2); Monocytes Percent Auto 6.3 % (2-11); Neutrophils Absolute Auto 9.5 x10*3/uL (2.0-8.3); Neutrophils Percent Auto 78.7 % (45-73); Platelet Count 240 X10*3/uL (160-400); Red Blood Count 3.73 X10*6/uL (4.20-5.50); White Blood Count 12.1 X10*3/uL (4.8-10.8)
[2023-01-23 18:23] LABS: Anion Gap 15 (12-20)
[2023-01-23 18:25] LABS: Alanine Aminotransferase 23 U/L (0-31); Albumin Level 3.9 g/dL (3.5-5.0); Alkaline Phosphatase 65 U/L (39-117); Aspartate Amino Transferase 17 U/L (5-31); Bilirubin Direct 0.2 mg/dL (0.0-0.5); Bilirubin Total 0.5 mg/dL (0.0-1.0); Blood Urea Nitrogen 10 mg/dL (9-16); Calcium 8.6 mg/dL (8.4-10.2); Carbon Dioxide 22 mmol/L (22-29); Chloride 106 mmol/L (96-108); Creatinine Clr Calc Pharmacy 131.8; Estimated Glomerular Filt Rate > 60; Glucose Random 120 mg/dL (60-115); Lipase 25 U/L (8-78); Potassium 3.5 mmol/L (3.3-5.1); Sodium 139 mmol/L (135-145); Total Protein 7.2 g/dL (6.5-8.0)
[2023-01-23 18:29] LABS: Appearance Urine Clear; Color Urine Yellow; Glucose Urine UA Negative (Negative); Leukocyte Esterase Urine Negative (Negative); Nitrite Urine Negative (Negative); Specific Gravity - Urine 1.025 (1.005-1.025); Urine Blood Negative (Negative); Urine Ketones Negative (Negative); Urine Protein Negative (Neg-Trace)
[2023-01-23 18:44] LABS: UPreg QC Valid YES; Urine Pregnancy NEGATIVE (NEGATIVE)
[2023-01-23 22:55] VITALS: BP 157/95; PULSE 72; RESP 14; O2SAT 100
--- NOTE | 2023-01-23 22:56 | ED_ITS ---
HPI - Abdominal Pain General Chief Complaint: Abdominal Pain Stated Complaint: abd and back pain Time Seen by Provider: 01/23/23 22:51 Source: patient Mode of arrival: ambulatory Limitations: no limitations History of Present Illness HPI narrative: Patient with significant past medical history noticed lower abdominal pain earlier today with no vomiting or diarrhea had LMP 01/07 no fever no chills no urinary symptom, has normal appetite Related Data Home Medications Medication Instructions Recorded Confirmed clonazepam 0.5 mg tablet 0.25 mg PO DAILY PRN 05/27/22 12/11/22 Previous Rx's Medication Instructions Recorded ibuprofen 600 mg tablet 600 mg PO Q6H PRN fever or pain 01/24/23 #30 tabs Allergies Allergy/AdvReac Type Severity Reaction Status Date / Time Sulfa (Sulfonamide Allergy Unknown SHORTNESS Verified 01/23/23 17:29 Antibiotics) OF BREATH [SULFA (SULFONAMIDE ANTIBIOTICS)] Review of Systems Review of Systems Yes all other systems are reviewed and are negative PMFSH Past Medical History Medical History delivery delivered Hernia Vomiting Surgical History H/O abdominoplasty S/P augmentation mammoplasty Family History Family History Mother No problems noted. Father No problems noted. Sister Thyroid disease Social History Social History Alcohol intake: current Alcohol intake frequency: holidays/special occasions only Alcohol type: beer Patient Tobacco Use Status: Current someday Tobacco user Smoked in Last 30 Days: No Use of substances other than those prescribed or required for medical reasons: No Advance Directives: No Advance Directives Information Provided: Yes Patient : No Physical Exam ED Vital Signs: Vital Signs - 24 hr 01/23/23 17:26 01/23/23 22:55 Temperature 97.6 F Pulse Rate 75 72 Respiratory Rate 18 14 Blood Pressure 120/81 157/95 H Pulse Oximetry 98 100 Oxygen Delivery Method Room Air BMI result Body Mass Index 29.6 Appearance: Alert. Oriented X3. No acute distress. Eyes: PERRLA, No Nystagmus ENT: Pharynx normal. Oral Mucosa moist Neck: Normal inspection. Neck supple. CVS: Normal heart rate and rhythm. Pulses normal. Respiratory: No respiratory distress. Equal air entry bilateral, no wheezing/rales/rhonchi Abdomen: Soft , mild deep tenderness suprapubic area no rebound tenderness or guarding Bowel sounds are present, no mass palpable, no CVA tenderness Skin: Skin warm and dry. Normal skin color. Normal skin turgor. Extremities: No lower extremity edema. No calf tenderness Neuro: Oriented X 3. No motor deficit. Medical Decision Making Medical Decision Making [facility] Narrative: Pelvic ultrasound showed hemorrhagic right ovarian cyst uncomplicated discharge patient home on ibuprofen Differential Diagnosis Differential Diagnoses: The differential diagnosis associated with the presentation includes UTI/ureteric stone/ovarian cysts/appendicitis Lab Data [facility] Lab Attestation statement: I reviewed the patient's lab results. 01/23/23 17:52 01/23/23 17:52 Labs: Lab Results 01/23/23 01/23/23 01/23/23 Range/Units 17:52 17:52 17:59 WBC 12.1 H (4.8-10.8) X10*3/uL RBC 3.73 L (4.20-5.50) X10*6/uL Hgb 11.4 L (12.0-16.0) g/dl Hct 35.1 L (37.0-47.0) % MCV 94.1 (80.0-98.0) fL MCH 30.6 (27.0-33.0) pg MCHC 32.5 (31.0-35.0) g/dl RDW 13.0 (11.0-16.0) % Plt Count 240 (160-400) X10*3/uL MPV 11.3 (9.4-12.3) fL Immature Gran % (Auto) 0.3 (0.0-0.4) % Neut % (Auto) 78.7 H (45-73) % Lymph % (Auto) 14.0 L (20-40) % [place]isco[place] % (Auto) 6.3 (2-11) % Eos % (Auto) 0.4 (0-4) % Baso % (Auto) 0.3 (0-2) % Lymph # (Auto) 1.7 (1.2-4.9) X10*3/uL [place] # (Auto) 0.8 (0.1-1.2) X10*3/uL Eos # (Auto) 0.1 (0.0-0.4) X10*3/uL Baso # (Auto) 0.0 (0.0-0.2) X10*3/uL Abs Immat Gran (auto) 0.04 H (0.00-0.03) X10*3/uL Absolute Neuts (auto) 9.5 H (2.0-8.3) x10*3/uL Absolute Nucleated RBC 0.000 (0.0-0.012) X10*3/uL Nucleated RBC % (auto) 0.0 (0.0-0.2) /100WBC Sodium 139 (135-145) mmol/L Potassium 3.5 D (3.3-5.1) mmol/L Chloride 106 (96-108) mmol/L Carbon Dioxide 22 (22-29) mmol/L Anion Gap 15 (12-20) BUN 10 (9-16) mg/dL Creatinine 0.65 (0.5-1.4) mg/dL Estim Creat Clear Calc 131.8 Estimated GFR > 60 Random Glucose 120 H (60-115) mg/dL Calcium 8.6 D (8.4-10.2) mg/dL Total Bilirubin 0.5 (0.0-1.0) mg/dL Direct Bilirubin 0.2 (0.0-0.5) mg/dL AST 17 (5-31) U/L ALT 23 (0-31) U/L Alkaline Phosphatase 65 (39-117) U/L Total Protein 7.2 (6.5-8.0) g/dL Albumin 3.9 (3.5-5.0) g/dL Lipase 25 (8-78) U/L Urine Color Urine Appearance Urine pH (5.0-9.0) Ur Specific Foss (1.005-1.025) Urine Protein (Neg-Trace) mg/dL Urine Glucose (UA) (Negative) mg/dL Urine Ketones (Negative) mg/dL Urine Blood (Negative) Urine Nitrite (Negative) Ur Leukocyte Esterase (Negative) Urine Test NEGATIVE (NEGATIVE) 01/23/23 Range/Units 17:59 WBC (4.8-10.8) X10*3/uL RBC (4.20-5.50) X10*6/uL Hgb (12.0-16.0) g/dl Hct (37.0-47.0) % MCV (80.0-98.0) fL MCH (27.0-33.0) pg MCHC (31.0-35.0) g/dl RDW (11.0-16.0) % Plt Count (160-400) X10*3/uL MPV (9.4-12.3) fL Immature Gran % (Auto) (0.0-0.4) % Neut % (Auto) (45-73) % Lymph % (Auto) (20-40) % [place]iscoe % (Auto) (2-11) % Eos % (Auto) (0-4) % Baso % (Auto) (0-2) % Lymph # (Auto) (1.2-4.9) X10*3/uL [place] # (Auto) (0.1-1.2) X10*3/uL Eos # (Auto) (0.0-0.4) X10*3/uL Baso # (Auto) (0.0-0.2) X10*3/uL Abs Immat Gran (auto) (0.00-0.03) X10*3/uL Absolute Neuts (auto) (2.0-8.3) x10*3/uL Absolute Nucleated RBC (0.0-0.012) X10*3/uL Nucleated RBC % (auto) (0.0-0.2) /100WBC Sodium (135-145) mmol/L Potassium (3.3-5.1) mmol/L Chloride (96-108) mmol/L Carbon Dioxide (22-29) mmol/L Anion Gap (12-20) BUN (9-16) mg/dL Creatinine (0.5-1.4) mg/dL Estim Creat Clear Calc Estimated GFR Random Glucose (60-115) mg/dL Calcium (8.4-10.2) mg/dL Total Bilirubin (0.0-1.0) mg/dL Direct Bilirubin (0.0-0.5) mg/dL AST (5-31) U/L ALT (0-31) U/L Alkaline Phosphatase (39-117) U/L Total Protein (6.5-8.0) g/dL Albumin (3.5-5.0) g/dL Lipase (8-78) U/L Urine Color Yellow Urine Appearance Clear Urine pH 6.0 (5.0-9.0) Ur Specific Foss 1.025 (1.005-1.025) Urine Protein Negative (Neg-Trace) mg/dL Urine Glucose (UA) Negative (Negative) mg/dL Urine Ketones Negative (Negative) mg/dL Urine Blood Negative (Negative) Urine Nitrite Negative (Negative) Ur Leukocyte Esterase Negative (Negative) Urine Test (NEGATIVE) Medications Administered Discontinued Medications Generic Name Dose Route Start Last Admin Trade Name Freq PRN Reason Stop Dose Admin Ibuprofen 600 mg 01/23/23 23:15 01/23/23 23:56 Ibuprofen 600 Mg Tablet PO 01/23/23 23:16 600 mg ONCE ONE Administration Discharge Plan Discharge Clinical Impression: Hemorrhagic cyst of right ovary Patient Disposition: Home, Self-Care Instructions: Ovarian Cyst (ED) Additional Instructions: Ibuprofen for pain Follow-up with vessel crew member if pain gets worse Prescriptions: New ibuprofen 600 mg tablet 600 mg PO Q6H PRN (Reason: fever or pain) Qty: 30 0RF No Action clonazepam 0.5 mg tablet 0.25 mg PO DAILY PRN Interventions: ED Discharge Assessment Last Done: 01/24/23 00:48 Discharge Date/Time: 01/24/23 00:48
--- NOTE | 2023-01-23 23:00 | PC.NURSE ---
Pt aox4 resting at the bedside in no apparent distress. Reports lower abd pain, 8/10 and drinking beer yesterday. Pending disposition.
[2023-01-23] MEDS: Ibuprofen 600 MG TABLET PO (23:56)
--- NOTE | 2023-01-23 23:57 | PC.NURSE ---
Pt medicated PO as ordered. Tolerated well.
== END 2023-01-24 00:48 | disposition home or self-care (01) ==
PROVIDERS: Nurse Practitioner Family; Emergency Provider Internal Medicine
DX: N83.201 Unspecified ovarian cyst, right side (principal); F17.200 Nicotine dependence, unspecified, uncomplicated
CPT/HCPCS: 36415; 76830; 76856; 80048; 80076; 81003; 81025; 83690; 85025; 99284

== ENCOUNTER 2023-03-05 09:38 | Outpatient (REF) | payer MEDICAID, SELFPAY ==
[2023-03-05 15:02] LABS: MANUAL DIFF FLAG NO
[2023-03-05 15:07] LABS: Basophils Percent Auto 0.4 % (0-2); Eosinophils Absolute Auto 0.2 X10*3/uL (0.0-0.4); Hematocrit 34.8 % (37.0-47.0); Hemoglobin 11.1 g/dl (12.0-16.0); Imm Gran Abs Auto 0.02 X10*3/uL (0.00-0.03); Imm Gran Pct Auto 0.3 % (0.0-0.4); Lymphocytes Absolute Auto 1.8 X10*3/uL (1.2-4.9); Lymphocytes Percent Auto 23.8 % (20-40); Mean Corpuscular HGB Conc 31.9 g/dl (31.0-35.0); Mean Corpuscular Hemoglobin 30.2 pg (27.0-33.0); Mean Corpuscular Volume 94.6 fL (80.0-98.0); Mean Platelet Volume 11.3 fL (9.4-12.3); Monocytes Absolute Auto 0.5 X10*3/uL (0.1-1.2); Monocytes Percent Auto 6.4 % (2-11); Neutrophils Absolute Auto 5.1 x10*3/uL (2.0-8.3); Neutrophils Percent Auto 67.1 % (45-73); Platelet Count 367 X10*3/uL (160-400); Red Blood Count 3.68 X10*6/uL (4.20-5.50); White Blood Count 7.5 X10*3/uL (4.8-10.8)
[2023-03-05 16:05] LABS: Alanine Aminotransferase 32 U/L (0-31); Albumin Level 3.7 g/dL (3.5-5.0); Alkaline Phosphatase 72 U/L (39-117); Anion Gap 13 (12-20); Aspartate Amino Transferase 28 U/L (5-31); Bilirubin Total 0.3 mg/dL (0.0-1.0); Blood Urea Nitrogen 9 mg/dL (9-16); Calcium 8.7 mg/dL (8.4-10.2); Carbon Dioxide 24 mmol/L (22-29); Chloride 107 mmol/L (96-108); Estimated Glomerular Filt Rate > 60; Glucose Random 107 mg/dL (60-115); Potassium 3.9 mmol/L (3.3-5.1); Sodium 140 mmol/L (135-145); Thyroid Stimulating Hormone 0.64 uIU/mL (0.32-4.0); Total Protein 7.5 g/dL (6.5-8.0)
[2023-03-05 16:44] LABS: Folate 12.4 ng/mL (> or = 4.0); Vitamin B12 379 pg/mL (200-900)
== END 2023-03-05 09:39 | disposition home or self-care (01) ==
LOC: HO.CHCLDS 09:38
PROVIDERS: Visit Provider Family Medicine
DX: R53.83 Other fatigue (principal)
CPT/HCPCS: 36415; 80053; 82607; 82746; 84443; 85025

== ENCOUNTER 2023-06-30 11:05 | Outpatient (REF) | payer MEDICAID, SELFPAY ==
[2023-07-01 08:13] LABS: ~Hepatitis C Antibody Nonreactive (Nonreactive)
[2023-07-02 09:04] LABS: RPR Rapid Plasma Reagin NON-REACTIVE (NON-REACTIVE)
[2023-07-04 17:09] LABS: HIV RNA PCR Qn Copies Not Detected Copies/mL; HIV RNA PCR Qn Log Copies Not Detected Log cps/mL
== END 2023-06-30 11:06 | disposition home or self-care (01) ==
LOC: HO.CHCLDS 11:05
PROVIDERS: Visit Provider Student in an Organized Health Care Education/Training Program
DX: N89.8 Other specified noninflammatory disorders of vagina (principal)
CPT/HCPCS: 36415; 81513; 86592; 86803; 87536; 87900

== ENCOUNTER 2023-07-27 | Outpatient (REF) | payer MEDICAID, SELFPAY ==
[2023-08-02 20:09] LABS: HPV mRNA E6/E7 rflx Not Detected (Not Detected)
== END 2023-07-27 00:01 | disposition home or self-care (01) ==
LOC: HO.HHCLNP
PROVIDERS: Visit Provider Advanced Practice Midwife
DX: Z12.4 Encounter for screening for malignant neoplasm of cervix (principal); Z11.51 Encounter for screening for human papillomavirus (HPV)
CPT/HCPCS: 87624; 88142

== ENCOUNTER 2023-09-28 10:00 | Outpatient (REF) | payer MEDICAID, SELFPAY ==
[2023-09-30 16:48] LABS: C. trachomatis RNA TMA NOT DETECTED (NOT DETECTED); N. gonorrhoeae RNA TMA NOT DETECTED (NOT DETECTED)
[2023-10-07 18:39] LABS: N. gonorrhoeae RNA TMA, Throat NOT DETECTED
== END 2023-09-28 10:01 | disposition home or self-care (01) ==
LOC: HO.HHCLNP 10:00
PROVIDERS: Visit Provider Nurse Practitioner Family
DX: N89.8 Other specified noninflammatory disorders of vagina (principal)
CPT/HCPCS: 36415; 81513; 87491; 87591

== ENCOUNTER 2023-10-05 16:24 | Outpatient (REF) | payer MEDICAID, SELFPAY ==
[2023-10-05 17:31] LABS: MANUAL DIFF FLAG NO
[2023-10-05 17:47] LABS: Basophils Absolute Auto 0.1 X10*3/uL (0.0-0.2); Basophils Percent Auto 0.5 % (0-2); Eosinophils Absolute Auto 0.2 X10*3/uL (0.0-0.4); Eosinophils Percent Auto 1.5 % (0-4); Hematocrit 36.7 % (37.0-47.0); Hemoglobin 11.5 g/dl (12.0-16.0); Imm Gran Abs Auto 0.03 X10*3/uL (0.00-0.03); Imm Gran Pct Auto 0.3 % (0.0-0.4); Lymphocytes Absolute Auto 2.2 X10*3/uL (1.2-4.9); Lymphocytes Percent Auto 22.3 % (20-40); Mean Corpuscular HGB Conc 31.3 g/dl (31.0-35.0); Mean Corpuscular Volume 95.8 fL (80.0-98.0); Mean Platelet Volume 11.6 fL (9.4-12.3); Monocytes Absolute Auto 0.7 X10*3/uL (0.1-1.2); Monocytes Percent Auto 7.4 % (2-11); Neutrophils Absolute Auto 6.7 x10*3/uL (2.0-8.3); Platelet Count 256 X10*3/uL (160-400); Red Blood Count 3.83 X10*6/uL (4.20-5.50); Red Cell Distribution Width 13.1 % (11.0-16.0); White Blood Count 9.8 X10*3/uL (4.8-10.8)
[2023-10-05 18:14] LABS: Monotest Negative (Negative)
[2023-10-05 18:36] LABS: TSH reflex Free T4 0.56 uIU/mL (0.32-4.0)
[2023-10-06 08:16] LABS: HIV AB/AG Nonreactive (Nonreactive); HIV Num 1 0.05 S/CO (0.00-0.99)
== END 2023-10-05 16:25 | disposition home or self-care (01) ==
LOC: HO.CHCLDS 16:24
PROVIDERS: Visit Provider Internal Medicine
DX: Z11.4 Encounter for screening for human immunodeficiency virus [HIV] (principal); J02.9 Acute pharyngitis, unspecified; R53.83 Other fatigue
CPT/HCPCS: 36415; 84443; 85025; 86308; 87389

== ENCOUNTER 2023-10-06 16:01 | Outpatient (REF) | payer MEDICAID, SELFPAY ==
[2023-10-06 18:07] LABS: Immature Retic Fraction 15.2 % (3.0-15.9); Reticulocyte Percent 1.7 % (0.5-1.8); Reticulocytes Absolute 0.065 X10*6/uL (0.026-0.095)
[2023-10-06 18:36] LABS: Iron 43 mcg/dL (30-160); Percent Iron Saturation 12 % (15-50); Total Iron Binding Capacity 354 mcg/dL (228-428); Unsaturated Iron Binding 311 ug/dL
[2023-10-06 18:48] LABS: Ferritin 41 ng/mL (10-122)
== END 2023-10-06 16:02 | disposition home or self-care (01) ==
LOC: HO.CHCLDS 16:01
PROVIDERS: Visit Provider Internal Medicine
DX: D50.0 Iron deficiency anemia secondary to blood loss (chronic) (principal)
CPT/HCPCS: 36415; 82728; 83540; 85045

== ENCOUNTER 2024-01-12 10:30 | Outpatient (REF) | payer MEDICAID, SELFPAY ==
[2024-01-12 14:42] LABS: MANUAL DIFF FLAG NO
[2024-01-12 14:52] LABS: Basophils Absolute Auto 0.1 X10*3/uL (0.0-0.2); Basophils Percent Auto 0.8 % (0-2); Eosinophils Absolute Auto 0.3 X10*3/uL (0.0-0.4); Eosinophils Percent Auto 3.9 % (0-4); Hematocrit 37.7 % (37.0-47.0); Hemoglobin 12.2 g/dl (12.0-16.0); Imm Gran Abs Auto 0.02 X10*3/uL (0.00-0.03); Imm Gran Pct Auto 0.3 % (0.0-0.4); Lymphocytes Absolute Auto 1.9 X10*3/uL (1.2-4.9); Lymphocytes Percent Auto 26.8 % (20-40); Mean Corpuscular HGB Conc 32.4 g/dl (31.0-35.0); Mean Corpuscular Hemoglobin 30.2 pg (27.0-33.0); Mean Corpuscular Volume 93.3 fL (80.0-98.0); Monocytes Absolute Auto 0.6 X10*3/uL (0.1-1.2); Monocytes Percent Auto 8.5 % (2-11); Neutrophils Absolute Auto 4.3 x10*3/uL (2.0-8.3); Neutrophils Percent Auto 59.7 % (45-73); Platelet Count 225 X10*3/uL (160-400); Red Blood Count 4.04 X10*6/uL (4.20-5.50); White Blood Count 7.2 X10*3/uL (4.8-10.8)
[2024-01-12 15:10] LABS: Anion Gap 15 (12-20); Blood Urea Nitrogen 13 mg/dL (9-16); Carbon Dioxide 22 mmol/L (22-29); Chloride 104 mmol/L (96-108); Estimated Glomerular Filt Rate > 60; Glucose Random 104 mg/dL (60-115); Potassium 3.7 mmol/L (3.3-5.1); Sodium 137 mmol/L (135-145)
== END 2024-01-12 10:31 | disposition home or self-care (01) ==
LOC: HO.CHCLDS 10:30
PROVIDERS: Visit Provider Internal Medicine
DX: R42 Dizziness and giddiness (principal); I10 Essential (primary) hypertension; R53.83 Other fatigue; T50.905A Adverse effect of unspecified drugs, medicaments and biological substances, initial encounter; X58.XXXA Exposure to other specified factors, initial encounter; Y93.9 Activity, unspecified; Y92.9 Unspecified place or not applicable; Y99.9 Unspecified external cause status
CPT/HCPCS: 36415; 80048; 84443; 85025

== ENCOUNTER 2024-02-08 13:04 | Outpatient (REF) | payer MEDICAID, SELFPAY ==
[2024-02-21 17:09] LABS: Anti-Mullerian Hormone-Female 0.86 ng/mL (0.18-5.68)
== END 2024-02-08 13:05 | disposition home or self-care (01) ==
LOC: HO.CHCLDS 13:04
PROVIDERS: Visit Provider Pediatrics
DX: Z31.9 Encounter for procreative management, unspecified (principal)
CPT/HCPCS: 36415; 82166

== ENCOUNTER 2024-04-17 11:48 | Outpatient (REF) | payer MEDICAID, SELFPAY ==
[2024-04-18 10:52] LABS: Bacterial Vaginosis PCR POSITIVE (Negative); Candida Group PCR NOT DETECTED (Not Detect); Candida glab krusei PCR NOT DETECTED (Not Detect); Trichomonas vaginalis PCR NOT DETECTED (Not Detect)
[2024-04-20 22:29] LABS: Anti-Mullerian Hormone-Female 1.44 ng/mL (0.18-5.68)
== END 2024-04-17 11:49 | disposition home or self-care (01) ==
LOC: HO.HHCL 11:48
PROVIDERS: Visit Provider Advanced Practice Midwife
DX: Z31.89 Encounter for other procreative management (principal); N89.8 Other specified noninflammatory disorders of vagina
CPT/HCPCS: 0352U; 36415; 82166

== ENCOUNTER 2024-05-15 11:47 | Outpatient (REF) | payer MEDICAID, SELFPAY ==
[2024-05-16 15:38] LABS: Bacterial Vaginosis PCR NEGATIVE (Negative); Candida Group PCR DETECTED (Not Detect); Candida glab krusei PCR NOT DETECTED (Not Detect); Trichomonas vaginalis PCR NOT DETECTED (Not Detect)
[2024-05-16 16:11] LABS: CT PCR NOT DETECTED (Not Detect.); NG PCR NOT DETECTED (Not Detect.)
== END 2024-05-15 11:48 | disposition home or self-care (01) ==
LOC: HO.HHCLNP 11:47
PROVIDERS: Visit Provider Internal Medicine
DX: N76.0 Acute vaginitis (principal)
CPT/HCPCS: 0352U; 87491; 87591

== ENCOUNTER 2024-06-19 12:55 | Emergency (ER) | payer MEDICAID, SELFPAY ==
--- NOTE | ~2024-06-19 | MR_ITS ---
CLINICAL HISTORY: Papilledema MR of the brain was performed before and after contrast administration. No comparison. Findings: There is no hydrocephalus. There are mild nonspecific white matter lesions. No abnormal extra-axial collections are identified. No masses are seen and there is no mass effect. No acute infarct is identified. No abnormally enhancing lesions are identified. Impression: No acute intracranial abnormality is identified. There are mild nonspecific white matter lesions. Etiology and significance uncertain therefore consider comparison to previous or follow-up to assess for stability. This document has been electronically signed by: Darrell Clifton MD on 06/19/2024 18:22:59
--- NOTE | ~2024-06-19 | MR_ITS ---
CLINICAL HISTORY: Papilledema MR of the orbits was performed before and after contrast administration. No comparison. Findings: There is mild artifact. The globes are unremarkable. No retro-orbital mass is identified. No abnormality of the extraocular muscles or lacrimal glands is identified. An empty sella is incidentally noted. No suprasellar mass is identified. The optic nerves are unremarkable demonstrating no abnormal enhancement. In the left parotid there is a 10 mm nodular area likely an intraparotid lymph node. Impression: Unremarkable MR of the orbits. Specifically slight prominence of the CSF adjacent to the optic nerve likely within normal limits. This document has been electronically signed by: Darrell Clifton MD on 06/19/2024 18:33:39
[2024-06-19 13:15] VITALS: BP 157/94; PULSE 85; RESP 16; TEMP 36.6; O2SAT 98; BMI 31.6
--- NOTE | 2024-06-19 13:25 | ED_ITS ---
HPI - General Adult General Chief complaint: Eye Problems Stated complaint: R/O Elevated ICP Papilledema Suspect Time Seen by Provider: 06/19/24 19:09 Source: patient Limitations: no limitations History of Present Illness ED Provider: Daria Vieira PA-C HPI narrative: 38-year-old female with a history of ascending aorta dilation, presents given need for MRI. Patient states she she was seen by her rim fire priming tool setter today secondary to blurred vision, she had dilated funduscopic exam and was referred to the ED for an urgent MRI of the brain as well as the orbits with and without contrast to rule out papilledema/increased intracranial pressure. Related Data Home Medications ?Medication ?Instructions ?Recorded ?Confirmed clonazepam 0.5 mg tablet 0.25 mg PO DAILY PRN 05/27/22 12/11/22 Previous Rx's ?Medication ?Instructions ?Recorded ibuprofen 600 mg tablet 600 mg PO Q6H PRN fever or pain 01/24/23 #30 tabs Allergies Allergy/AdvReac Type Severity Reaction Status Date / Time Sulfa (Sulfonamide Allergy Unknown SHORTNESS Verified 06/19/24 13:15 Antibiotics) OF BREATH [SULFA (SULFONAMIDE ANTIBIOTICS)] Review of Systems 2 Review of Systems: Yes all other systems are reviewed and are negative Constitutional: Constitutional: Denies fatigue, Denies fever(s) and Denies headache(s) Eyes: Eyes: Reports blurry vision ENT: Denies dizziness and Denies headache(s) Cardiovascular: Cardiovascular: Denies chest pain and Denies dyspnea Respiratory: Respiratory: Denies dyspnea Gastrointestinal: Gastrointestinal: Denies abdominal pain and Denies nausea Neurologic: Denies dizziness and Denies headache(s) Endocrine: Endocrine: Denies fatigue [facility] Past Medical History Attestation statement: The following information was validated with the patient. Medical History delivery delivered Hernia Vomiting Surgical History H/O abdominoplasty S/P augmentation mammoplasty Family History Family History Mother No problems noted. Father No problems noted. Sister Thyroid disease Social History Social History (System 07/07/23 @ 13:23 by Yancy Monroy) Alcohol intake: current Alcohol intake frequency: holidays/special occasions only Alcohol type: beer Patient Tobacco Use Status: Current someday Tobacco user Advance Directives: No Advance Directives Information Provided: No Do you have a plan to hurt others: No Plan Physical Exam ED Vital Signs: Vital Signs - 24 hr 06/19/24 13:15 06/19/24 19:54 Temperature 97.9 F 98.4 F Pulse Rate 85 80 Respiratory Rate 16 16 Blood Pressure 157/94 H 164/95 H Pulse Oximetry 98 100 Oxygen Delivery Method Room Air Room Air BMI result Body Mass Index 31.6 Const Other: Alert, well-appearing Orientation/consciousness: patient oriented x3 Resp Effort & Inspection: normal respiratory effort Cardio Other: Normal peripheral perfusion Skin Other: Warm dry no rash Neuro General: patient oriented x3, no focal motor deficits and CN's II-XI intact bilaterally Psych Other: Cooperative Course Course Course Narrative: RME, this is a rapid medical exam performed by Dinesh Watson please refer to primary provider for complete H&P- patient was sent from her rim fire priming tool setter where she was evaluated prior to coming to the ER today. She had a dilated funduscopic exam and was referred to the ED for an urgent MRI of the brain as well as the orbits with and without contrast to rule out papilledema/increased intracranial pressure. Medications Administered Discontinued Medications Generic Name Dose Route Start Last Admin Trade Name Freq PRN Reason Stop Dose Admin Gadobutrol 10 ml 06/19/24 17:47 06/19/24 17:48 Gadobutrol 10 Ml Vial IVPUSH 06/19/24 17:48 9 ml ONCE ONE Administration Medical Decision Making Medical Decision Making [facility] Narrative: 38-year-old female with a history of ascending aorta dilation, presents given need for MRI. Patient states she she was seen by her rim fire priming tool setter today secondary to blurred vision, she had dilated funduscopic exam and was referred to the ED for an urgent MRI of the brain as well as the orbits with and without contrast to rule out papilledema/increased intracranial pressure. Problem: Abnormal findings on funduscopic exam History: Per patient I have considered the following differential diagnoses: Need to rule out increased intracranial pressure Plan: Patient is seen from triage, MRIs were ordered I have independently reviewed the following tests: MRI orbits: mpression: Unremarkable MR of the orbits. Specifically slight prominence of the CSF adjacent to the optic nerve likely within normal limits. This document has been electronically signed by: Darrell Clifton MD on 06/19/2024 18:33:39 MRI brain:Impression: No acute intracranial abnormality is identified. There are mild nonspecific white matter lesions. Etiology and significance uncertain therefore consider comparison to previous or follow-up to assess for stability. This document has been electronically signed by: Darrell Clifton MD on 06/19/2024 18:22:59 Lab Data 06/19/24 15:18 06/19/24 15:18 Labs: Lab Results 06/19/24 Range/Units 15:18 WBC 6.7 (4.8-10.8) X10*3/uL RBC 3.95 L (4.20-5.50) X10*6/uL Hgb 11.8 L (12.0-16.0) g/dl Hct 36.6 L (37.0-47.0) % MCV 92.7 (80.0-98.0) fL MCH 29.9 (27.0-33.0) pg MCHC 32.2 (31.0-35.0) g/dl RDW 13.7 (11.0-16.0) % Plt Count 221 (160-400) X10*3/uL MPV 11.0 (9.4-12.3) fL Immature Gran % (Auto) 0.3 (0.0-0.4) % Neut % (Auto) 58.4 (45-73) % Lymph % (Auto) 31.9 (20-40) % [place] % (Auto) 6.8 (2-11) % Eos % (Auto) 2.0 (0-4) % Baso % (Auto) 0.6 (0-2) % Lymph # (Auto) 2.1 (1.2-4.9) X10*3/uL [place] # (Auto) 0.5 (0.1-1.2) X10*3/uL Eos # (Auto) 0.1 (0.0-0.4) X10*3/uL Baso # (Auto) 0.0 (0.0-0.2) X10*3/uL Abs Immat Gran (auto) 0.02 (0.00-0.03) X10*3/uL Absolute Neuts (auto) 3.9 (2.0-8.3) x10*3/uL Absolute Nucleated RBC 0.000 (0.0-0.012) X10*3/uL Nucleated RBC % (auto) 0.0 (0.0-0.2) /100WBC Sodium 140 (135-145) mmol/L Potassium 3.8 (3.3-5.1) mmol/L Chloride 107 (96-108) mmol/L Carbon Dioxide 27 (22-29) mmol/L Anion Gap 10 L (12-20) BUN 10 (9-16) mg/dL Creatinine 0.66 (0.5-1.4) mg/dL Estim Creat Clear Calc 132.9 Estimated GFR > 60 Random Glucose 109 (60-115) mg/dL Calcium 8.7 (8.4-10.2) mg/dL Discharge Plan Discharge Clinical Impression: Blurred vision Patient Disposition: Home, Self-Care Additional Instructions: The MRIs of your brain and orbits were normal. You can continue to follow up with your rim fire priming tool setter for further assessment in regard to your eye related complaints. They may refer you to an delivery driver assistant. Prescriptions: No Action ibuprofen 600 mg tablet 600 mg PO Q6H PRN (Reason: fever or pain) Qty: 30 0RF clonazepam 0.5 mg tablet 0.25 mg PO DAILY PRN Print Language: Congolese
[2024-06-19 15:21] LABS: MANUAL DIFF FLAG NO
[2024-06-19 15:23] LABS: Basophils Percent Auto 0.6 % (0-2); Eosinophils Absolute Auto 0.1 X10*3/uL (0.0-0.4); Hematocrit 36.6 % (37.0-47.0); Hemoglobin 11.8 g/dl (12.0-16.0); Imm Gran Abs Auto 0.02 X10*3/uL (0.00-0.03); Imm Gran Pct Auto 0.3 % (0.0-0.4); Lymphocytes Absolute Auto 2.1 X10*3/uL (1.2-4.9); Lymphocytes Percent Auto 31.9 % (20-40); Mean Corpuscular HGB Conc 32.2 g/dl (31.0-35.0); Mean Corpuscular Hemoglobin 29.9 pg (27.0-33.0); Mean Corpuscular Volume 92.7 fL (80.0-98.0); Monocytes Absolute Auto 0.5 X10*3/uL (0.1-1.2); Monocytes Percent Auto 6.8 % (2-11); Neutrophils Absolute Auto 3.9 x10*3/uL (2.0-8.3); Neutrophils Percent Auto 58.4 % (45-73); Platelet Count 221 X10*3/uL (160-400); Red Blood Count 3.95 X10*6/uL (4.20-5.50); Red Cell Distribution Width 13.7 % (11.0-16.0); White Blood Count 6.7 X10*3/uL (4.8-10.8)
[2024-06-19 15:34] LABS: Anion Gap 10 (12-20); Blood Urea Nitrogen 10 mg/dL (9-16); Calcium 8.7 mg/dL (8.4-10.2); Carbon Dioxide 27 mmol/L (22-29); Chloride 107 mmol/L (96-108); Creatinine Clr Calc Pharmacy 132.9; Estimated Glomerular Filt Rate > 60; Glucose Random 109 mg/dL (60-115); Potassium 3.8 mmol/L (3.3-5.1); Sodium 140 mmol/L (135-145)
[2024-06-19] MEDS: gadobutroL 10 ML VIAL IVPUSH (17:48)
[2024-06-19 19:54] VITALS: BP 164/95; PULSE 80; RESP 16; TEMP 36.9; O2SAT 100
[2024-06-19 21:00] VITALS: BP 164/95; PULSE 80; RESP 16; TEMP 36.9; O2SAT 100
== END 2024-06-19 21:02 | disposition home or self-care (01) ==
PROVIDERS: Physician Assistant; Emergency Provider Emergency Medicine; PCP Pediatrics
DX: H53.8 Other visual disturbances (principal)
CPT/HCPCS: 36415; 70543; 70553; 80048; 85025; 96374; 99283; 99285; A9585

== ENCOUNTER → 2024-06-19 13:25 | Outpatient (BNV) | payer MEDICAID, SELFPAY | PROVIDERS: PCP Pediatrics; Visit Provider Radiology Diagnostic Radiology | DX: H47.10 Unspecified papilledema (principal) | CPT/HCPCS: 70543; 70553 ==

== ENCOUNTER 2024-08-01 11:15 | Outpatient (REF) | payer MEDICAID, SELFPAY ==
--- OUTSIDE RECORDS SUMMARY | 2024-08-01 12:50 | XMS_ITS | Encounter Summary ---
Author Organization [employer] Address [address] [place] [address] 7[address] [place] [address] Care Team Providers Care Bobbin Hauler Name Role Phone Arpita Edmonds MD Primary Care Provider [phone] Encounter Details Date Type Department Care Team ([facility] st Contact Info) Description 05/16/2024 Orders Only [facility] MED & PEDS [address] [place] [address] Oz Ballesteros MD [address] [place] [address] Candidiasis of female genitalia (Primary Dx) Social History Tobacco Use Types Packs/Day Years Used Date Smoking Tobacco: Some Days Cigarettes 0.3 4 Passive Smoke Exposure: Never Smokeless Tobacco: Never Comments:Smokes cigarettes o nly when she drinks ocassional Alcohol Use Standard Drinks/Week Comments Not Currently 0 (1 standard drink = 0.6 oz pur e alcohol) Alcohol Answer Date Recorded How often do you have a drink containing alcohol ? 1 06/03/2022 How many drinks containing a lcohol do you have on a typical day when you are drinking? 1 06/03/2022 How often do you have six or more drinks on one occasion? 0 06/03/2022 Depression Answer Date Recorded Patient Health Questionnaire-9 Score 2 06/03/2022 Housing Stability Answer Date Recorded What is your housing situation today? I have alberto clarke 04/05/[address] you li ve. Do you have problems with any of the following? None of the above 04/05/2023 Food Insecurity Answer Date Recorded Within the past 12 months, y ou worried that your food would run out before you got money to buy more: Never True 04/05/2023 Within the past 12 months,th e food you bought just didn't last and you didn't have enough money to get more: Never True Transportation Answer Date Recorded In the past 12 months, has l ack of transportation kept you from medical appts, meetings, work or from getting things needed for daily living? No 04/05/2023 Utilities Answer Date Recorded In the past 12 months, has t he electric, gas, oil or water company threatened to shut off services in your home? No 11/02/2023 Depression Answer Date Recorded Patient Health Questionnaire-2 Score 0 06/03/2022 Comments No Sex and Gender Information Value Date Recorded Sex Assigned at Female 04/20/2022 10:32 AM EDT Legal Sex Female 10:32 AM EDT Gender Identity Female 04/20/2022 10:32 AM EDT Sexual Orientation Choose not to disclose 2021 10:32 AM EDT documented as of this encounter Plan of Treatment Upcoming Encounters Date Type Department Care Team (Late st Contact Info) Description 08/01/2024 2:15 PM EST Office Visit [facility] OPTOMETRY [address] [place] [address] Arrived documented as of this encounter Visit Diagnoses Diagnosis Candidiasis of female genitalia- Primary Candidiasis of vulva and vagina documented in this encounter Additional Health Concerns Assessment Noted Time PHQ-9 Depression Total Score: 2 06/03/20 22 10:05 AM EST documented as of this encounter Care Teams Bobbin Hauler Relationship Specialty Start Date End Date Arpita Edmonds MD [address] [place] [address] PCP - General Family Medicine 01/28/18 documented as of this encounter
--- OUTSIDE RECORDS SUMMARY | 2024-08-01 12:50 | XMS_ITS | Encounter Summary ---
Author Organization [employer] Address [address] [facility] 7 [place] [address] Care Team Providers Care Mechanical Reliability Engineer Name Role Phone Arpita Edmonds MD Primary Care Provider [phone] Reason for Visit * Reason Onset Date Comments Med Refill 10/12/2023 Encounter Details Date Type Department Care Team ([facility] st Contact Info) Description 10/12/2023 Telephone [facility] MEDICINE [address] [place] [address] Arpita Edmonds MD [address] [place], [place] [phone] Med Refill Social History Tobacco Use Types Packs/Day Years [...] to shut off services in your home? Yes 03/29/2023 Depression Answer Date Recorded Patient Health Questionnaire-2 Score 0 06/03/2022 Comments No Sex and Gender Information Value Date Recorded Sex Assigned at Female 04/20/2022 10:32 AM EDT Legal Sex Female 10:32 AM EDT Gender Identity Female 04/20/2022 10:32 AM EDT Sexual Orientation Choose not to disclose 2021 10:32 AM EDT documented as of this encounter Miscellaneous Notes * Telephone Encounter - Jelly Murphy RN - 10/15/2023 8:56 AM EDT Images from the original note were not included. RN called pt x3- no answer, LVM on # [phone]- all other listed numbers not in service. Please send a letter for pt to call [facility] Nurses. Thank you Second call attempted to Patient at [phone], number is not in service. Call to [facility], [place] is still not picked up. Pharmacist reports the numbers she has on fileare [phone] and [phone]. Calls attempted to number provided. A voicemail requestng call back leftat [phone] and [phone] is not in service. Brandee Bhakta, MARINE UNDERWRITER P [facility] Nurses Please call and let her know her results show she is + for BV. This is not sexually transmitted so her partner doesn't need treatment. I have already sent/will send metronidazole to her pharmacy. Sheshould complete medication as prescribed and schedule follow-up if symptoms persist/recur. She is not to drink etoh when taking this med and for 24 hours after. She should avoid douching, as well as scented bath or body products. She should wash her vulva with water only. Abstain from sex during treatment. The medication may take a few days to be effective, but if she is having continued vaginal discharge, itching, or other symptoms after one week, please have her return to care. All other tests on sureab, including trich, pamela, CT, NG have come back negative. Thanks! * Telephone Encounter - Cindy Toribio LPN - 10/12/2023 1:26 PM EDT The com writer contacted Nurse Light Bulb Replacer Kaykay to inquire about the feasibility of the request. It was confirmed that medication can't be sent to [place] under the [employer] insurance. Subsequently, thewriter informed the patient of this update. The patient mentioned being currently in [place] and will wait for the medication until their return. * Telephone Encounter - Mahi Hand - 10/12/2023 11:57 AM EDT Tc from pt requesting the resend of medication to [id number] - [place], [place] - [address] AT [facility] due to currently traveling. documented in this encounter Plan of Treatment Upcoming Encounters Date Type Department Care Team (Late st Contact Info) Description 08/01/2024 2:15 PM EST Office Visit [facility] OPTOMETRY [address] [place] [address] Arrived documented as of this encounter Visit Diagnoses Not on filedocumented in this encounter Additional Health Concerns Assessment Noted Time PHQ-9 Depression Total Score: 2 06/03/20 22 10:05 AM EST documented as of this encounter Care Teams Mechanical Reliability Engineer Relationship Specialty Start Date End Date Arpita Edmonds MD [address] [place] [address] PCP - General Family Medicine 01/28/18 documented as of this encounter
--- OUTSIDE RECORDS SUMMARY | 2024-08-01 12:50 | XMS_ITS | Encounter Summary ---
Author Organization [employer] Address [address] [facility] 7t [place] [address] Care Team Providers Care Reel Assembler Name Role Phone Arpita Edmonds MD Primary Care Provider [phone] Encounter Details Date Type Department Care Team ([facility] st Contact Info) Description 10/05/2023 Orders Only [facility] CHC MED & PEDS [address] [place] [address] Oz Ballesteros MD [address] [place] [address] Influenza-like symptoms Social History Tobacco Use Types Packs/Day Years [...] Description 08/01/2024 2:15 PM EST Office Visit [facility] OPTOMETRY [address] [place] [address] Arrived documented as of this encounter Visit Diagnoses Diagnosis Influenza-like symptoms Other general symptoms documented in this encounter Additional Health Concerns Assessment Noted Time PHQ-9 Depression Total Score: 2 06/03/20 22 10:05 AM EST documented as of this encounter Care Teams Reel Assembler Relationship Specialty Start Date End Date Arpita Edmonds MD [address] [place] [address] PCP - General Family Medicine 01/28/18 documented as of this encounter
--- OUTSIDE RECORDS SUMMARY | 2024-08-01 12:50 | XMS_ITS | Encounter Summary ---
Author Organization [employer] Address [address] [place] [address] 7 [place] [address] Care Team Providers Care Meteorological Equipment Repairer Name Role Phone Arpita Edmonds MD Primary Care Provider [phone] Encounter Details Date Type Department Care Team (Latest Contact Info) Description 09/02/2021 Abstract [facility] CONVERSIONS Dental, Provider, DDS Social History Tobacco Use Types Packs/Day Years Used Date Smoking Tobacco: Never Assessed Comments Unknown Sex and Gender Information Value Date Recorded [...] Description 08/01/2024 2:15 PM EST Office Visit [facility] OPTOMETRY [address] [place] [address] Arrived documented as of this encounter Visit Diagnoses Not on filedocumented in this encounter Care Teams Meteorological Equipment Repairer Relationship Specialty Start Date End Date Arpita Edmonds MD [address] [place] [address] PCP - General Family Medicine 01/28/18 documented as of this encounter
--- OUTSIDE RECORDS SUMMARY | 2024-08-01 12:50 | XMS_ITS | Clinical Summary ---
Author Organization [employer] Address [address] [place] [address] [address] [place] [address] Care Team Providers Care Web Operations Manager Name Role Phone Arpita Edmonds MD Primary Care Provider [phone] Allergies Active Allergy Reactions Criticality Noted Date Comments Sulfa Antibiotics Palpitations High 05/25/2017 Medications acetaminophen (Tylenol) 500 MG tablet Take 2 tablets by mouth in the morning and 2 tablets at noon and 2 tablets in the evening and 2 tablets before bedtime. 12/12/19 22 Active ergocalciferol (Vitamin D-2) 1.25 MG (06082 UT) capsule Take 1 capsule by mouth once a week. 11/13/19 22 Active HPV 9-valent (Gardasil 9) suspension prefilled syringe vaccine prefilled syringe apply IM as scheduled 01/28/20 22 Active loratadine (Claritin) 10 MG tablet Take 1 tablet by mouth if needed each day. 09/23/19 22 Active fluticasone (Flonase) 50 MCG/ACT nasal sprayIndication s:Influenza-lik e symptoms Administer 1 spray into each nostril in the morning. Shake gently. Before first use, prime pump. After use, clean tip and replace cap. 48 mL 1 08/06/19 23 Active ascorbic acid (Vitamin C) 250 MG tablet Take 2 tablets (500 mg) by mouth in the morning. 90 tablet 1 11/06/19 23 Active cholecalciferol (Vitamin D-3) 50 MCG (2000 UT) capsuleIndicati ons:Iron deficiency anemia due to chronic blood loss Take 1 capsule (50 mcg) by mouth in the morning. 90 capsule 3 11/06/19 23 Active Additional Information Patient not taking.Reported on 03/26/2023 Diclofenac Sodium 1 % gelIndications: Right wrist pain To apply to the affected area 3 times a day 100 g 11/24/19 23 Active Blood Pressure Monitor kit 1 Device in the morning. 1 kit 03/26/20 Active hydrocortisone 2.5 % cream Apply pea sized amount to skin bid for 1 week 15 g 09/28/19 24 Active Spacer/Aero-Hol ding Chambers (OptiChamber Marita) miscIndications :Influenza-like symptoms 1 each every 4 (four) hours if needed (asthma). 1 each 10/05/19 24 Active prazosin (Minipress) 2 MG capsule TAKE TWO CAPSULES EVERY NIGHT AT BEDTIME NEEDED 10/25/19 24 Active Blood Pressure kitIndications: Elevated blood pressure reading Check BP daily 1 kit 12/07/19 24 Active petrolatum hydrophilic-tony e vera (Aloe Blanchard) ointmentIndicat ions:Skin rash Apply topically if needed in the morning and at bedtime for wound care. 56 g 01/11/20 24 2024 Active verapamil SR (Calan SR) 120 MG ER tabletIndicatio ns:Primary hypertension Take 1 tablet (120 mg) by mouth at bedtime. Do not crush or chew. 30 tablet 11 02/07/20 24 2024 Active clonazePAM (KlonoPIN) 0.5 MG tablet Take 1 tablet (0.5 mg) by mouth 2 times daily. 20 tablet 03/03/20 24 Active hydrOXYzine pamoate (Vistaril) 25 MG capsule TAKE ONE CAPSULE EVERY 6 HOURS NEEDED FOR ANXIETY 30 capsule 3 05/08/20 24 Active ipratropium (Atrovent) 0.06 % nasal sprayIndication s:Respiratory infection 2 sprays each nostril bid prn rhinorrhea, tunisian 15 mL 05/09/20 24 Active Ventolin HFA 108 (90 Base) MCG/ACT inhalerIndicati ons:Influenza-l axel symptoms INHALE TWO PUFFS EVERY 4 HOURS NEEDED FOR WHEEZING OR SHORTNESS OF BREATH 18 g 1 05/16/20 24 Active ibuprofen 800 MG tabletIndicatio ns:Cervical paraspinal muscle spasm Take 1 tablet (800 mg) by mouth every 8 (eight) hours if needed for moderate pain. 24 tablet 1 06/28/19 25 Active Vit-Fe Fumarate-FA ( Vitamin) 27-0.8 MG tablet Take 1 tab orally daily 30 tablet 11 08/01/19 Active ferrous sulfate (FerrouSul) 325 (65 Fe) MG tablet TAKE 1 TABLET BY ORAL ROUTE 2 TIMES EVERY DAY 60 tablet 2 11/10/19 23 2024 Discontinued(T herapy completed) Vit-Fe Fumarate-FA ( Vitamin) 27-0.8 MG tablet Take 1 tab orally daily 30 tablet 11 11/10/192024 Discontinued(R eorder (will not trigger notification to Pharmacy)) ferrous gluconate (Fergon) 324 (37.5 Fe) MG tabletIndicatio ns:Other fatigue TAKE ONE TABLET DAILY WITH BREAKFAST 90 tablet 1 03/30/202024 Discontinued(T herapy completed) cyclobenzaprine (Flexeril) 5 MG tabletIndicatio ns:Cervical paraspinal muscle spasm Take 1 tablet (5 mg) by mouth if needed at bedtime for muscle spasms for up to 10 days. 10 tablet 06/28/19 25 2024 dextromethorpha n-guaiFENesin (Tussin DM) 10-100 MG/5ML liquidIndicatio ns:Viral URI Take 5 mL by mouth every 4 (four) hours if needed for cough for up to 10 days. 180 mL 06/30/19 25 2024 acetaminophen (Tylenol Extra Strength) 500 MG tabletIndicatio ns:Viral URI Take 1 tablet (500 mg) by mouth every 6 (six) hours if needed for mild pain for up to 10 days. 30 tablet 06/30/19 25 2024 Active Problems Problem Noted Date Diagnosed Date Acute frontal sinusitis 05/09/2024 Assessment & Plan (05/09/2024 11:22 AM EST): -No evidence of respiratory distress. Symptoms mild. -No evidence of dehydration. - Prescribed ipratropium (Atrovent) 0.06 % nasal spray 05/09/24 -Supportive care advised. -Isolation recommendations discussed. -ER precautions discussed. -Seek medical attention for worsening symptoms. Anxiety 09/22/2023 Respiratory infection 03/29/2023 Assessment & Plan (03/29/2023 10:23 AM EDT): Sx were consistent w likely viral syndrome. MA performed strep test for sore throat that came back pos, and I requested a repeat test to confirm that came back pos. Pt tested neg for strep throat in 12/2022, so seems unlikely it is just colonization. -tx w amoxicillin BID for 7 d. -benzonate -ocean nasal spray Elevated blood pressure reading 03/29/2023 Assessment & Plan (02/11/2024 9:39 AM EDT): Patient has been 5 days off medication treatment, her bp have been running in the upper 110's to 120' and dyastolic in upper 70's to 80, discussed low sodium diet, keep a good blood pressure diary, follow up with pcp in 6 weeks Assessment & Plan (03/29/2023 10:24 AM EDT): Repeated manual BP check 128/90 -Prescribed BP machine to monitor at home and advised to bring readings to PCP at next apt. Fatigue 03/04/2023 Assessment & Plan (03/04/2023 10:57 AM EDT): Patient was examined at the time of visit on affected area for infections with no abnormal findings. Advised patient to use gauzes instead of adhesive tape. Will be send for labs. Chest discomfort 01/06/2023 Assessment & Plan (01/06/2023 10:16 AM EDT): Atypical for cardiac. Likely viral gastroenteritis mild vs social stressors vs GERD symptoms -EKG ordered for reassurance. -recommend rest and increase fluids. -return if symptoms worsen or do not improve. Jaw pain 06/02/2022 Left ear pain 06/02/2022 Nasal congestion 06/02/2022 Vaginal discharge 06/02/2022 Abnormal cervical Papanicolaou smear 01/20/2022 Mood disorder 04/01/2018 Comments Yes Resolved Problems Problem Noted Date Diagnosed Date Resolved Date Benzodiazepine dependence 04/01/2018 Encounters Date Type Department Care Team Description 08/01/2024 11:15 AM EST Office Visit [facility] [address] [place] [address] Kimberlee Khoury CNM Less than 8 weeks gestation of (Primary Dx) 08/01/2024 Travel 07/31/[address] [address] Ольга Fagan, RN Record Request 07/25/2024 Travel 07/24/2024 Telephone [facility] [address] [place] [address] Arpita Edmonds MD Appointment Request 07/19/2024 Telephone [facility] [address] [place] [address] Arpita Edmonds MD 07/04/2024 1:45 PM EST Office Visit [facility] [address] [place] [address] TarkaMaricarmen, OD Optic papillitis of both eyes (Primary Dx) 07/04/2024 Travel 06/30/2024 2:20 PM EST Office Visit [facility] [address] [place] [address] Oz Ballesteros MD Viral URI (Primary Dx) 06/30/2024 Travel 06/30/[address] [address] Arpita Edmonds MD Nurse Triage 06/28/2024 10:40 AM EST Office Visit [facility] [address] [place] [address] Justine Martínez MD Cervical paraspinal muscle spasm (Primary Dx); 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/28/2024 Travel 06/27/2024 Telephone [facility] [address] [place] [address] Arpita Edmonds MD Nurse Triage 06/26/2024 Telephone [facility] [address] [place] [address] Nj Ospina MD 06/26/2024 Refill [facility] [address] [place] [address] Arpita Edmonds MD 06/26/2024 Orders Only [facility] W[facility] [address] [address] Nj Ospina MD Abnormal finding on MRI of brain (Primary Dx) 06/20/2024 Orders Only [facility] [address] [place] [address] Arpita Edmonds MD Empty sella turcica (CMS/HCC) (Primary Dx); Papilledema 06/20/2024 Telephone [facility] [address] [place] [phone] Maricarmen Smiley, OD 06/19/2024 11:15 AM EST Office Visit [facility] [address] [place] [phone] Maricarmen Smiley, OD Optic papillitis of both eyes (Primary Dx); Hypermetropia, bilateral; Corneal scar, right eye 06/19/2024 Orders Only GENERIC EXTERNAL DATA DEPARTMENT Provider, Generic External Data 06/19/2024 Telephone [facility] MED[facility] [address] [place] [phone] Arpita Edmonds MD Referral 06/19/2024 Travel 06/09/2024 Travel 05/16/2024 Telephone [facility] [address] [place] [address] Lisa Belcher, RN Results 05/16/2024 Telephone [facility] [address] [place] [phone] Maggy Thompson, RN Results 05/16/2024 Orders Only [facility] [address] [place] [address] Oz Ballesteros MD Candidiasis of female genitalia (Primary Dx) 05/16/2024 Refill [facility] [address] [place], [place] [phone] Arpita Edmonds MD Influenza-like symptoms 05/15/2024 6:20 PM EST Office Visit [facility] [address] [address] Oz Ballesteros MD Infertility associated with anovulation (Primary Dx); Acute vaginitis 05/15/2024 Travel 05/15/2024 Telephone [facility] [address] [place] [address] Kimberlee Khoury CNM 05/09/2024 11:20 AM EST Office Visit [facility] [address] [place] [address] Kate Ware MD Acute frontal sinusitis, recurrence not specified (Primary Dx); Respiratory infection 05/09/2024 Telephone [facility] [address] [place] [address] Arpita Edmonds MD Nurse Triage 05/08/2024 Refill [facility] [address] [place], [place] [phone] Arpita Edmonds MD 05/07/2024 Refill [facility] [address] [place], [place] [phone] Arpita Edmonds MD from Last 3 Months Immunizations Name Administration Dates Next Due HPV 9-Valent 01/27/2022,01/20/2021 Hep B, adult 09/27/2018,08/24/2017,06/03/2017 Pfizer Covid-19 Vaccine 12+ 04/16/2021, Tdap 06/03/2017 Social History Tobacco Use Types Packs/Day Years Used Date Smoking Tobacco: Former Cigarettes 0.3 4 Q uit: 2022 Passive Smoke Exposure: Never Smokeless Tobacco: Never Tobacco Cessation:Counseling Given: Not Answered Comments:Smokes cigarettes only when she drinks ocassional Alcohol Use Standard [...] Patient Health Questionnaire-2 Score 0 06/03/2022 Comments Yes Sex and Gender Information Value Date Recorded Sex Assigned at Female 04/20/2022 10:32 AM EDT Legal Sex Female 10:32 AM EDT Gender Identity Female 04/20/2022 10:32 AM EDT Sexual Orientation Choose not to disclose 2021 10:32 AM EDT Last Filed Vital Signs Vital Sign Reading Time Taken Comments Blood Pressure 124/90 08/01/2024 10:53 AM EST Pulse 60 08/01/2024 10:53 AM EST Temperature 36.2 ??C (97.1 ??F) 08/01/2024 10:[address] Respiratory Rate 18 08/01/2024 10:53 AM EST Oxygen Saturation 97% 06/30/2024 2:12 PM EST Inhaled Oxygen Concentration - - Weight 91 kg (200 lb 9.6 oz) 08/01/2024 10:53 AM EST Height 170.2 cm (5' 7 ) 06/28/2024 10:45 AM EST Body Mass Index 31.42 06/28/2024 10:45 AM EST Plan of Treatment Upcoming Encounters Date Type Department Care Team (Late st Contact Info) Description 08/01/2024 2:15 PM EST Office Visit [facility] [address] [facility] [place] [address] Arrived Health Maintenance Due Date Last Done Comments Alcohol/Substance Use Screening 1996 Dental X-Ray: Full Mouth 02/12/2021 02/11/2018 Dental Oral Exam 03/06/2022 09/02/2021, , 02/11/2018 Dental Prophylaxis 03/06/2022 09/02/2021, 0 10/07/2018, 03/01/2018 HPV Vaccines (3 - 3-dose SCDM series) 04/21/2022 01/27/2022, 01/20/2021 Dental X-Ray: Bitewings 09/03/2022 09/02/2021, 02/11 Depression Screening 06/03/2023 06/03/2022, 06/03/20 COVID-19 Vaccine ( season) 2024 04/16/2021, 02/27/2021 Influenza Vaccine (#1) 2024 SDOH Screening 11/01/2024 11/02/2023 Tobacco Screening 06/30/2025 06/30/2024 Family Planning (PISQ) 08/01/2025 08/01/2024 Cervical Cancer Screening 07/27/2026 HPV/Cotest 07/27/2026 07/27/2023, 08/0 07/2021, 06/08/2019, Additional history exists Pap Smear 07/27/2026 07/27/2023, 01/20/2022 DTaP/Tdap/Td Vaccines (2 - Td or Tdap) 06/03/2027 06/03/2017 Lipid Panel 08/12/2027 08/12/2022 Zoster Vaccines (1 of 2) 2034 RSV Patients and Patients Aged 60 years or older (1 - 1-dose 75+ series) 11/22/2059 Hepatitis B Vaccines Completed 09/27/2018, 08/24/2017, 06/03/2017 Hepatitis C Screening Completed 06/30/2023 , 09/15/2022, 12/11/2021, Additional history exists HIV Screening Completed 10/05/2023, 08/20, 12/11/2021, Additional history exists HIB Vaccines Aged Out No longer eligi ble based on patient's age to complete this topic Hepatitis A Vaccines Aged Out No long er eligible based on patient's age to complete this topic IPV Vaccines Aged Out No longer eligi ble based on patient's age to complete this topic Meningococcal Vaccine Aged Out No daniel yobani eligible based on patient's age to complete this topic Pneumococcal Vaccine: Pediatrics (0 to 5 Years) and At-Risk Patients (6 to 49) Years) Aged Out No longer eligible based on patient's age to complete this topic RSV under 20 months Aged Out No longe r eligible based on patient's age to complete this topic Rotavirus Vaccines Aged Out No longer eligible based on patient's age to complete this topic Procedures Procedure Name Priority Date/Time Associated Diagnosis Comments AUTOMATED VISUAL FIELD, EXTENDED - OU - BOTH EYES Routine 07/04/2024 3:50 PM EST Optic papillitis of both eyes MR ORBIT FACE NECK W AND WO CONTRAST Routine 06/19/2024 6:33 PM EST MR BRAIN W AND WO CONTRAST Routine 06/19/2024 6:22 PM EST BASIC METABOLIC PANEL Routine 06/19/2024 3:18 PM EST CBC WITH AUTO DIFFERENTIAL Routine 06/19/2024 3:18 PM EST OCT, OPTIC NERVE - OU - BOTH EYES Routine 06/19/2024 1:35 PM EST Optic papillitis of both eyes BACTERIAL VAGINOSIS PANEL Routine 05/15/2024 6:30 PM EST Acute vaginitis CHLAMYDIA/N. GONORRHOEAE RNA, TMA, UROGENITAL Routine 05/15/2024 6:30 PM EST Acute vaginitis POCT INFLUENZA B (ID NOW RAPID MOLECULAR) Routine 05/09/2024 11:19 AM EST Respiratory infection POCT INFLUENZA A (ID NOW RAPID MOLECULAR) Routine 05/09/2024 11:19 AM EST Respiratory infection POCT RAPID COVID ANTIGEN Routine 05/09/2024 11:19 AM EST Respiratory infection HIV 1/2 ANTIGEN/ANTIBODY, FOURTH GENERATION W/RFL Routine 10/05/2023 4:27 PM EDT Sore throat Other fatigue HPV MRNA E6/E7 REFLEX TO HPV 16, 18/45 Routine 07/27/2023 2:46 PM EST PAP SMEAR Routine 07/27/2023 2:46 PM EST Cervical cancer screening HEPATITIS C AB W/REFL TO HCV RNA, QN, PCR Routine 06/30/2023 11:07 AM EST Vaginal discharge LIPID PANEL, STANDARD Routine 08/12/2022 9:17 AM EST Iron deficiency anemia due to chronic blood loss PROPHYLAXIS - ADULT Routine 09/02/2021 1 2:00 AM EDT BITEWINGS - 4 RADIOGRAPHIC IMAGES Routine 09/02/2021 12:00 AM EDT PERIODIC ORAL EVALUATION - ESTABLISHED PATIENT Routine 09/02/2021 12:00 AM EDT DIAGNOSTIC - DIAGNOSTIC IMAGING - INTRAORAL - COMPREHENSIVE SERIES OF RADIOGRAPHIC IMAGES Routine 02/11/2018 12:00 AM EDT from Last 3 Months or Most Recently Relevant to Health Maintenance Results * Automated Visual Field, Extended - OU - Both Eyes (07/04/2024 3:50 PM EST) Narrative Maricarmen Smiley, OD - 07/04/2024 3:50 PM EST VISUAL FIELD INTERPRETATION Reason for testing: Reliability: OD: _Reliable_ (FP: 0% , FN: 0% ) OS: _Reliable_ (FP: 12% , FN: 0% ) Statistical Indices: OD: MD: 0.6 dB, PSD: 1.4 dB OS: MD: 0.8 dB, PSD: 2.4 dB Impression: OD: No defects, full field OS: Few superior defects, poor structural correlation. Must repeat. Management Plan: Monitor in 6 months us Maricarmen Smiley OD OPHTH VISUAL FIELD Final Result * MR Orbit Face Neck w/ and w/o Contrast (06/19/2024 6:33 PM EST) Anatomical Region Laterality Modality Head, Neck Magnetic Resonan ce 06/19/2024 6:33 PM EST Narrative 06/19/2024 6:35 PM EST ? [facility] ?[address] ?[place] [address] ? Magnetic Resonance Report ? Signed with Addenda ? Patient: Brown Mayer,Sujeily ?MR#: ?? [id number] ? : 1985 ?Acct:[id number] ? Age/Sex: 38 / F ?ADM Date: 06/19/24 ? Loc: HO.ED ? Attending Dr: ? Ordering Physician: David Watson ?? Date of Service: 06/19/24 ?? Procedure(s): MR orbits face neck wo/w con ?? Accession Number(s): [id number] ? cc: Arpita Edmonds MD; David Watson ?ADDENDUM ?? This document has been electronically signed by: Darrell Clifton MD on ?? 06/19/2024 18:33:39 ? ADDENDUM: ?? Addendum: ?? Small nodule in the left parotid is likely an intraparotid lymph node ?? however consider comparison to prior imaging or follow-up for confirmation. ? This document has been electronically signed by: Darrell Clifton MD on ?? 06/19/2024 18:40:05 ? Addendum Dictated By: ?Triston Miguel MD ? Addendum Signed By: ? <Electronically signed by Triston Miguel MD in OV> ?06/19/24 1841 ?? Addendum Cosigned By: ? DD/ ? TD/TT: 06/19/24 ? CLINICAL HISTORY: Papilledema ? MR of the orbits was performed before and after contrast administration. ? No comparison. ? Findings: ?? There is mild artifact. ?? The globes are unremarkable. No retro-orbital mass is identified. ?? No abnormality of the extraocular muscles or lacrimal glands is ?? identified. ?? An empty sella is incidentally noted. No suprasellar mass is identified. ?? The optic nerves are unremarkable demonstrating no abnormal enhancement. ?? In the left parotid there is a 10 mm nodular area likely an intraparotid ?? lymph node. ? Impression: ?? Unremarkable MR of the orbits. Specifically slight prominence of the CSF ?? adjacent to the optic nerve likely within normal limits. ? This document has been electronically signed by: Darrell Clifton MD on ?? 06/19/2024 18:33:39 ? Dictated By: ?Triston Miguel MD ? Signed By: ?<Electronically signed by Triston Miguel MD in OV> ?06/19/24 1834 ? DD/ 1833 ? TD/TT: 06/19/24 1833 ? Flight Crew Ordnanceman: ? Procedure Note Donotuseinterpreter, Image - 06/19/[address] [address] Magnetic Resonance Report Signed with Cristal Patient: Td LoyaMR#: [id number] : 1985Acct:[id number] Age/Sex: 38 / FADM Date: 06/19/24 Loc: HO.ED Attending Dr: Ordering Physician: David Watson Date of Service: 06/19/24 Procedure(s): MR orbits face neck wo/w con Accession Number(s): [id number] cc: Arpita Edmonds MD; David Watson ADDENDUM This document has been electronically signed by: Darrell Clifton MD on 06/19/2024 18:33:39 ADDENDUM: Addendum: Small nodule in the left parotid is likely an intraparotid lymph node however consider comparison to prior imaging or follow-up forconfirmation. This document has been electronically signed by: Darrell Clifton MD on 06/19/2024 18:40:05 Addendum Dictated By: Triston Miguel MD Addendum Signed By: <Electronically signed by MD Rahel in OV> 06/19/24 184 Addendum Cosigned By: DD/ TD/TT: 06/19/24 CLINICAL HISTORY: Papilledema MR of the orbits was performed before and after contrast administration. No comparison. Findings: There is mild artifact. The globes are unremarkable. No retro-orbital mass is identified. No abnormality of the extraocular muscles or lacrimal glands is identified. An empty sella is incidentally noted. No suprasellar mass is identified. The optic nerves are unremarkable demonstrating no abnormal enhancement. In the left parotid there is a 10 mm nodular area likely an intraparotid lymph node. Impression: Unremarkable MR of the orbits. Specifically slight prominence of the CSF adjacent to the optic nerve likely within normal limits. This document has been electronically signed by: Darrell Clifton MD on 06/19/2024 18:33:39 Dictated By: Triston Miguel MD Signed By: <Electronically signed by Triston Miguel MD in OV> 06/19/241833 DD/ 32 TD/TT: 06/19/241832 Flight Crew Ordnanceman: us [facility] External Provider IMG MRI PROCEDURES Edited Result - Final * Mr Brain w/ and w/o Contrast (06/19/2024 6:22 PM EST) Anatomical Region Laterality Modality Brain Magnetic Resonan ce 06/19/2024 6:22 PM EST Narrative 06/19/2024 6:25 PM EST ? [facility] ?[address] ?[place] [address] ? Magnetic Resonance Report ? Signed with Addenda ? Patient: Brown Mayer,Sujeily ?MR#: ?? [id number] ? : 1985 ?Acct:[id number] ? Age/Sex: 38 / F ?ADM Date: 06/19/24 ? Loc: HO.ED ? Attending Dr: ? Ordering Physician: David Watson ?? Date of Service: 06/19/24 ?? Procedure(s): MR head/brain wo/w con ?? Accession Number(s): [id number] ? cc: Arpita Edmonds MD; David Watson ?ADDENDUM ?? This document has been electronically signed by: Darrell Clifton MD on ?? 06/19/2024 18:22:59 ? ADDENDUM: ?? Addendum: ?? If the patient is clinically stable consider follow-up in 3-6 months. ? This document has been electronically signed by: Darrell Clifton MD on ?? 06/26/2024 17:15:37 ? Addendum Dictated By: ?Triston Miguel MD ? Addendum Signed By: ? <Electronically signed by Triston Miguel MD in OV> ?06/26/241715 ?? Addendum Cosigned By: ? DD/DT: 12/ ? TD/TT: 06/26/2412/13/1714 ? CLINICAL HISTORY: Papilledema ? MR of the brain was performed before and after contrast administration. ? No comparison. ? Findings: ?? There is no hydrocephalus. ?? There are mild nonspecific white matter lesions. ?? No abnormal extra-axial collections are identified. ?? No masses are seen and there is no mass effect. ?? No acute infarct is identified. ?? No abnormally enhancing lesions are identified. ? Impression: ?? No acute intracranial abnormality is identified. ?? There are mild nonspecific white matter lesions. Etiology and significance ?? uncertain therefore consider comparison to previous or follow-up to assess ?? for stability. ? This document has been electronically signed by: Darrell Clifton MD on ?? 06/19/2024 18:22:59 ? Dictated By: ?Triston Miguel MD ? Signed By: ?<Electronically signed by Triston Miguel MD in OV> ?06/19/24 1824 ? DD/ 21 ? TD/TT: 06/19/241821 ? Flight Crew Ordnanceman: ? Procedure Note Donotuseinterpreter, Image - 06/26/2024 [place] [address] Magnetic Resonance Report Signed with Cristal Patient: Td LoyaMR#: [id number] : 1985Acct:[id number] Age/Sex: 38 / FADM Date: 06/19/24 Loc: HO.ED Attending Dr: Ordering Physician: David Watson Date of Service: 06/19/24 Procedure(s): MR head/brain wo/w con Accession Number(s): [id number] cc: Arpita Edmonds MD; David Watson ADDENDUM This document has been electronically signed by: Darrell Clifton MD on 06/19/2024 18:22:59 ADDENDUM: Addendum: If the patient is clinically stable consider follow-up in 3-6 months. This document has been electronically signed by: Darrell Clifton MD on 06/26/2024 17:15:37 Addendum Dictated By: Triston Miguel MD Addendum Signed By: <Electronically signed by MD Rahel in OV> 06/26/241715 Addendum Cosigned By: DD/ TD/TT: 06/26/2412/13/1714 CLINICAL HISTORY: Papilledema MR of the brain was performed before and after contrast administration. No comparison. Findings: There is no hydrocephalus. There are mild nonspecific white matter lesions. No abnormal extra-axial collections are identified. No masses are seen and there is no mass effect. No acute infarct is identified. No abnormally enhancing lesions are identified. Impression: No acute intracranial abnormality is identified. There are mild nonspecific white matter lesions. Etiology and significance uncertain therefore consider comparison to previous or follow-up to assess for stability. This document has been electronically signed by: Darrell Clifton MD on 06/19/2024 18:22:59 Dictated By: Triston Miguel MD Signed By: <Electronically signed by Triston Miguel MD in OV> 06/19/241823 DD/ 21 TD/TT: 06/19/241821 [employer] Ordnanceman: [facility] External Provider IMG MRI PROCEDURES Edited Result - Final * (ABNORMAL) CBC auto differential (06/19/2024 3:18 PM EST) White Blood Count 6.7 4.8 - 10.8 X10*3/uL [facility] Red Blood Count 3.95(L) 4.20 - 5.50 X10*6/uL [facility] Hemoglobin 11.8(L) 12.0 - 16.0 g/dl [facility] Hematocrit 36.6(L) 37.0 - 47.0 % [facility] Mean Corpuscular Volume 92.7 80.0 - 98.0 fL [facility] Mean Corpuscular Hemoglobin 29.9 27.0 - 33.0 pg [facility] Mean Corpuscular HGB Conc 32.2 31.0 - 35.0 g/dl [facility] Red Cell Distribution Width 13.7 11.0 - 16.0 % [facility] Platelet Count 221 160 - 400 X10*3/uL [facility] Mean Platelet Volume 11.0 9.4 - 12.3 fL [facility] Neutrophils Percent Auto 58.4 45 - 73 % [facility] Imm Gran Pct Auto 0.3 0.0 - 0.4 % [facility] Lymphocytes Percent Auto 31.9 20 - 40 % [facility] Monocytes Percent Auto 6.8 2 - 11 % [facility] Eosinophils Percent Auto 2.0 0 - 4 % [facility] Basophils Percent Auto 0.6 0 - 2 % [facility] NRBC Pct Auto 0.0 0.0 - 0.2 /100WBC [facility] Neutrophils Absolute Auto 3.9 2.0 - 8.3 x10*3/uL [facility] Imm Gran Abs Auto 0.02 0.00 - 0.03 X10*3/uL [facility] Lymphocytes Absolute Auto 2.1 1.2 - 4.9 X10*3/uL [facility] Monocytes Absolute Auto 0.5 0.1 - 1.2 X10*3/uL [facility] Eosinophils Absolute Auto 0.1 0.0 - 0.4 X10*3/uL [facility] Basophils Absolute Auto 0.0 0.0 - 0.2 X10*3/uL [facility] NRBC Abs Auto 0.000 0.0 - 0.012 X10*3/uL [facility] 06/19/2024 3:18 PM EST 06/19/2024 3:20 PM EST us Generic External Data Provider LAB BLOOD ORDERAB LES Final Result Performing Organization Address City/State/[facility] Co de Phone Number [facility] [address] [place] [phone] * (ABNORMAL) Basic Metabolic Panel (06/19/2024 3:18 PM EST) Sodium 140 135 - 145 mmol/L [facility] Potassium 3.8 3.3 - 5.1 mmol/L [facility] Chloride 107 96 - 108 mmol/L [facility] Carbon Dioxide 27 22 - 29 mmol/L [facility] Anion Gap 10(L) 12 - 20 [facility] Urea Nitrogen (BUN) 10 9 - 16 mg/dL [facility] Creatinine, Serum 0.66 0.5 - 1.4 mg/dL [facility] Creatinine Clr Calc Pharmacy 132.9 [facility] Comment:Provided height and weight: 170.18 cm,91.6 kg.eGFR (calculated from the MDRD study equation) and eCrCl(calculated from the Cockcroft-Gault equation) are based ondifferent parameters and may not yield comparable results.If eCrCl result is absurd, please check patient'sheight/weight. Estimated Glomerular Filt Rate >60 [facility] Comment:Chronic Kidney Disea se: Estimated GFR < 60 mL/min/1.99s4Yvksmr Kidney Disease: Estimated GFR < 15 mL/min/1.73m2 Glucose 109 60 - 115 mg/dL [facility] Calcium 8.7 8.4 - 10.2 mg/dL [facility] 06/19/2024 3:18 PM EST 06/19/2024 3:20 PM EST us Generic External Data Provider LAB BLOOD ORDERAB LES Final Result Performing Organization Address City/State/[facility] Co de Phone Number [facility] [address] [place] [phone] * OCT, Optic Nerve - OU - Both Eyes (06/19/2024 1:35 PM EST) Maricarmen Cruz, OD - 06/19/2024 1:35 PM EST OCT INTERPRETATION Optical Coherence Tomography Interpretation Report RNFL Reliability RNFL OU: OU: Poor quality RNFL scans (poor centration, cut off superior temporally); numerical values not reliable Test findings RNFL OU: ONH elevation present. No optic disc drusen visible. Possible PHOM nasally right eye (OD), possible PHOM temporally left eye (OS) No IRF/SRF OU Optical Coherence Tomography Interpretation Report GCL: Reliability GCL OU: Good quality scans, reliable Measurements GCL: Avg GCL thickness OD: ??77 microns OS: ??79 microns Test findings GCL: OU: No areas of thin ganglion cell layer (GCL). No indication of prolonged papilledema from ganglion cell layer (GCL). Impression and Plan: Optic papillitis both eyes (OU). Papilledema suspect both eyes (OU). Obtain MRI and LP if indicated. us Maricarmen Smiley OD OPHTH TOMOGRAPHY Final Result * (ABNORMAL) Bacterial Vaginosis Panel (05/15/2024 6:30 PM EST) Pathologist [facility] TRICHOMONAS VAGINALIS DETECTION BY PCR NOT DETECTED Not Detect [facility] BACTERIAL VAGINOSIS DETECTION BY PCR NEGATIVE Negative [facility] Comment:The BV organism targ ets of the Xpert Xpress MVP test can becommensal in women; Xpert Xpress MVP positive results forbacterial vaginosis should be considered in conjunction withother clinical and patient information to determine thedisease status. Organisms that are not detected by the XpertXpress MVP test have also been reported to be associatedwith BV and aerobic vaginitis.The Xpert Xpress MVP test performance has not been evaluatedin patients under the age of 14. WEN GROUP DETECTION BY PCR DETECTED(A) Not Detect [facility] Wen glab krusei PCR NOT DETECTED Not Detect [facility] Swab Vaginal structure / Unknown 05/15/2024 6:30 PM EST 05/16/2024 11:51 AM EST us Oz Ballesteros MD LAB MICROBIOLOGY - GENERAL ORDERABLES Final Result [facility] [address] [place] [phone] * Chlamydia/N. Gonorrhoeae RNA, TMA, Urogenitial (05/15/2024 6:30 PM EST) Pathologist [facility] CT PCR NOT DETECTED Not Detect. [facility] Comment:A not detected test result does not exclude the possibilityof infection because test results can be affected byimproper specimen collection, concurrent antibiotic therapy,or the number of organisms in the specimen which may bebelow the sensitivity of the test. As with many diagnostictests, results from the Xpert CT/NG assay should beinterpreted in conjunction with other laboratory andclinical data available to the clinician.Xpert CT/NG performance has not been evaluated in patientsless than 14 years of age. The assay should not be used forthe evaluationof suspected sexual abuse or for other medico-legalindications. Additional testing is recommended in anycircumstance when false positive or false negative resultscould lead to adverse medical, social or psychologicalconsequences. NG PCR NOT DETECTED Not Detect. [facility] Comment:A not detected test result does not exclude the possibilityof infection because test results can be affected byimproper specimen collection, concurrent antibiotic therapy,or the number of organisms in the specimen which may bebelow the sensitivity of the test. As with many diagnostictests, results from the Xpert CT/NG assay should beinterpreted in conjunction with other laboratory andclinical data available to the clinician.Xpert CT/NG performance has not been evaluated in patientsless than 14 years of age. The assay should not be used forthe evaluationof suspected sexual abuse or for other medico-legalindications. Additional testing is recommended in anycircumstance when false positive or false negative resultscould lead to adverse medical, social or psychologicalconsequences. Swab Vaginal structure / Unknown 05/15/2024 6:30 PM EST 05/16/2024 11:51 AM EST Narrative [facility] - 05/16/2024 4:11 PM EST Vaginal Oz Ballesteros MD LAB MICROBIOLOGY - GENERAL ORDERABLES Final Result Performing Organization Address [facility] Co de Phone Number [facility] [address] [place] [phone] * Influenza B (ID NOW Rapid Molecular) (05/09/2024 11:19 AM EST) Influenza B Negative Negative, Indeterminate [facility] Swab 05/09/2024 11:1 9 AM EST Kate Ware MD POINT OF CARE TEST ENTER/E DIT ORDERABLES Final Result Performing Organization Address [facility] Co de Phone Number [facility] [address] [place] [phone] * Influenza A (ID NOW Rapid Molecular) (05/09/2024 11:19 AM EST) [facility] Influenza A Negative Negative, Indeterminate [facility] Swab 05/09/2024 11:1 9 AM EST Kate Ware MD POINT OF CARE TEST ENTER/E DIT ORDERABLES Final Result Performing Organization Address City/[facility]/ZIP Co de Phone Number [facility] [address] [place] [phone] * POCT Rapid COVID Ag (05/09/2024 11:19 AM EST) [facility] Rapid COVID Ag Negative [facility] Swab 05/09/2024 11:1 9 AM EST Kate Ware MD POINT OF CARE TEST ENTER/E DIT ORDERABLES Final Result Performing Organization Address [facility] Co de Phone Number [facility] [address] [place] [phone] * HIV-1/2 Antigen and Antibodies, Fourth Generation, with Reflexes (10/05/2023 4:27 PM EDT) [facility] HIV AB/AG Nonreactive Nonreactive [facility] Comment:HIV-1 p24 Ag and/or HIV-1/HIV-2 Ab not detected.A test result that is nonreactive does not exclude thepossibility of exposure to or infection with HIV-1 and/orHIV-2. Nonreactive results in this assay for individualswith prior exposure to HIV-1 and/or HIV-2 may be due toantigen and antibody levels that are below the limit ofdetection of this assay.The [employer] HIV Ag/Ab Combo assay result andsupplemental assay results should be interpreted inconjunction with the patient's clinical presentation,history and other laboratory results. If the results areinconsistent with clinical evidence, additional testing issuggested to confirm the result. Blood Venous blood specimen / Unknown 10/05/2023 4:27 PM EDT 10/05/2023 5:27 PM EDT us Oz Ballesteros MD LAB BLOOD ORDERABLES Final Result Performing Organization Address [facility] Co de Phone Number [facility] [address] [place] [phone] * HPV mRNA E6/E7 w/Reflex to HPV Genotypes 16, 18/45 (07/27/2023 2:46 PM EST) HPV nRNA E6/E7 Not Detected Not Detected [facility] Comment:Methodology: Transcr iption-Mediated AmplificationThis assay detects E6/E7 viral messenger RNA (mRNA) from 14high-risk HPV types (16,18,31,33,35,39,45,51,52,56,58,59,66,68).Cervical sources are required for HPV testing.If a vaginal source from a patient who has had atotal hysterectomy with removal of cervix wassubmitted, please contact the testing laboratoryfor alternative testing options.For additional information, please refer tohttp://education.Moasis/faq/IYK710s7(This link if provided for information/educational purposes only.)THIS TEST WAS PERFORMED AT:[facility] [place] [phone] ZHOU MD HPV mRNA E6/E7 [facility] HPV 16 RNA [facility] HPV 18/45 RNA [facility] 07/27/2023 2:46 PM EST 07/28/2023 11:40 AM EST us Kimberlee Khoury CNM LAB CYTOLOGY ORDERABLES F inal Result Performing Organization Address [facility] Co de Phone Number [facility] [address] [place] [phone] * Pap Smear (07/27/2023 2:46 PM EST) Swab Cervix uteri structure / Unknown 07/27/2023 2:46 PM EST 07/28/2023 11:40 AM EST Narrative [facility] - 08/10/2023 10:36 AM EST ----- ------- Name: Brownbruce MayerMalcolmsarkis ?Age/Sex: 37/F ? : 1985 Unit#: [id number] ?? Attend Dr: KIMBERLEE KHOURY CNM ?Re07/27/23 ?Status: DEP REF ? Location: HO.HHCLNP ? Disch: ? ----- ------- SPEC : [id number] ? RECD: 07/28/23-1140 ? STATUS: ??SOUT ? REQ NUM: [id number] ? LAM: 07/27/23-1446 ? SUBM DR: KIMBERLEE KHOURY CNM ? ENTERED: ??07/28/23-1233 ?SP TYPE: Pap Smr ?OTHR : ? ORDERED: ??Pap Smear ? Interpretation ?? Satisfactory for evaluation. ?? Negative for intraepithelial lesion or malignancy. ?HPV mRNA E6/E7: ?NOT DETECTED ? This assay detects E6/E7 viral messenger RNA (mRNA) from 14 high-risk HPV types (16, 18, ?? 31, 33, 35, 39, 45, 51, 52, 56, 58, 59, 66, 68) ?? HPV testing performed by [facility], [place], [place]. ??See reference laboratory ?? portion of the EMR for entire report. ?Clinical Information LMP: Unknown date Previous PAP test: Unknown date/findings Other history: hx LEEP, NIL/neg 2021 ? Material Received ?? ThinPrep-Cervical ----- ------- Signed (signature on file) DAVID Manning (ASCP) 08/10/23 1036 ? ----- ------- ? END OF REPORT ? Kimberlee VERGARA LAB CYTOLOGY ORDERABLES F inal Result Performing Organization Address [facility] de Phone Number [facility] [address] [place] [phone] * Hepatitis C Antibody with Reflex to HCV, RNA, Quantitative, Real-Time PCR (06/30/2023 11:07 AM EST) Pathologist [facility] Hepatitis C Antibody Nonreactive Nonreactive [facility] Comment:Antibodies to HCV no t detected; does not exclude early acuteHCV infection. Blood Venous blood specimen / Unknown 06/30/2023 11:07 AM EST 06/30/2023 2:12 PM EST Clara Cristina MD LAB BLOOD ORDERABLES Final Resul t Performing Organization Address [facility] de Phone Number [facility] [address] [place] [phone] * (ABNORMAL) Lipid Panel, Standard (08/12/2022 9:17 AM EST) Cholesterol, Total 126 <200 mg/dL [facility] HDL Cholesterol 64 > OR = 50 mg/dL [facility] Triglycerides 176(H) <150 mg/dL [facility] LDL Cholesterol 37 mg/dL (calc) [facility] Comment: Reference range: <100 Desirable range <100 mg/dL for primary prevention; ?? <70 mg/dL for patients with CHD or diabetic patients with > or = 2 CHD risk factors. LDL-C is now calculated using the Jose-Betts calculation, which is a validated novel method providing better accuracy than the Friedewald equation in the estimation of LDL-C. Jose SS et al. MYCHAL. 2013;310(19): 0359-9136 (http://education.[employer]/faq/DNY733) Chol/HDLC Ratio 2.0 <5.0 (calc) [facility] Non-HDL Cholesterol 62 <130 mg/dL (calc) [facility] Comment: For patients with diabetes plus 1 major ASCVD risk factor, treating to a non-HDL-C goal of <100 mg/dL (LDL-C of <70 mg/dL) is considered a therapeutic option. Blood Venous blood specimen / Unknown 08/12/2022 9:17 AM EST 08/12/2022 9:18 AM EST Narrative [facility] - 08/13/2022 2:56 PM EST FASTING:YES FASTING: YES Arpita Edmonds MD LAB BLOOD ORDERABLES Final Re sult [facility] [address], [place] [phone] [facility] [place] [facility] [address] [facility], ([address]) [place] [phone] from Last 3 Months or Most Recently Relevant to Health Maintenance Insurance [facility] C[place] AD[place] Care Teams Web Operations Manager Relationship Specialty Start Date End Date Arpita Edmonds MD [address] [place] [address] F[place]arcon [phone] PCP - General Family Medicine 01/28/18
--- OUTSIDE RECORDS SUMMARY | 2024-08-01 12:50 | XMS_ITS | Encounter Summary ---
Author Organization [employer] Address [address] [place] [address] Care Team Providers Care Assistant Spa Director Name Role Phone Arpita Edmonds MD Primary Care Provider Encounter Details Date Type Department Care Team ([facility] st Contact Info) Description 10/12/2023 Orders Only [facility] [address] [place] [address] Brandee Bhakta FNP [address] [place] [address] Social History Tobacco Use Types Packs/Day Years [...] Description 08/01/2024 2:15 PM EST Office Visit [facility] [address] [place] [phone] Arrived documented as of this encounter Visit Diagnoses Not on filedocumented in this encounter Additional Health Concerns Assessment Noted Time PHQ-9 Depression Total Score: 2 06/03/20 22 10:05 AM EST documented as of this encounter Care Teams Assistant Spa Director Relationship Specialty Start Date End Date Arpita Edmonds MD [address] [place] [address] PCP - General Family Medicine 01/28/18 documented as of this encounter
--- OUTSIDE RECORDS SUMMARY | 2024-08-01 12:50 | XMS_ITS | Encounter Summary ---
Author Organization [employer] Address [address] [facility] [address] [place] [address] Care Team Providers Care Dogman/Woman Name Role Phone Arpiat Edmonds MD Primary Care Provider [phone] Reason for Visit * Reason Onset Date Comments Medication Question 11/10/2023 Encounter Details Date Type Department Care Team ([facility] Contact Info) Description 11/10/2023 Telephone [facility] MEDICINE [address] [place] [address] Arpita Edmonds MD [address] [place], [place] [phone] Medication Question Social History Tobacco Use Types Packs/Day Years [...] encounter Miscellaneous Notes * Telephone Encounter - Kwesi Soliman - 11/10/2023 3:39 PM EDT Tc from patient calling to request the status multi-vitamins that was discussed in the appt on 11/09patient would like the script to be sent to [facility]/pharmacy #[id number] FIDEL MATTHEW [address] documented in this encounter Plan of Treatment Upcoming Encounters Date Type Department Care Team (Late st Contact Info) Description 08/01/2024 2:15 PM EST Office Visit [facility] OPT[facility] [address] [place] [address] Arrived documented as of this encounter Visit Diagnoses Not on filedocumented in this encounter Additional Health Concerns Assessment Noted Time PHQ-9 Depression Total Score: 2 06/03/20 10:05 AM EST documented as of this encounter Care Teams Dogman/Woman Relationship Specialty Start Date End Date Arpita Edmonds MD [address] [facility] [place] [address] PCP - General Family Medicine 01/28/18 documented as of this encounter
--- OUTSIDE RECORDS SUMMARY | 2024-08-01 12:50 | XMS_ITS | Encounter Summary ---
Author Organization [employer] Address [address] [place] [address] Care Team Providers Care Chief Learning Officer Name Role Phone Arpita Edmonds MD Primary Care Provider [phone] Encounter Details Date Type Department Care Team ([facility] st Contact Info) Description 02/08/2024 Telephone [facility] MEDICINE [address] [place] [address] Arpita Edmonds MD [address] [place], [place] [phone] Social History Tobacco Use Types Packs/Day Years [...] Description 08/01/2024 2:15 PM EST Office Visit [facility] OPT[facility] [address] [place] [address] Arrived documented as of this encounter Visit Diagnoses Not on filedocumented in this encounter Additional Health Concerns Assessment Noted Time PHQ-9 Depression Total Score: 2 06/03/20 22 10:05 AM EST documented as of this encounter Care Teams Chief Learning Officer Relationship Specialty Start Date End Date Arpita Edmonds MD [address] [place] [address] PCP - General Family Medicine 01/28/18 documented as of this encounter
--- OUTSIDE RECORDS SUMMARY | 2024-08-01 12:51 | XMS_ITS | Encounter Summary ---
Author Organization [employer] Address [address] [place] [address] 7t [place] [address] Care Team Providers Care Cost Accountant Name Role Phone Arpita Edmonds MD Primary Care Provider [phone] Reason for Referral * Consultation (STAT) - Closed Specialty Diagnoses / Procedures Referred By Paul luna Referred To Contact Obstetrics and Gynecology Diagnoses Less than 8 weeks gestation of Janice Mota CNM [address] [place] [address] Phone: tel: [facility] [address] [place] [address] Phone: tel: fax: Referral ID Status Reason Start Date Expiration Date V isits Requested Visits Authorized [id number] Closed Specialty Services Required 08/01/2024 08/01/2025 1 1 Encounter Details Date Type Department Care Team (Late st Contact Info) Description 08/01/2024 11:15 AM EST Office Visit [facility] MEDICINE [address] [place] [address] [phone] Janice Mota CNM [address] [place], [place] [phone] Less than 8 weeks gestation of (Primary Dx) Social History Tobacco Use Types [...] your housing situation today? I have alberto vince 04/05/[address] you li [...] AM EDT documented as of this encounter Last Filed Vital Signs Vital Sign Reading Time Taken Comments Blood Pressure 124/90 08/01/2024 10:53 AM EST Pulse 60 08/01/2024 10:53 AM EST Temperature 36.2 ??C (97.1 ??F) 08/01/2024 10:[address] Respiratory Rate 18 08/01/2024 10:53 AM EST Oxygen Saturation - - Inhaled Oxygen Concentration - - Weight 91 kg (200 lb 9.6 oz) 08/01/2024 10:53 AM EST Height - - Body Mass Index 31.42 06/28/2024 10:45 AM EST documented in this encounter Progress Notes * Janice Mota CNM - 08/01/2024 11:15 AM EST Subjective Patient ID: Td Mayer is a 38 y.o. female who presents for CHEMIST [facility]ZYMES visit Here with partner. Recent visit at [facility] for abdominal pain, early . Hcg 88 on 07/30, advised to followup with [facility]. No ultrasound done. LMP 07/01/2024. Had IVF in [facility] 07/19/2024. Feels well other than some mild cramping. No bleeding. Happy about , needs rx. Pap NIL/HPV neg 07/2023. Pap NIL/HPV neg, gonorrhea/chlamydia/trichomonas neg 01/2022. Pap NIL/HPV neg 2018, ASCUS/HPV neg 2017. Previous history of LEEP. Cotesting due 07/2026. Review of Systems Gastrointestinal: Negative for diarrhea and vomiting. Genitourinary: Negative for vaginal bleeding. Objective BP (!) 124/90 Pulse 60 Temp 97.1 ??F (36.2 ??C) (Temporal) Resp 18 Wt 200 lb 9.6 oz (91 kg) BMI 31.42 kg/m?? Physical Exam Constitutional: Appearance: Normal appearance. Neurological: Mental Status: She is alert. Psychiatric: Mood and Affect: Mood normal. Behavior: Behavior normal. Assessment/Plan Diagnoses and all orders for this visit: Less than 8 weeks gestation of - hCG, Total, Quantitative; Future - Referral to Obstetrics / Gynecology; Future It sounds like she has progesterone from fertility specialist in [facility], needs rx. Rx sent in. Seek care at ER if bleeding noted or if cramping worsens. Repeat hcg today. Will contact withresults and plan. Will order early ultrasound if indicated by labs. STAT referral to [facility] for continuation of early care. Advised to hold clonazapam, she takes 1/2 tab prn. Other orders - Vit-Fe Fumarate-FA ( Vitamin) 27-0.8 MG tablet; Take 1 tab orally daily documented in this encounter Plan of Treatment Upcoming Encounters Date Type Department Care Team (Late st Contact Info) Description 08/01/2024 2:15 PM EST Office Visit [facility] OPTOMETRY [address] [place] [address] Arrived Scheduled Orders Name Type Priority Associated Diagnoses Orde r Schedule hCG, Total, Quantitative Lab Routine Less than 8 weeks gestation of Expected: 08/01/2024 (Approximate), Expires: 08/01/2025 Scheduled Referrals Name Type Priority Associated Diagnoses Order Schedule Referral to Obstetrics / Gynecology Outpatient Referral STAT Less than 8 weeks gestation of Expected: 08/01/2024 (Approximate), Expires: 08/01/2025 documented as of this encounter Visit Diagnoses Diagnosis Less than 8 weeks gestation of - Primary documented in this encounter Additional Health Concerns Assessment Noted Time PHQ-9 Depression Total Score: 2 06/03/20 22 10:05 AM EST documented as of this encounter Care Teams Cost Accountant Relationship Specialty Start Date End Date Arpita Edmonds MD [address] [place] [address] PCP - General Family Medicine 01/28/18 documented as of this encounter
--- OUTSIDE RECORDS SUMMARY | 2024-08-01 12:51 | XMS_ITS | Encounter Summary ---
Author Organization [employer] Address [address] [place] [address] 7 [place] [address] Care Team Providers Care Soft Metals Engraver Hand Name Role Phone Arpita Edmonds MD Primary Care Provider [phone] Reason for Visit * Reason Onset Date Comments Appointment Request 07/24/2024 Encounter Details Date Type Department Care Team ([facility] Contact Info) Description 07/24/2024 Telephone [facility] CHC MED & PEDS [address] [place], [place] [phone] Arpita Edmonds MD [address] [place], [place] [phone] Appointment Request Social History Tobacco Use Types Packs/Day Years [...] encounter Miscellaneous Notes * Telephone Encounter - Lisa Belcher RN - 07/25/2024 3:24 PM EST TC placed to pt and LVM to call back the office * Telephone Encounter - Seferino Perera - 07/25/2024 3:08 PM EST Tc from pt returning call regarding prior message. Contact pt at [phone] * Telephone Encounter - Lisa Belcher RN - 07/25/2024 2:22 PM EST TC placed to pt and LVM to call back the office * Telephone Encounter - Viviana Gross - 07/24/2024 12:46 PM EST Tc from pt requesting to book a follow up appt. Forestry Instructor tried getting more information but was unable to understand pt request. Tired offer the next available f/u appt but pt wants a sooner appt. Please call pt to clarify. documented in this encounter Plan of Treatment Upcoming Encounters Date Type Department Care Team (Late st Contact Info) Description 08/01/2024 2:15 PM EST Office Visit [facility] OPTOMETRY [address] [place] [address] Arrived documented as of this encounter Visit Diagnoses Not on filedocumented in this encounter Additional Health Concerns Assessment Noted Time PHQ-9 Depression Total Score: 2 06/03/20 22 10:05 AM EST documented as of this encounter Care Teams Soft Metals Engraver Hand Relationship Specialty Start Date End Date Arpita Edmonds MD [address] [place] [address] PCP - General Family Medicine 01/28/18 documented as of this encounter
--- OUTSIDE RECORDS SUMMARY | 2024-08-01 12:51 | XMS_ITS | Encounter Summary ---
Author Organization [employer] Address [address] 7t [place] [address] Care Team Providers Care Central Station Operator Name Role Phone Arpita Edmonds MD Primary Care Provider [phone] Encounter Details Date Type Department Care Team (Latest Contact Info) Description 08/01/2024 Travel Social History Tobacco Use Types Packs/Day Years [...] Description 08/01/2024 2:15 PM EST Office Visit [facility] OPTOMETRY [address] [place] [address] Arrived documented as of this encounter Visit Diagnoses Not on filedocumented in this encounter Additional Health Concerns Assessment Noted Time PHQ-9 Depression Total Score: 2 06/03/20 22 10:05 AM EST documented as of this encounter Care Teams Central Station Operator Relationship Specialty Start Date End Date Arpita Edmonds MD [address] [place] [address] PCP - General Family Medicine 01/28/18 documented as of this encounter
--- OUTSIDE RECORDS SUMMARY | 2024-08-01 12:51 | XMS_ITS | Encounter Summary ---
Author Organization [employer] Address [address] [facility] 7 [place] [address] Care Team Providers Care Piped Pocket Machine Operator Name Role Phone Arpita Edmonds MD Primary Care Provider [phone] Reason for Visit * Reason Onset Date Comments Identitiy Theft . 02/08/2024 Encounter Details Date Type Department Care Team ([facility] st Contact Info) Description 02/08/2024 Telephone [facility] MEDICINE [address] [place] [address] Arpita Edmonds MD [address] [facility] [address] [place], [place] [phone] Identitiy Theft . Social History Tobacco Use Types Packs/Day Years [...] encounter Miscellaneous Notes * Telephone Encounter - Mino Sands - 02/08/2024 11:28 AM EDT TC this morning from [phone] identifying herself as patient awaiting for triage call since theday prior. caller advised number to return call is [phone] due to having issues with number onfile. 2 hours later call came in from actual number on chart . Par advised yes I just spoke to you this AM. Pt unsure of what PAR was talking about, pt feels its some one she knows who is trying toget seen utilizing patient's information . PT requesting an alert/ pin so we may identity who we are speaking with . documented in this encounter Plan of Treatment Upcoming Encounters Date Type Department Care Team (Late st Contact Info) Description 08/01/2024 2:15 PM EST Office Visit [facility] OPTOMETRY [address] [place] [address] Arrived documented as of this encounter Visit Diagnoses Not on filedocumented in this encounter Additional Health Concerns Assessment Noted Time PHQ-9 Depression Total Score: 2 06/03/20 22 10:05 AM EST documented as of this encounter Care Teams Piped Pocket Machine Operator Relationship Specialty Start Date End Date Arpita Edmonds MD [address] [place] [address] PCP - General Family Medicine 01/28/18 documented as of this encounter
--- OUTSIDE RECORDS SUMMARY | 2024-08-01 12:51 | XMS_ITS | Encounter Summary ---
Author Organization [email or web address] Address [address] [place] [address] 7 [place] [address] Care Team Providers Care Stencil Inspector Name Role Phone Arpita Edmonds MD Primary Care Provider [phone] Reason for Visit * Reason Onset Date Comments Med Refill 03/05/2024 Encounter Details Date Type Department Care Team ([facility] st Contact Info) Description 03/05/2024 Refill [facility] CHC MED & PEDS [address] [place], [place] [phone] Arpita Edmonds MD [address] [place] [address] Social History Tobacco Use Types Packs/Day Years [...] encounter Miscellaneous Notes * Telephone Encounter - Estephanie Puri RN - 03/06/2024 4:11 PM EDT Nicki. TC to pt again, spoke with pt. Advised pt to contact the prescribing provider office, Maricarmen Gonzales for a refill. Pt verbalized understanding. * Telephone Encounter - Kwesi Soliman - 03/06/2024 9:38 AM EDT Tc from patient returning call in regards to message bellow now states the medication that was sentto pharmacy is not able to fill script due to provider not having a license in [place] * Telephone Encounter - Julius Reza - 03/06/2024 9:02 AM EDT Tc from pt requesting script for clonazepam to please be re faxed, states pharmacy has no received script, states will attempt to call pharmacy again. documented in this encounter Plan of Treatment Upcoming Encounters Date Type Department Care Team (Late st Contact Info) Description 08/01/2024 2:15 PM EST Office Visit [facility] OPTOMETRY [address] [place] [address] Arrived documented as of this encounter Visit Diagnoses Not on filedocumented in this encounter Additional Health Concerns Assessment Noted Time PHQ-9 Depression Total Score: 2 06/03/20 22 10:05 AM EST documented as of this encounter Care Teams Stencil Inspector Relationship Specialty Start Date End Date Arpita Edmonds MD [address] [place] [address] PCP - General Family Medicine 01/28/18 documented as of this encounter
--- OUTSIDE RECORDS SUMMARY | 2024-08-01 12:51 | XMS_ITS | Encounter Summary ---
Author Organization [employer] Address [address] 7t [place] [address] Care Team Providers Care Mems Device Scientist Name Role Phone Arpita Edmonds MD Primary Care Provider [phone] Encounter Details Date Type Department Care Team (Latest Contact Info) Description 07/25/2024 Travel Social History Tobacco Use Types Packs/Day [...] Description 08/01/2024 2:15 PM EST Office Visit [facility] OPTOMETRY [address] [place] [address] Arrived documented as of this encounter Visit Diagnoses Not on filedocumented in this encounter Additional Health Concerns Assessment Noted Time PHQ-9 Depression Total Score: 2 06/03/20 22 10:05 AM EST documented as of this encounter Care Teams Mems Device Scientist Relationship Specialty Start Date End Date Arpita Edmonds MD [address] [place] [address] PCP - General Family Medicine 01/28/18 documented as of this encounter
--- OUTSIDE RECORDS SUMMARY | 2024-08-01 12:51 | XMS_ITS | Encounter Summary ---
Author Organization [employer] Address [address] [facility] 7t [place] [address] Care Team Providers Care Focuser Name Role Phone Arpita Edmonds MD Primary Care Provider [phone] Encounter Details Date Type Department Care Team ([facility] Contact Info) Description 07/19/2024 Telephone [facility] CHC MED & PEDS [address] [place], [place] [phone] Arpita Edmonds MD [address] [place] [address] Social History Tobacco Use Types Packs/Day Years [...] encounter Miscellaneous Notes * Telephone Encounter - Ning Robbins RN - 07/21/2024 10:28 AM EST See [employer] message. * Telephone Encounter - Viviana Gross - 07/19/2024 2:45 PM EST Tc from pt requesting a call back regarding My Chart message. Has further questions. documented in this encounter Plan of Treatment Upcoming Encounters Date Type Department Care Team ([facility] st Contact Info) Description 08/01/2024 2:15 PM EST Office Visit [facility] OPTOMETRY [address] [place] [address] Arrived documented as of this encounter Visit Diagnoses Not on filedocumented in this encounter Additional Health Concerns Assessment Noted Time PHQ-9 Depression Total Score: 2 06/03/20 22 10:05 AM EST documented as of this encounter Care Teams Focuser Relationship Specialty Start Date End Date Arpita Edmonds MD [address] [place] [address] PCP - General Family Medicine 01/28/18 documented as of this encounter
--- OUTSIDE RECORDS SUMMARY | 2024-08-01 12:51 | XMS_ITS | Encounter Summary ---
Author Organization [employer] Address [address] [facility] 7t [place] [address] Care Team Providers Care Heel Splitter Name Role Phone Arpita Edmonds MD Primary Care Provider [phone] Reason for Visit * Reason Onset Date Comments Record Request 07/31/2024 Encounter Details Date Type Department Care Team ([facility] Contact Info) Description 07/31/2024 Telephone [facility] MEDICINE [address] [place], [place] [phone] Ольга Fagan RN [address] [place] [address] Record Request Social History Tobacco Use Types Packs/Day [...] encounter Miscellaneous Notes * Telephone Encounter - Janice Mota CNM - 07/31/2024 10:02 AM EST Thanks! * Telephone Encounter - Ольга Fagan RN - 07/31/2024 9:33 AM EST It doesn't look like US was done. ED summary not yet available on OrdrIt. Scanned labs in under media. Per pt discharge instructions, pt was referred to Dick Orellana and advised to call to schedule. Telephone call placed to Dick Orellana who reported that pt has not called to schedule yet and they stated she has no [facility] specialist appts upcoming meaning she is also not scheduled with reproductive endo. Td has an appt with me tomorrow morning. It looks like she was seen at [facility] for abdominalpain, early yesterday. Please get results of any hcg testing and pelvic ultrasounds if done. Are you able to see if she has followup with reproductive endocrinology or OB there? documented in this encounter Plan of Treatment Upcoming Encounters Date Type Department Care Team (Late st Contact Info) Description 08/01/2024 2:15 PM EST Office Visit [facility] OPTOMETRY [address] [place] [address] Arrived documented as of this encounter Visit Diagnoses Not on filedocumented in this encounter Additional Health Concerns Assessment Noted Time PHQ-9 Depression Total Score: 2 06/03/20 22 10:05 AM EST documented as of this encounter Care Teams Heel Splitter Relationship Specialty Start Date End Date Arpita Edmonds MD [address] [place] [address] PCP - General Family Medicine 01/28/18 documented as of this encounter
--- OUTSIDE RECORDS SUMMARY | 2024-08-01 12:51 | XMS_ITS | Encounter Summary ---
Author Organization [employer] Address [address] 7[address] [place] [address] Care Team Providers Care Route Aide Name Role Phone Arpita Edmonds MD Primary Care Provider [phone] Encounter Details Date Type Department Care Team ([facility] st Contact Info) Description 08/06/2022 Orders Only [facility] CHC MED & PEDS [address] [place] [address] Nj Ospina MD [address] [place] [address] Social History Tobacco Use Types Packs/Day Years Used Date Smoking Tobacco: Never Passive Smoke Exposure: Never Smokeless Tobacco: Never Alcohol Answer Date Recorded How often do you have a drink containing alcohol ? 1 06/03/2022 How many drinks containing a lcohol do you have on a typical day when you are drinking? 1 06/03/2022 How often do you have six or more drinks on one occasion? 0 06/03/2022 Depression Answer Date Recorded Patient Health Questionnaire-9 Score 2 06/03/2022 Depression Answer Date Recorded Patient Health Questionnaire-2 Score 0 06/03/2022 Comments Unknown Sex and Gender Information Value Date Recorded Sex Assigned at Female 04/20/2022 10:32 AM EDT Legal Sex Female 10:32 AM EDT Gender Identity Female 04/20/2022 10:32 AM EDT Sexual Orientation Choose not to disclose 2021 10:32 AM EDT COVID-19 Exposure Response Date Recorded In the last 10 days, have yo u been in contact with someone who was confirmed or suspected to have Coronavirus/COVID-19? No / Unsure 08/05/2022 11:56 AM EST documented as of this encounter Plan of Treatment Upcoming Encounters Date Type Department Care Team (Late st Contact Info) Description 08/01/2024 2:15 PM EST Office Visit [facility] OPTOMETRY [address] [place] [address] Arrived documented as of this encounter Visit Diagnoses Not on filedocumented in this encounter Additional Health Concerns Assessment Noted Time PHQ-9 Depression Total Score: 2 06/03/20 22 10:05 AM EST documented as of this encounter Care Teams Route Aide Relationship Specialty Start Date End Date Arpita Edmonds MD [address] [place] [address] PCP - General Family Medicine 01/28/18 documented as of this encounter
--- OUTSIDE RECORDS SUMMARY | 2024-08-01 12:51 | XMS_ITS | Encounter Summary ---
Author Organization [employer] Address [address] 7t [place] [address] Care Team Providers Care Ethylene Compressor Operator Name Role Phone Arpita Edmonds MD Primary Care Provider [phone] Encounter Details Date Type Department Care Team (Latest Contact Info) Description 07/04/2024 Travel Social History Tobacco Use Types Packs/Day [...] Description 08/01/2024 2:15 PM EST Office Visit [facility] OPTOMETRY [address] [place] [address] Arrived documented as of this encounter Visit Diagnoses Not on filedocumented in this encounter Additional Health Concerns Assessment Noted Time PHQ-9 Depression Total Score: 2 06/03/20 22 10:05 AM EST documented as of this encounter Care Teams Ethylene Compressor Operator Relationship Specialty Start Date End Date Arpita Edmonds MD [address] [place] [address] PCP - General Family Medicine 01/28/18 documented as of this encounter
--- OUTSIDE RECORDS SUMMARY | 2024-08-01 12:51 | XMS_ITS | Encounter Summary ---
Author Organization [employer] Address [address] [facility] 7[address] [place] [address] Care Team Providers Care Skelp Processor Name Role Phone Arpita Edmonds MD Primary Care Provider [phone] Encounter Details Date Type Department Care Team ([facility] st Contact Info) Description 07/04/2024 1:45 PM EST Office Visit [facility] [address] [place], [place] [phone] TarkaMaricarmen, OD [address] [place] [address] Optic papillitis of both eyes (Primary Dx) Social History Tobacco Use Types [...] AM EDT documented as of this encounter Progress Notes * Maricarmen Smiley, OD - 07/04/2024 1:45 PM EST Eye Care Progress Note Patient ID: Td Mayer is a 38 y.o. female. HPI Patient present for doctor directed visual field f/u for suspected IIH. Patient presented on 06/19/24 with optic nerve edema both eyes (OU) and had an urgent MRI completed. Last edited by Maricarmen Smiley, OD on 07/04/2024 3:43 PM. Current Outpatient Medications Medication Sig Dispense Refill acetaminophen (Tylenol Extra Strength) 500 MG tablet Take 1 tablet (500 mg) by mouth every 6 (six) hours if needed for mild pain for up to 10 days. 30 tablet 0 acetaminophen (Tylenol) 500 MG tablet Take 2 tablets by mouth in the morning and 2 tablets at noon and 2 tablets in the evening and 2 tablets before bedtime. ascorbic acid (Vitamin C) 250 MG tablet Take 2 tablets (500 mg) by mouth in the morning. 90 tablet 1 Blood Pressure kit Check BP daily 1 kit 0 Blood Pressure Monitor kit 1 Device in the morning. 1 kit 0 cholecalciferol (Vitamin D-3) 50 MCG (2000 UT) capsule Take 1 capsule (50 mcg) by mouth in the morning. (Patient not taking: Reported on 03/26/2023) 90 capsule 3 clonazePAM (KlonoPIN) 0.5 MG tablet Take 1 tablet (0.5 mg) by mouth 2 times daily. 20 tablet 0 cyclobenzaprine (Flexeril) 5 MG tablet Take 1 tablet (5 mg) by mouth if needed at bedtime for muscle spasms for up to 10 days. 10 tablet 0 dextromethorphan-guaiFENesin (Tussin DM) 10-100 MG/5ML liquid Take 5 mL by mouth every 4 (four) hours if needed for cough for up to 10 days. 180 mL 0 Diclofenac Sodium 1 % gel To apply to the affected area 3 times a day 100 g 0 ergocalciferol (Vitamin D-2) 1.25 MG (13426 UT) capsule Take 1 capsule by mouth once a week. ferrous gluconate (Fergon) 324 (37.5 Fe) MG tablet TAKE ONE TABLET DAILY WITH BREAKFAST 90 tablet 1 ferrous sulfate (FerrouSul) 325 (65 Fe) MG tablet TAKE 1 TABLET BY ORAL ROUTE 2 TIMES EVERY DAY 60 tablet 2 fluticasone (Flonase) 50 MCG/ACT nasal spray Administer 1 spray into each nostril in the morning. Shake gently. Before first use, prime pump. After use, clean tip and replace cap. 48 mL 1 HPV 9-valent (Gardasil 9) suspension prefilled syringe vaccine prefilled syringe apply IM as scheduled hydrocortisone 2.5 % cream Apply pea sized amount to skin bid for 1 week 15 g 0 hydrOXYzine pamoate (Vistaril) 25 MG capsule TAKE ONE CAPSULE EVERY 6 HOURS NEEDED FOR ANXIETY 30 capsule 3 ibuprofen 800 MG tablet Take 1 tablet (800 mg) by mouth every 8 (eight) hours if needed for moderate pain. 24 tablet 1 ipratropium (Atrovent) 0.06 % nasal spray 2 sprays each nostril bid prn rhinorrhea, german 15 mL 0 loratadine (Claritin) 10 MG tablet Take 1 tablet by mouth if needed each day. petrolatum hydrophilic-aloe vera (Aloe Lathrop) ointment Apply topically if needed in the morning andat bedtime for wound care. 56 g 0 prazosin (Minipress) 2 MG capsule TAKE TWO CAPSULES EVERY NIGHT AT BEDTIME NEEDED Vit-Fe Fumarate-FA ( Vitamin) 27-0.8 MG tablet Take 1 tab orally daily 30 tablet 11 Spacer/Aero-Holding Chambers (OptiChamber Marita) misc 1 each every 4 (four) hours if needed (asthma). 1 each 0 Ventolin HFA 108 (90 Base) MCG/ACT inhaler INHALE TWO PUFFS EVERY 4 HOURS NEEDED FOR WHEEZING ORSHORTNESS OF BREATH 18 g 1 verapamil SR (Calan SR) 120 MG ER tablet Take 1 tablet (120 mg) by mouth at bedtime. Do not crush or chew. 30 tablet 11 No current facility-administered medications for this visit. No past medical history on file. Past Surgical History: Procedure Laterality Date BELT ABDOMINOPLASTY BREAST SURGERY augmentation HERNIA REPAIR TUBAL LIGATION No family history on file. Tobacco Use: Medium Risk (06/30/2024) Tobacco Smoking Tobacco Use: Former Smokeless Tobacco Use: Never Passive Exposure: Never Allergies Allergen Reactions Sulfa Antibiotics Palpitations ROS Positive for: Neurological, Eyes Negative for: Constitutional, Gastrointestinal, Skin, Genitourinary, Musculoskeletal, HENT, Endocrine, Cardiovascular, Respiratory, Psychiatric, Allergic/Imm, Heme/Lymph Last edited by Maricarmen Smiley, JULIO on 07/04/2024 3:43 PM. Base Eye Exam Visual Acuity (Snellen - Linear) Right Left Dist cc 20/20 -3 20/20 -3 Tonometry (iCare , 3:43 PM) Right Left Pressure 15 16 Pupils Pupils APD Right PERRL None Left PERRL None Visual Hood (Counting fingers) Left Right Full Full Extraocular Movement Right Left Full Full Neuro/Psych Oriented x3: Yes Mood/Affect: Normal Slit Lamp and Fundus Exam External Exam Right Left External Normal Normal Slit Lamp Exam Right Left Lids/Lashes Clean and clear Clean and clear Conjunctiva/Sclera White and quiet White and quiet Cornea 2mm scar inferiorly to visual axis Clear Anterior Chamber Deep and quiet, angles open Deep and quiet, angles open Iris Flat, round Flat, round Lens Clear Clear Fundus Exam Right Left Vitreous Clear Clear Disc Elevated disc with indistinct margins 360, (+) obscuration of blood vessels, (+) patons folds nasally Elevated disc with indistinct margins worse temporally than nasally, (+) obscuration of blood vessels C/D Ratio Vertical 0.05 0.05 C/D Ratio Horizontal 0.05 0.05 Assessment and Plan Diagnoses and all orders for this visit: Optic papillitis of both eyes - Elevated optic nerve with indistinct margins both eyes (OU) - Need to rule out intracranial hypertension - Patient symptomatic for headaches, although she reports that headaches have reduced in frequency lately. Patient denies pulsatile tinnitus or orthostatic hypotension - MRI of brain and orbits completed 06/19/24: empty sella sign and prominence of cerebrospinal fluid (CSF) adjacent to optic nerves, otherwise unremarkable - Referral placed to neurology for lumbar puncture - appt scheduled for 08/08/24 - Visual field done today: WNL right eye (OD)/left eye (OS) - Automated Visual Field, Extended - OU - Both Eyes RTC 6 months for f/u or sooner PRN Maricarmen Smiley, OD 07/04/2024, 3:53 PM Cnc Operator Machinist Source: __ None __ Bilingual Staff __ Qualified Staff Pump Assembler __ Telephone Cnc Operator Machinist; ID# __ Cnc Operator Machinist brought by patient (family member, friend, STUDIO CAMERA OPERATOR, etc) __ In person tongue stitcher __ Ipad Cnc Operator Machinist; ID#: Language Spoken During Exam: Luxembourger documented in this encounter Plan of Treatment Upcoming Encounters Date Type Department Care Team (Late st Contact Info) Description 08/01/2024 2:15 PM EST Office Visit [facility] [address] [place] [phone] Arrived documented as of this encounter Procedures Procedure Name Priority Date/Time Associated Diagnosis Comments AUTOMATED VISUAL FIELD, EXTENDED - OU - BOTH EYES Routine 07/04/2024 3:50 PM EST Optic papillitis of both eyes documented in this encounter Results * Automated Visual Field, Extended - OU - Both Eyes (07/04/2024 3:50 PM EST) Maricarmen Cruz, OD - 07/04/2024 3:50 PM EST VISUAL [...] Smiley OD OPHTH VISUAL FIELD Final Result documented in this encounter Visit Diagnoses Diagnosis Optic papillitis of both eyes- Primary documented in this encounter Additional Health Concerns Assessment Noted Time PHQ-9 Depression Total Score: 2 06/03/20 22 10:05 AM EST documented as of this encounter Care Teams Skelp Processor Relationship Specialty Start Date End Date Arpita Edmonds MD [address] [place] [id number] PCP - General Family Medicine 01/28/18 documented as of this encounter
[2024-08-01 13:15] LABS: MANUAL DIFF FLAG NO
[2024-08-01 13:20] LABS: Basophils Percent Auto 0.5 % (0-2); Eosinophils Absolute Auto 0.1 X10*3/uL (0.0-0.4); Eosinophils Percent Auto 1.5 % (0-4); Hematocrit 37.2 % (37.0-47.0); Imm Gran Abs Auto 0.02 X10*3/uL (0.00-0.03); Imm Gran Pct Auto 0.3 % (0.0-0.4); Lymphocytes Percent Auto 26.4 % (20-40); Mean Corpuscular HGB Conc 32.3 g/dl (31.0-35.0); Mean Platelet Volume 12.2 fL (9.4-12.3); Monocytes Absolute Auto 0.8 X10*3/uL (0.1-1.2); Monocytes Percent Auto 10.4 % (2-11); Neutrophils Absolute Auto 4.5 x10*3/uL (2.0-8.3); Neutrophils Percent Auto 60.9 % (45-73); Platelet Count 245 X10*3/uL (160-400); White Blood Count 7.4 X10*3/uL (4.8-10.8)
[2024-08-01 14:14] LABS: HCG Quantitative 329 mIU/mL
[2024-08-01 15:08] LABS: CT PCR NOT DETECTED (Not Detect.); NG PCR NOT DETECTED (Not Detect.)
== END 2024-08-01 11:16 | disposition home or self-care (01) ==
LOC: HO.HHCL 11:15
PROVIDERS: Internal Medicine; Visit Provider Advanced Practice Midwife
DX: N76.0 Acute vaginitis (principal); Z3A.01 Less than 8 weeks gestation of pregnancy; R53.83 Other fatigue
CPT/HCPCS: 36415; 84702; 85025; 87491; 87591

== ENCOUNTER 2024-08-03 10:41 | Outpatient (REF) | payer MEDICAID, SELFPAY ==
--- OUTSIDE RECORDS SUMMARY | 2024-08-03 11:24 | XMS_ITS | Encounter Summary ---
Author Organization [employer] Address [address] [facility] [address] [place] [address] Care Team Providers Care Card Brusher Name Role Phone Arpita Edmonds MD Primary Care Provider [phone] Encounter Details Date Type Department Care Team ([facility] st Contact Info) Description 02/08/2024 Telephone [facility] [address] [place] [address] Arpita Edmonds MD [address] [place], [place] [phone] Social History Tobacco Use Types Packs/Day Years [...] Care Team (Late st Contact Info) Description 08/03/2024 3:45 PM EST Telemedicine [facility] [address] [place] [address] Arpita Edmonds MD [address] [place] [address] documented as of this encounter Visit Diagnoses Not on filedocumented in this encounter Additional Health Concerns Assessment Noted Time PHQ-9 Depression Total Score: 2 06/03/20 22 10:05 AM EST documented as of this encounter Care Teams Card Brusher Relationship Specialty Start Date End Date Arpita Edmonds MD [address] [place] [address] PCP - General Family Medicine 01/28/18 documented as of this encounter
--- OUTSIDE RECORDS SUMMARY | 2024-08-03 11:24 | XMS_ITS | Encounter Summary ---
Author Organization [employer] Address [address] [place] [address] 7t [place] [address] Care Team Providers Care Healthcare Administration Internship Name Role Phone Arpita Edmonds MD Primary Care Provider [phone] Reason for Referral * Consultation (STAT) - Closed Specialty Diagnoses / Procedures Referred By Paul luna Referred To Contact Obstetrics and Gynecology Diagnoses Less than 8 weeks gestation of Janice Mota CNM [address] [place] [address] Phone: tel: [facility] [address] [place] [address] Phone: tel: fax: Referral ID Status Reason Start Date Expiration Date V isits Requested Visits Authorized [id number] Closed Specialty Services Required 08/01/2024 08/01/2025 1 1 Encounter Details Date Type Department Care Team (Late st Contact Info) Description 08/01/2024 11:15 AM EST Office Visit [facility] [address] [place] [phone] Janice Mota CNM [address] [place], [place] [phone] Less than 8 weeks gestation of (Primary [...] a 38 y.o. 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 Recent visit at [facility] for abdominal pain, early . Hcg 88 on 07/30, advised to followup with [facility]. No ultrasound done. LMP 07/01/2024. Had IVF in [facility] 07/19/2024. Feels well other than some mild [...] she has progesterone from fertility specialist in [facility], needs rx. Rx sent in. Seek care [...] tab orally daily documented in this encounter Miscellaneous Notes * Result Encounter Note - Janice Mota CNM - 08/01/2024 11:15 AM EST Please let Td know her hormone (hcg) has risen appropriately. This is good news! We can repeat in 2 days as precaution. It is too early to see much of anything on ultrasound but if shehas pelvic pain or bleeding, she should go to ER. I referred her to [facility] for further care. Let us know if not contacted about appointment in the next week. Thanks! documented in this encounter Plan of Treatment Upcoming Encounters Date Type Department Care Team ([facility] st Contact Info) Description 08/03/2024 3:45 PM EST Telemedicine [facility] [address] [place], [place] [phone] Arpita Edmonds MD [address] [place] [address] Scheduled Referrals Name Type Priority Associated Diagnoses Order Schedule Referral to Obstetrics / Gynecology Outpatient Referral STAT Less than 8 weeks gestation of Expected: 08/01/2024 (Approximate), Expires: 08/01/2025 documented as of this encounter Procedures Procedure Name Priority Date/Time Associated Diagnosis Comments HCG, TOTAL, QN Routine 08/01/2024 11:19 AM EST Less than 8 weeks gestation of documented in this encounter Results * hCG, Total, Quantitative (08/01/2024 11:19 AM EST) HCG Quantitative 329 mIU/mL [facility] Comment:Weeks post LMP Appr oximate hCG(Last Menstrual Period) Range (mIU/ml)3 - 4 weeks 9 - 1304 - 5 weeks 75 - 2,6005 - 6 weeks 850 - 20,8006 - 7 weeks 4000 - 100,2007 - 12 weeks 11,500 - 289,20028 - 16 weeks 18,300 - 137,38377 - 29 weeks (2nd trimester) 1,400 - 53,89624 - 41 weeks (3rd trimester) 940 - 60,000The Zambrano B-hCG assay is used for the early detection ofpregnancy; it cannot be used to diagnose any conditionunrelated to . If a B-hCG level is not supportedby the clinical evidence, results should be confirmed by analternative method (qualitative urine hCG, for example). Blood Venous blood specimen / Unknown 08/01/2024 11:19 AM EST 08/01/2024 1:12 PM EST us Janice Mota [facility] BLOOD ORDERABLES Leah l Result [facility] [address] [place], [place] [phone] documented in this encounter Visit Diagnoses Diagnosis Less than 8 weeks gestation of - Primary documented in this encounter Additional Health Concerns Assessment Noted Time PHQ-9 Depression Total Score: 2 06/03/20 22 10:05 AM EST documented as of this encounter Care Teams Healthcare Administration Internship Relationship Specialty Start Date End Date Arpita Edmonds MD [address] [place] [phone] PCP - General Family Medicine 01/28/18 documented as of this encounter
--- OUTSIDE RECORDS SUMMARY | 2024-08-03 11:24 | XMS_ITS | Encounter Summary ---
Author Organization [employer] Address [address] [place] [address] Care Team Providers Care Directory Compiler Name Role Phone Arpita Edmonds MD Primary Care Provider [phone] Encounter Details Date Type Department Care Team [...] Info) Description 08/03/2024 3:45 PM EST Telemedicine [facility] [address] [place] [address] Arpita Edmonds MD [address] [place] [address] documented as of this encounter Visit Diagnoses Not on filedocumented in this encounter Additional Health Concerns Assessment Noted Time PHQ-9 Depression Total Score: 2 06/03/20 22 10:05 AM EST documented as of this encounter Care Teams Directory Compiler Relationship Specialty Start Date End Date Arpita Edmonds MD [address] [place] [address] PCP - General Family Medicine 01/28/18 documented as of this encounter
--- OUTSIDE RECORDS SUMMARY | 2024-08-03 11:24 | XMS_ITS | Encounter Summary ---
Author Organization [employer] Address [address] [facility] [address] [address] [place] [address] Care Team Providers Care Tool Dispatcher Name Role Phone Arpita Edmonds MD Primary Care Provider [phone] Encounter Details Date Type Department Care Team [...] Info) Description 08/03/2024 3:45 PM EST Telemedicine [facility] [address] [place] [address] Arpita Edmonds MD [address] [place] [address] documented as of this encounter Visit Diagnoses Not on filedocumented in this encounter Additional Health Concerns Assessment Noted Time PHQ-9 Depression Total Score: 2 06/03/20 22 10:05 AM EST documented as of this encounter Care Teams Tool Dispatcher Relationship Specialty Start Date End Date Arpita Edmonds MD [address] [place] [address] PCP - General Family Medicine 01/28/18 documented as of this encounter
--- OUTSIDE RECORDS SUMMARY | 2024-08-03 11:24 | XMS_ITS | Clinical Summary ---
Author Organization [employer] Address [address] [place] [address] 7[address] [place] [address] Care Team Providers Care Hub Cutter Apprentice Name Role Phone Arpita Edmonds MD Primary Care Provider [phone] Allergies Active Allergy Reactions Criticality Noted Date Comments Sulfa Antibiotics Palpitations High 05/25/2017 Medications acetaminophen (Tylenol) 500 MG tablet Take 2 tablets by mouth in the morning and 2 tablets at noon and 2 tablets in the evening and 2 tablets before bedtime. 12/12/19 22 Active ergocalciferol (Vitamin D-2) 1.25 MG (00969 UT) capsule Take 1 capsule by mouth [...] 24 Active petrolatum hydrophilic-tony e vera (Aloe [place]) ointmentIndicat ions:Skin rash Apply topically if needed [...] 2 sprays each nostril bid prn rhinorrhea, barbadian 15 mL 05/09/20 24 Active Ventolin HFA [...] Encounters Date Type Department Care Team Description 08/02/2024 Telephone [facility] [address] [place] [phone] Arpita Edmonds MD Medication Question 08/01/2024 2:15 PM EST Office Visit [facility] [address] [place] [phone] AlfaSaen, OD Hypermetropia, bilateral (Primary Dx) 08/01/2024 11:15 AM EST Office Visit [facility] [address] [place] [address] Kimberlee Khoury CNM Less than 8 weeks gestation of (Primary Dx) 08/01/2024 Telephone [facility] [address] [place] [address] Kimberlee Khoury CNM Results 08/01/2024 Orders Only [address] [address] Kimberlee Khoury CNM Less than 8 weeks gestation of (Primary Dx) 08/01/2024 Patient Outreach [facility] [address] [place] [address] Arpita Edmonds MD Care Coordination (Outreach) 08/01/2024 Travel 07/31/[address] [address] Ольга Fagan, RN Record Request 07/25/2024 Travel 07/24/2024 Telephone [facility] [address] [place] [address] Arpita Edmonds MD Appointment Request 07/19/2024 Telephone [facility] [address] [place] [address] Arpita Edmonds MD 07/04/2024 1:45 PM EST Office Visit [facility] [address] [place], [place] [phone] Sherice Maricarmen, OD Optic papillitis of both eyes (Primary Dx) 07/04/2024 Travel 06/30/2024 2:20 PM EST Office Visit [facility] [address] [place] [address] Oz Ballesteros MD Viral URI (Primary Dx) 06/30/2024 Travel 06/30/2024 Telephone [facility] [address] [place] [address] Arpita Edmonds MD Nurse Triage 06/28/2024 10:40 AM EST Office Visit [facility] [address] [place] [address] Justine Martínez MD Cervical paraspinal muscle spasm (Primary Dx); 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/28/2024 Travel 06/27/2024 Telephone [facility] [address] [place] [address] Arpita Edmonds MD Nurse Triage 06/26/2024 Telephone [facility] [address] [place] [address] Nj Ospina MD 06/26/2024 Refill [facility] [address] [place] [address] Arpita Edmonds MD 06/26/2024 Orders Only [facility] [address] [place] [address] Nj Ospina MD Abnormal finding on MRI of brain (Primary Dx) 06/20/2024 Orders Only [facility] [address] [place] [address] Arpita Edmonds MD Empty sella turcica ([facility]) (Primary Dx); Papilledema 06/20/2024 Telephone [facility] [address] [place] [address] Maricarmen Smiley, OD 06/19/2024 11:15 AM EST Office Visit [facility] [address] [place] [address] Maricarmen Smiley, OD Optic papillitis of both eyes (Primary Dx); Hypermetropia, bilateral; Corneal scar, right eye 06/19/2024 Orders Only GENERIC EXTERNAL DATA DEPARTMENT Provider, Generic External Data 06/19/2024 Telephone [facility] [address] [place] [address] Arpita Edmonds MD Referral 06/19/2024 Travel 06/09/2024 Travel 05/16/2024 Telephone [facility] [address] [place] [address] Lisa Belcher, RN Results 05/16/2024 Telephone [facility] [address] [place] [address] Maggy Thompson, ROBINSON Results 05/16/2024 Orders Only [facility] [address] [place] [address] Oz Ballesteros MD Candidiasis of female genitalia (Primary Dx) 05/16/2024 Refill [facility] [address] [place] [address] Arpita Edmonds MD Influenza-like symptoms 05/15/2024 6:20 PM EST Office Visit [facility] [address] [place] [address] Oz Ballesteros MD Infertility associated with anovulation (Primary Dx); Acute vaginitis 05/15/2024 Travel 05/15/2024 Telephone [facility] [address] [place] [address] Kimberlee Khoury CN 05/09/2024 11:20 AM EST Office Visit [facility] [address] [address] Kate Ware MD Acute frontal sinusitis, recurrence not specified (Primary Dx); Respiratory infection 05/09/[address] [address] Arpita Edmonds MD Nurse Triage 05/08/2024 Refill [facility] [address] [place] [address] Arpita Edmonds MD 05/07/2024 Refill [facility] [address] [place] [address] Arpita Edmonds MD from Last 3 Months [...] is your housing situation today? I have albertomatt clarke 04/05/[address] you [...] Info) Description 08/03/2024 3:45 PM EST Telemedicine [facility] [address], [place] [phone] Arpita Edmonds MD [address] [place], [place] [phone] Health Maintenance Due Date Last Done Comments [...] EST Less than 8 weeks gestation of CBC WITH AUTO DIFFERENTIAL Routine 08/01/2024 11:19 AM EST Other fatigue CHLAMYDIA/N. GONORRHOEAE RNA, TMA, UROGENITAL Routine 08/01/2024 11:19 AM EST Acute vaginitis AUTOMATED VISUAL FIELD, EXTENDED - OU - [...] ESTABLISHED PATIENT Routine 09/02/2021 12:00 AM EDT INTRAORAL - COMPLETE SERIES OF RADIOGRAPHIC IMAGES Routine 02/11/2018 12:00 AM EDT from Last 3 Months or Most Recently Relevant to Health Maintenance Results * (ABNORMAL) CBC auto differential (08/01/2024 11:19 AM EST) Only the most recent of2 resultswithin the time period is included. White Blood Count 7.4 4.8 - 10.8 X10*3/uL [facility] Red Blood Count 4.00(L) 4.20 - 5.50 X10*6/uL [facility] Hemoglobin 12.0 12.0 - 16.0 g/dl [facility] Hematocrit 37.2 37.0 - 47.0 % [facility] Mean Corpuscular Volume 93.0 80.0 - 98.0 fL [facility] Mean Corpuscular Hemoglobin 30.0 27.0 - 33.0 pg [facility] Mean Corpuscular HGB Conc 32.3 31.0 - 35.0 g/dl [facility] Red Cell Distribution Width 14.0 11.0 - 16.0 % [facility] Platelet Count 245 160 - 400 X10*3/uL [facility] Mean Platelet Volume 12.2 9.4 - 12.3 fL [facility] Neutrophils Percent Auto 60.9 45 - 73 % [facility] Imm Gran Pct Auto 0.3 0.0 - 0.4 % [facility] Lymphocytes Percent Auto 26.4 20 - 40 % [facility] Monocytes Percent Auto 10.4 2 - 11 % [facility] Eosinophils Percent Auto 1.5 0 - 4 % [facility] Basophils Percent Auto 0.5 0 - 2 % [facility] NRBC Pct Auto 0.0 0.0 - 0.2 /100WBC [facility] Neutrophils Absolute Auto 4.5 2.0 - 8.3 x10*3/uL [facility] Imm Gran Abs Auto 0.02 0.00 - 0.03 X10*3/uL [facility] Lymphocytes Absolute Auto 2.0 1.2 - 4.9 X10*3/uL [facility] Monocytes Absolute Auto 0.8 0.1 - 1.2 X10*3/uL [facility] Eosinophils Absolute Auto 0.1 0.0 - 0.4 X10*3/uL [facility] Basophils Absolute Auto 0.0 0.0 - 0.2 X10*3/uL [facility] NRBC Abs Auto 0.000 0.0 - 0.012 X10*3/uL [facility] Blood Venous blood specimen / Unknown 08/01/2024 11:19 AM EST 08/01/2024 1:12 PM EST us Oz Ballesteros MD LAB BLOOD ORDERABLES Final Result [facility] [address] [place] [phone] * Chlamydia/N. Gonorrhoeae RNA, TMA, Urogenitial (08/01/2024 11:19 AM EST) Only the most recent of2 resultswithin the time period is included. CT PCR NOT DETECTED Not Detect. [facility] Comment:A not detected test result does [...] psychologicalconsequences. NG PCR NOT DETECTED Not Detect. [facility] Comment:A not detected test result does [...] to adverse medical, social or psychologicalconsequences. Swab (Vaginal Swab) 08/01/2024 11:19 AM EST 08/01/2024 1:33 PM EST Narrative [facility] - 08/01/2024 3:08 PM EST Urine us Oz Ballesteros MD LAB MICROBIOLOGY - GENERAL ORDERABLES Final Result [facility] [address] [place] [phone] * hCG, Total, Quantitative (08/01/2024 11:19 AM EST) HCG Quantitative 329 mIU/mL [facility] Comment:Weeks post LMP Appro ximate hCG(Last Menstrual Period) Range (mIU/ml)3 - 4 weeks 9 - 1304 - 5 weeks 75 - 2,6005 - 6 weeks 850 - 20,8006 - 7 weeks 4000 - 100,2007 - 12 weeks 11,500 - 289,79530 - 16 weeks 18,300 - 137,55538 - 29 weeks (2nd trimester) 1,400 - 53,03867 - 41 weeks (3rd trimester) 940 - 60,000The Zambrano B- hCG assay is used for the early detection ofpregnancy; it cannot be used to diagnose any conditionunrelated to . If a B-hCG level is not supportedby the clinical evidence, results should be confirmed by analternative method (qualitative urine hCG, for example). Blood Venous blood specimen / Unknown 08/01/2024 11:19 AM EST 08/01/2024 1:12 PM EST Kimberlee Khoury [facility] LAB BLOOD ORDERABLES Leah l Result [facility] [address] [place] [phone] * Automated Visual Field, Extended - OU [...] repeat. Management Plan: Monitor in 6 months Maricarmen Smiley OD OPHTH VISUAL FIELD Final Result * MR Orbit Face Neck w/ and w/o Contrast (06/19/2024 6:33 PM EST) Anatomical Region Laterality Modality Head, Neck Magnetic Resonan ce 06/19/2024 6:33 PM EST Narrative 06/19/2024 6:35 PM EST ? [facility] ?[address] ?[place] [address] ? Magnetic Resonance Report ? Signed with Addenda ? Patient: Brown Mayer,Sujeily ?MR#: ?? [id number] ? : 1985 ?Acct:[id number] ? Age/Sex: 38 / F ?ADM Date: 12/30/24 ? Loc: HO.ED ? Attending Dr: ? Ordering Physician: David Watson ?? Date of Service: 06/19/24 ?? Procedure(s): MR orbits face neck wo/w con ?? Accession Number(s): [id number] ? cc: Arpita Edmonds MD; David Watson [...] MD in OV> ?06/19/24 1834 ? DD/ 183 ? TD/TT: 06/19/24 1833 ? Production Recovery Operator: ? Procedure Note Jerome Russ - 06/19/[address] [address] Magnetic Resonance Report Signed with Addenda Patient: Td LoyaMR#: [id number] : 1985Acct:[id number] Age/Sex: 38 / FADM Date: 06/19/24 Loc: HO.ED Attending Dr: Ordering Physician: David Watson Date of Service: 06/19/24 Procedure(s): MR orbits face neck wo/w con Accession Number(s): [id number] cc: Arpita Edmonds MD; David Watson ADDENDUM [...] <Electronically signed by MD Rahel in OV> 06/19/241840 Addendum Cosigned By: DD/ TD/TT: 06/19/24 CLINICAL [...] document has been electronically signed by: Darrell Clifotn MD on 06/19/2024 18:33:39 Dictated By: Triston Miguel MD Signed By: <Electronically signed by Triston Miguel MD in OV> 06/19/241833 DD/ 32 TD/TT: 06/19/241832 Production Recovery Operator: [facility] External Provider IMG MRI PROCEDURES Edited Result - Final * Mr Brain w/ and w/o Contrast (06/19/2024 6:22 PM EST) Anatomical Region Laterality Modality Brain Magnetic Resonan ce 06/19/2024 6:22 PM EST Narrative 06/19/2024 6:25 PM EST ? [facility] ?[address] ?[place] [address] ? Magnetic Resonance Report ? Signed with Addenda ? Patient: Brown Mayer,Sujeily ?MR#: ?? [id number] ? : 1985 ?Acct:[id number] ? Age/Sex: 38 / F ?ADM Date: 06/19/24 ? Loc: HO.ED ? Attending Dr: ? Ordering Physician: David Watson ?? Date of Service: 06/19/24 ?? Procedure(s): MR head/brain wo/w con ?? Accession Number(s): [id number] ? cc: Arpita Edmonds MD; David Watson [...] OV> ?06/26/241715 ?? Addendum Cosigned By: ? DD/ ? TD/TT: 06/26/2412/13/1714 ? CLINICAL HISTORY: Papilledema [...] signed by Triston Miguel MD in OV> ?06/19/241823 ? DD/ 182 ? TD/TT: 06/19/24 1822 ? Production Recovery Operator: ? Procedure Note Donotuseinterpreter, Image - 06/26/[address] [address] Magnetic Resonance Report Signed with Cristal Patient: Td LoyaMR#: [id number] : 1985Acct:[id number] Age/Sex: 38 / FADM Date: 06/19/24 Loc: HO.ED Attending Dr: Ordering Physician: David Watson Date of Service: 06/19/24 Procedure(s): MR head/brain wo/w con Accession Number(s): [id number] cc: Arpita Edmonds MD; David Watson ADDENDUM [...] in OV> 06/19/241823 DD/ 21 TD/TT: 06/19/241821 Production Recovery Operator: [facility] External Provider IMG MRI PROCEDURES Edited Result - Final * (ABNORMAL) Basic Metabolic Panel (06/19/2024 3:18 PM EST) Sodium 140 135 - 145 mmol/L [facility] Potassium 3.8 3.3 - 5.1 mmol/L [facility] Chloride 107 96 - 108 mmol/L [facility] Carbon Dioxide 27 22 - 29 mmol/L [facility] Anion Gap 10(L) 12 - 20 [facility] Urea Nitrogen (BUN) 10 9 - 16 mg/dL [facility] Creatinine, Serum 0.66 0.5 - 1.4 mg/dL [facility] Creatinine Clr Calc Pharmacy 132.9 [facility] Comment:Provided height and weight: 170.18 cm,91.6 kg.eGFR (calculated from the MDRD study equation) and eCrCl(calculated from the Cockcroft-Gault equation) are based ondifferent parameters and may not yield comparable results.If eCrCl result is absurd, please check patient'sheight/weight. Estimated Glomerular Filt Rate >60 [facility] Comment:Chronic Kidney Disea se: Estimated GFR < 60 mL/min/1.66l6Unsuil Kidney Disease: Estimated GFR < 15 mL/min/1.73m2 Glucose 109 60 - 115 mg/dL [facility] Calcium 8.7 8.4 - 10.2 mg/dL [facility] 06/19/2024 3:18 PM EST 06/19/2024 3:20 PM EST Generic External Data Provider LAB BLOOD ORDERAB LES Final Result [facility] [address] [place] [phone] * OCT, Optic Nerve - OU [...] Bacterial Vaginosis Panel (05/15/2024 6:30 PM EST) TRICHOMONAS VAGINALIS DETECTION BY PCR NOT DETECTED Not Detect [facility] BACTERIAL VAGINOSIS DETECTION BY PCR NEGATIVE Negative [facility] Comment:The BV organism targ ets of [...] GROUP DETECTION BY PCR DETECTED(A) Not Detect [facility] Wen glab krusei PCR NOT DETECTED Not Detect [facility] Swab Vaginal structure / Unknown 05/15/2024 6:30 PM EST 05/16/2024 11:51 AM EST us Oz Ballesteros MD LAB MICROBIOLOGY - GENERAL ORDERABLES Final Result Performing Organization Address [facility]/ZIP Co de Phone Number [facility] [address] [place] [phone] * Influenza B (ID NOW Rapid Molecular) (05/09/2024 11:19 AM EST) Pathologist [facility] Influenza B Negative Negative, Indeterminate [facility] Swab 05/09/2024 11:1 9 AM EST Kate Ware MD POINT OF CARE TEST ENTER/E DIT ORDERABLES Final Result Performing Organization Address [facility] Co de Phone Number [facility] [address] [place] [phone] * Influenza A (ID NOW Rapid Molecular) (05/09/2024 11:19 AM EST) Pathologist [facility] Influenza A Negative Negative, Indeterminate [facility] Swab 05/09/2024 11:1 9 AM EST Kate Ware MD POINT OF CARE TEST ENTER/E DIT ORDERABLES Final Result Performing Organization Address [facility] Co de Phone Number [facility] [address] [place] [phone] * POCT Rapid COVID Ag (05/09/2024 11:19 AM EST) Rapid COVID Ag Negative [facility] Swab 05/09/2024 11:1 9 AM EST Kate Ware MD POINT OF CARE TEST ENTER/E DIT ORDERABLES Final Result Performing Organization Address [facility] Co de Phone Number [facility] [address] [place] [phone] * HIV-1/2 Antigen and Antibodies, Fourth Generation, with Reflexes (10/05/2023 4:27 PM EDT) HIV AB/AG Nonreactive Nonreactive [facility] Comment:HIV-1 p24 Ag and/or HIV-1/HIV-2 Ab not detected.A test result that is nonreactive does not exclude thepossibility of exposure to or infection with HIV-1 and/orHIV-2. Nonreactive results in this assay for individualswith prior exposure to HIV-1 and/or HIV-2 may be due toantigen and antibody levels that are below the limit ofdetection of this assay.The ServiceNow HIV Ag/Ab Combo assay result andsupplemental assay results should be interpreted inconjunction with the patient's clinical presentation,history and other laboratory results. If the results areinconsistent with clinical evidence, additional testing issuggested to confirm the result. Blood Venous blood specimen / Unknown 10/05/2023 4:27 PM EDT 10/05/2023 5:27 PM EDT us Oz Ballesteros MD LAB BLOOD ORDERABLES Final Result [facility] [address] [place] [address] [phone] * HPV mRNA E6/E7 w/Reflex to HPV Genotypes 16, 18/45 (07/27/2023 2:46 PM EST) Pathologist [facility] HPV nRNA E6/E7 Not Detected Not Detected [facility] Comment:Methodology: Transcr iption-Mediated AmplificationThis assay detects E6/E7 viral messenger RNA (mRNA) from 14high-risk HPV types (16,18,31,33,35,39,45,51,52,56,58,59,66,68).Cervical sources are required for HPV testing.If a vaginal source from a patient who has had atotal hysterectomy with removal of cervix wassubmitted, please contact the testing laboratoryfor alternative testing options.For additional information, please refer tohttp://education.Moki [employer]/faq/PKP151j1(This link if provided for information/educational purposes only.)THIS TEST WAS PERFORMED AT:[facility] [place] [phone] ZHOU MD HPV mRNA E6/E7 TNP [facility] HPV 16 RNA TNP [facility] HPV 18/45 RNA TNP [facility] 07/27/2023 2:46 PM EST 07/28/2023 11:40 AM EST Kimberlee Khoury CNM LAB CYTOLOGY ORDERABLES F inal Result [facility] [address] [place] [phone] * Pap Smear (07/27/2023 2:46 PM EST) Swab Cervix uteri structure / Unknown 07/27/2023 2:46 PM EST 07/28/2023 11:40 AM EST Narrative [facility] - 08/10/2023 10:36 AM EST ----- ------- Name: Td Loya ?Age/Sex: 37/F ? : 1985 Unit#: [id number] ?? Attend Dr: KIMBERLEE KHOURY CNM ?Re07/27/23 ?Status: DEP REF ? Location: HO.HHCLNP ? Disch: ? ----- ------- SPEC : [id number] ? RECD: 07/28/23 ? STATUS: ??SOUT ? REQ NUM: [id number] ? LAM: 07/27/23 ? SUBM DR: KIMBERLEE KHOURY CNM ? ENTERED: ??07/28/23123 ?SP TYPE: Pap Smr ?OTHR : ? ORDERED: ??Pap Smear ? Interpretation ?? Satisfactory for evaluation. ?? Negative for intraepithelial lesion or malignancy. ?HPV mRNA E6/E7: ?NOT DETECTED ? This assay detects E6/E7 viral messenger RNA (mRNA) from 14 high-risk HPV types (16, 18, ?? 31, 33, 35, 39, 45, 51, 52, 56, 58, 59, 66, 68) ?? HPV testing performed by [facility], [place], [place]. ??See reference laboratory ?? portion of the EMR for entire report. ?Clinical Information LMP: Unknown date Previous PAP test: Unknown date/findings Other history: hx LEEP, NIL/neg 2021 ? Material Received ?? ThinPrep-Cervical ----- ------- Signed (signature on file) DAVID Manning (ASCP) 08/10/23 1036 ? ----- ------- ? END OF REPORT ? us Kimberlee Khoury [facility] CYTOLOGY ORDERABLES F inal Result [facility] [address] [place] [phone] * Hepatitis C Antibody with Reflex to HCV, RNA, Quantitative, Real-Time PCR (06/30/2023 11:07 AM EST) Hepatitis C Antibody Nonreactive Nonreactive [facility] Comment:Antibodies to HCV no t detected; does not exclude early acuteHCV infection. Blood Venous blood specimen / Unknown 06/30/2023 11:07 AM EST 06/30/2023 2:12 PM EST Clara Cristina MD LAB BLOOD ORDERABLES Final Resul t Performing Organization Address City/[facility]/ZIP Co de Phone Number [facility] [address] [place] [phone] * (ABNORMAL) Lipid Panel, Standard (08/12/2022 9:17 AM EST) Cholesterol, Total 126 <200 mg/dL [facility] HDL Cholesterol 64 > OR = 50 mg/dL [facility] Triglycerides 176(H) <150 mg/dL [facility] LDL Cholesterol 37 mg/dL (calc) [facility] Comment: Reference range: <100 Desirable range <100 mg/dL for primary prevention; ?? <70 mg/dL for patients with CHD or diabetic patients with > or = 2 CHD risk factors. LDL-C is now calculated using the Christina calculation, which is a validated novel method providing better accuracy than the Friedewald equation in the estimation of LDL-C. Jose KATZ et al. MYCHAL. 2013;310(19): 9194-9022 (http://education.[employer]faq/ABG676) Chol/HDLC Ratio 2.0 <5.0 (calc) [facility] Non-HDL Cholesterol 62 <130 mg/dL (calc) [facility] Comment: For patients with diabetes plus 1 major ASCVD risk factor, treating to a non-HDL-C goal of <100 mg/dL (LDL-C of <70 mg/dL) is considered a therapeutic option. Blood Venous blood specimen / Unknown 08/12/2022 9:17 AM EST 08/12/2022 9:18 AM EST Narrative [facility] - 08/13/2022 2:56 PM EST FASTING:YES FASTING: YES Arpita Edmonds MD LAB BLOOD ORDERABLES Final Re sult [facility] [address], [place] [phone] [facility] [address] [facility], ([address]) [place] [phone] from Last 3 Months or Most Recently Relevant to Health Maintenance Insurance [place] [facility] MEDICAID STAND ADULT Care Teams Hub Cutter Apprentice Relationship Specialty Start Date End Date Arpita Edmonds MD [address] [place] [phone] PCP - General Family Medicine 01/28/18
--- OUTSIDE RECORDS SUMMARY | 2024-08-03 11:24 | XMS_ITS | Encounter Summary ---
Author Organization [employer] Address [address] [facility] 7t [place] [address] Care Team Providers Care Document Improvement Specialist Name Role Phone Arpita Edmonds MD Primary Care Provider [phone] Reason for Visit * Reason Onset Date Comments Results 08/01/2024 Encounter Details Date Type Department Care Team ([facility] st Contact Info) Description 08/01/2024 Telephone [facility] MEDICINE [address] [place], [place] [phone] Janice Mota [facility] [address] [place] [address] Results Social History Tobacco Use Types Packs/Day Years [...] Telephone Encounter - Lisa Belcher RN - 08/01/2024 2:30 PM EST TC placed to pt to advise of Janice Mota's message below regarding current HcG levels. Pt informed that the levels are trending in the right direction and to have repeat labs done in 2-3 days time. Pt advised that if she experiences any pelvic pain or bleeding to be seen in the ED. Pt will await a call from [facility] for an appt but will call back the office if nothing is heard in a week. ----- Message from Janice Mota sent at 08/01/2024 2:21 PM EST ----- Please let Sustephanieily know her hormone (hcg) has risen appropriately. This is good news! We can repeat in 2 days as precaution. It is too early to see much of anything on ultrasound but if shehas pelvic pain or bleeding, she should go to [facility]. I referred her to [facility] for further care. Let us know if not contacted about appointment in the next week. Thanks! documented in this encounter Plan of Treatment Upcoming Encounters Date Type Department Care Team ([facility] st Contact Info) Description 08/03/2024 3:45 PM EST Telemedicine [facility] MED & PEDS 505 [place] [address] Arpita Edmonds MD 505 [place] [address] documented as of this encounter Visit Diagnoses Not on filedocumented in this encounter Additional Health Concerns Assessment Noted Time PHQ-9 Depression Total Score: 2 06/03/20 22 10:05 AM EST documented as of this encounter Care Teams Document Improvement Specialist Relationship Specialty Start Date End Date Arpita Edmonds MD 505 [place] [address] PCP - General Family Medicine 01/28/18 documented as of this encounter
--- OUTSIDE RECORDS SUMMARY | 2024-08-03 11:24 | XMS_ITS | Encounter Summary ---
Author Organization [employer] Address [address] [facility] [address] 7t [place] [address] Care Team Providers Care Highway Worker Name Role Phone Arpita Edmonds MD Primary Care Provider [phone] Encounter Details Date Type Department Care Team ([facility] st Contact Info) Description 10/12/2023 Orders Only [facility]C MED & PEDS [address] [place] [address] Brandee Bhakta FNP 230 [place] [address] Social History Tobacco Use Types Packs/Day Years [...] Upcoming Encounters Date Type Department Care Team ([facility] st Contact Info) Description 08/03/2024 3:45 PM EST Telemedicine [facility] MED & PEDS 505 [place] [address] Arpita Edmonds MD 505 [place] [address] documented as of this encounter Visit Diagnoses Not on filedocumented in this encounter Additional Health Concerns Assessment Noted Time PHQ-9 Depression Total Score: 2 06/03/20 22 10:05 AM EST documented as of this encounter Care Teams Highway Worker Relationship Specialty Start Date End Date Arpita Edmonds MD 505 [place] [address] PCP - General Family Medicine 01/28/18 documented as of this encounter
--- OUTSIDE RECORDS SUMMARY | 2024-08-03 11:24 | XMS_ITS | Encounter Summary ---
Author Organization [employer] Address 75 [facility] 7 [place] [address] Care Team Providers Care Production Line Technician Name Role Phone Arpita Edmonds MD Primary Care Provider [phone] Reason for Visit * Reason Onset Date Comments Med Refill 10/12/2023 Encounter Details Date Type Department Care Team ([facility] st Contact Info) Description 10/12/2023 Telephone [facility] MEDICINE 230 [place] [address] Arpita Edmonds MD [address] [place], [place] [phone] Med Refill Social History Tobacco Use Types [...] pt x3- no answer, LVM on # [id number]- all other listed numbers not in service. Please send a letter for pt to call [facility] Nurses. Thank you Second call attempted to Patient at [phone], number is not in service. Call to [facility], [place] is still not picked up. Pharmacist reports the numbers she has on fileare [phone] and [phone]. Calls attempted to number provided. A voicemail requestng call back leftat [phone] and [phone] is not in service. Brandee Bhakta, TOOTH INSPECTOR [facility] Nurses Please call and let [...] return to care. All other tests [facility], including trich, pamela, CT, NG have come back negative. Thanks! * Telephone Encounter - Cindy Toribio LPN - 10/12/2023 1:26 PM EDT The check writer salesperson contacted Nurse Cmm Operator Kaykay to inquire about the feasibility of the request. It was confirmed that medication can't be sent to [place] under the [employer] insurance. Subsequently, thewriter informed the patient of this update. The patient mentioned being currently in [place] and will wait for the medication until their return. * Telephone Encounter - Mahi Hand - 10/12/2023 11:57 AM EDT Tc from pt requesting the resend of medication to [id number] - [place], [place] - [address] AT [facility] due to currently traveling. documented in this encounter Plan of Treatment Upcoming Encounters Date Type Department Care Team (Late st Contact Info) Description 08/03/2024 3:45 PM EST Telemedicine [facility] MED & PEDS 505 [place] [address] Arpita Edmonds MD [address] [place] [address] documented as of this encounter Visit Diagnoses Not on filedocumented in this encounter Additional Health Concerns Assessment Noted Time PHQ-9 Depression Total Score: 2 06/03/20 22 10:05 AM EST documented as of this encounter Care Teams Production Line Technician Relationship Specialty Start Date End Date Arpita Edmonds MD [address] [place] [address] PCP - General Family Medicine 01/28/18 documented as of this encounter
--- OUTSIDE RECORDS SUMMARY | 2024-08-03 11:24 | XMS_ITS | Encounter Summary ---
Author Organization [employer] Address [address] [facility] 7t [place] [address] Care Team Providers Care It Quality Assurance Analyst Name Role Phone Arpita Edmonds MD Primary Care Provider [phone] Encounter Details Date Type Department Care Team ([facility] st Contact Info) Description 10/05/2023 Orders Only [facility] CHC MED & PEDS 505 [place] [address] Oz Ballesteros MD 505 [place] [address] Influenza-like symptoms Social History Tobacco Use Types [...] [facility] MED & PEDS 505 [place] [address] Arpita Edmonds MD 505 [place] [address] documented as of this encounter Visit Diagnoses Diagnosis Influenza-like symptoms Other general symptoms documented in this encounter Additional Health Concerns Assessment Noted Time PHQ-9 Depression Total Score: 2 06/03/20 22 10:05 AM EST documented as of this encounter Care Teams It Quality Assurance Analyst Relationship Specialty Start Date End Date Arpita Edmonds MD 505 [place] [address] PCP - General Family Medicine 01/28/18 documented as of this encounter
--- OUTSIDE RECORDS SUMMARY | 2024-08-03 11:24 | XMS_ITS | Encounter Summary ---
Author Organization [employer] Address [address] [place] [address] 7 [place] [address] Care Team Providers Care Dredge Engineer Name Role Phone Arpita Edmonds MD Primary Care Provider [phone] Reason for Visit * Reason Onset Date Comments Med Refill 03/05/2024 Encounter Details Date Type Department Care Team ([facility] st Contact Info) Description 03/05/2024 Refill [facility] CHC MED & PEDS 505 [place], [place] [phone] Arpita Edmonds MD 505 [place] [address] Social History Tobacco Use Types Packs/Day Years [...] to provider not having a license in [place] * Telephone Encounter - Julius Reza - 03/06/2024 9:02 AM EDT Tc from pt requesting script for clonazepam to please be re faxed, states pharmacy has no received script, states will attempt to call pharmacy again. documented in this encounter Plan of Treatment Upcoming Encounters Date Type Department Care Team (Late st Contact Info) Description 08/03/2024 3:45 PM EST Telemedicine [facility] CH[facility] MED & PEDS 505 [place] [address] Arpita Edmonds MD 505 [place] [address] documented as of this encounter Visit Diagnoses Not on filedocumented in this encounter Additional Health Concerns Assessment Noted Time PHQ-9 Depression Total Score: 2 06/03/20 22 10:05 AM EST documented as of this encounter Care Teams Dredge Engineer Relationship Specialty Start Date End Date Arpita Edmonds MD 505 [place] [address] PCP - General Family Medicine 01/28/18 documented as of this encounter
--- OUTSIDE RECORDS SUMMARY | 2024-08-03 11:24 | XMS_ITS | Encounter Summary ---
Author Organization [employer] Address 75 [facility] 7t [place] [address] Care Team Providers Care School Year Nanny Name Role Phone Arpita Edmonds MD Primary Care Provider [phone] Encounter Details Date Type Department Care Team ([facility] Contact Info) Description 07/19/2024 Telephone [facility] CHC MED & PEDS 505 [place], [place] [phone] Arpita Edmonds MD 505 [place] [address] Social History Tobacco Use Types Packs/Day Years [...] RN - 07/21/2024 10:28 AM EST See Dctio message. * Telephone Encounter - Viviana Gross - 07/19/2024 2:45 PM EST Tc from pt requesting a call back regarding My Chart message. Has further questions. documented in this encounter Plan of Treatment Upcoming Encounters Date Type Department Care Team ([facility] st Contact Info) Description 08/03/2024 3:45 PM EST Telemedicine [facility] MED & PEDS 505 [place] [address] Arpita Edmonds MD 505 [place] [address] documented as of this encounter Visit Diagnoses Not on filedocumented in this encounter Additional Health Concerns Assessment Noted Time PHQ-9 Depression Total Score: 2 06/03/20 22 10:05 AM EST documented as of this encounter Care Teams School Year Nanny Relationship Specialty Start Date End Date Arpita Edmonds MD [address] [place] [address] PCP - General Family Medicine 01/28/18 documented as of this encounter
--- OUTSIDE RECORDS SUMMARY | 2024-08-03 11:24 | XMS_ITS | Encounter Summary ---
Author Organization [employer] Address [address] [facility] 7 [place] [address] Care Team Providers Care Manager Of Information Name Role Phone Arpita Edmonds MD Primary Care Provider [phone] Reason for Visit * Reason Onset Date Comments Identitiy Theft . 02/08/2024 Encounter Details Date Type Department Care Team ([facility] st Contact Info) Description 02/08/2024 Telephone [facility] MEDICINE 230 [place] [address] Arpita Edmonds MD [address] [facility] [address] [place], [place] [phone] Identitiy Theft . Social History Tobacco Use [...] 11:28 AM EDT TC this morning from [phone] identifying herself as patient awaiting for triage call since theday prior. caller advised number to return call is [phone] due to having issues with number onfile. [...] Upcoming Encounters Date Type Department Care Team ([facility] st Contact Info) Description 08/03/2024 3:45 PM EST Telemedicine [facility] MED & PEDS 505 [place], [place] [phone] Arpita Edmonds MD [address] [place], [place] [phone] documented as of this encounter Visit Diagnoses Not on filedocumented in this encounter Additional Health Concerns Assessment Noted Time PHQ-9 Depression Total Score: 2 06/03/20 22 10:05 AM EST documented as of this encounter Care Teams Manager Of Information Relationship Specialty Start Date End Date Arpita Edmonds MD [address] [place] [address] PCP - General Family Medicine 01/28/18 documented as of this encounter
--- OUTSIDE RECORDS SUMMARY | 2024-08-03 11:24 | XMS_ITS | Encounter Summary ---
Author Organization [employer] Address [address] [facility] [address] 7t [place] [address] Care Team Providers Care Creative Producer Name Role Phone Arpita Edmonds MD Primary Care Provider [phone] Encounter Details Date Type Department Care Team ([facility] st Contact Info) Description 08/01/2024 Orders Only [facility] MEDICINE 230 [place], [place] [phone] Janice Mota CN [address] [place], [place] [phone] Less than 8 weeks gestation of (Primary [...] Info) Description 08/03/2024 3:45 PM EST Telemedicine [facility] MED & PEDS 505 [place] [address] Arpita Edmonds MD 505 [place] [address] Scheduled Orders Name Type Priority Associated Diagnoses Orde r Schedule hCG, Total, Quantitative Lab Routine Less than 8 weeks gestation of Expected: 08/03/2024 (Approximate), Expires: 08/01/2025 documented as of this encounter Visit Diagnoses Diagnosis Less than 8 weeks gestation of - Primary documented in this encounter Additional Health Concerns Assessment Noted Time PHQ-9 Depression Total Score: 2 06/03/20 22 10:05 AM EST documented as of this encounter Care Teams Creative Producer Relationship Specialty Start Date End Date Arpita [place]s MD 505 [place] [address] PCP - General Family Medicine 01/28/18 documented as of this encounter
--- OUTSIDE RECORDS SUMMARY | 2024-08-03 11:24 | XMS_ITS | Encounter Summary ---
Author Organization [employer] Address [address] [facility] [address] 7t [place] [address] Care Team Providers Care Rolls Baker Name Role Phone Arpita Edmonds MD Primary Care Provider [phone] Encounter Details Date Type Department Care Team (Late st Contact Info) Description 08/01/2024 2:15 PM EST Office Visit [facility] OPTOMETRY [address] [place] [address] Alfa, Yelena, OD [address] [place] [address] Hypermetropia, bilateral (Primary Dx) Social History Tobacco Use Types [...] as of this encounter Progress Notes * Yelena Grimm OD - 08/01/2024 2:15 PM EST MH glasses were dispensed. documented in this encounter Plan of Treatment Upcoming Encounters Date Type Department Care Team (Late st Contact Info) Description 08/03/2024 3:45 PM EST Telemedicine [facility] MED & PEDS 505 [place] [address] Arpita Edmonds MD 505 [place] [address] documented as of this encounter Visit Diagnoses Diagnosis Hypermetropia, bilateral- Primary documented in this encounter Additional Health Concerns Assessment Noted Time PHQ-9 Depression Total Score: 2 06/03/20 22 10:05 AM EST documented as of this encounter Care Teams Rolls Baker Relationship Specialty Start Date End Date Arpita Edmonds MD 505 [place] [address] PCP - General Family Medicine 01/28/18 documented as of this encounter
--- OUTSIDE RECORDS SUMMARY | 2024-08-03 11:24 | XMS_ITS | Encounter Summary ---
Author Organization [employer] Address [address] [place] [address] 7 [place] [address] Care Team Providers Care Eight Arm Operator Name Role Phone Arpita Edmonds MD Primary Care Provider [phone] Encounter Details Date Type Department Care Team (Latest Contact Info) Description 09/02/2021 Abstract [facility] CONVERSIONS Dental, Provider, DDS Social History Tobacco [...] Info) Description 08/03/2024 3:45 PM EST Telemedicine [facility] CHC MED & PEDS 505 [place] [address] Arpita Edmonds MD 505 [place] [address] documented as of this encounter Visit Diagnoses Not on filedocumented in this encounter Care Teams Eight Arm Operator Relationship Specialty Start Date End Date Arpita Edmonds MD 505 [place] [address] PCP - General Family Medicine 01/28/18 documented as of this encounter
--- OUTSIDE RECORDS SUMMARY | 2024-08-03 11:24 | XMS_ITS | Encounter Summary ---
Author Organization [employer] Address [address] [facility] [address] 7t [place] [address] Care Team Providers Care Freight Booker Name Role Phone Arpita Edmonds MD Primary Care Provider [phone] Encounter Details Date Type Department Care Team ([facility] st Contact Info) Description 08/06/2022 Orders Only [facility] CHC MED & PEDS [address] [place] [address] Nj Ospina MD 230 [place] [address] Social History Tobacco Use Types Packs/Day Years [...] Info) Description 08/03/2024 3:45 PM EST Telemedicine [facility] CHC MED & PEDS 505 [place] [address] Arpita Edmonds MD [address] [place] [address] documented as of this encounter Visit Diagnoses Not on filedocumented in this encounter Additional Health Concerns Assessment Noted Time PHQ-9 Depression Total Score: 2 06/03/20 22 10:05 AM EST documented as of this encounter Care Teams Freight Booker Relationship Specialty Start Date End Date Arpita Edmonds MD [address] [place] [address] PCP - General Family Medicine 01/28/18 documented as of this encounter
--- OUTSIDE RECORDS SUMMARY | 2024-08-03 11:24 | XMS_ITS | Encounter Summary ---
Author Organization [employer] Address [address] [facility] 7 [place] [address] Care Team Providers Care Brick Molder Hand Name Role Phone Arpita Edmonds MD Primary Care Provider [phone] Reason for Visit * Reason Onset Date Comments Medication Question 08/02/2024 Encounter Details Date Type Department Care Team ([facility] Contact Info) Description 08/02/2024 Telephone [facility] MEDICINE 230 [place] [address] Arpita Edmonds MD 505 [place], [place] [phone] Medication Question Social History Tobacco Use Types [...] encounter Miscellaneous Notes * Telephone Encounter - Beverly Clark RN - 08/03/2024 10:52 AM EST [place] [id number] in regards to message below. Pt states that she received a script for medications while she was in [place] for 2 months. Pt states that she was given this script by the OBGYN in [place]. Has appt with new OB on 08/09/24. Advised pt to call OB office in which they advised her to call [facility]. Pt scheduled for telephone visit with PCP at 3:45 pm to discuss meds and next steps. Pt agrees to plan. * Telephone Encounter - Lexa Ochoa - 08/02/2024 3:14 PM EST Tc from pt wanting to know if she can take some medication that she was prescribed in [place] and wanted to speak to her doctor in regards to this medication. Pt is currently . Pt Contact: (Cypriot) documented in this encounter Plan of Treatment Upcoming Encounters Date Type Department Care Team ([facility] Contact Info) Description 08/03/2024 3:45 PM EST Telemedicine [facility] CHC MED & PEDS 505 [place] [address] Arpita Edmonds MD 505 [place] [address] documented as of this encounter Visit Diagnoses Not on filedocumented in this encounter Additional Health Concerns Assessment Noted Time PHQ-9 Depression Total Score: 2 06/03/20 22 10:05 AM EST documented as of this encounter Care Teams Brick Molder Hand Relationship Specialty Start Date End Date Arpita Edmonds MD 505 [place] [address] PCP - General Family Medicine 01/28/18 documented as of this encounter
--- OUTSIDE RECORDS SUMMARY | 2024-08-03 11:24 | XMS_ITS | Encounter Summary ---
Author Organization [employer] Address [address] [place] [address] 7t [place] [address] Care Team Providers Care Cassandra Architect Name Role Phone Arpita Edmonds MD Primary Care Provider [phone] Encounter Details Date Type Department Care Team ([facility] st Contact Info) Description 05/16/[address] [facility] CHC MED & PEDS [address] [place] [address] Oz Ballesteros MD 505 [place] [address] Candidiasis of female genitalia (Primary Dx) Social [...] [facility] 505 [place] [address] Arpita Edmonds MD 505 [place] [address] documented as of this encounter Visit Diagnoses Diagnosis Candidiasis of female genitalia- Primary Candidiasis of vulva and vagina documented in this encounter Additional Health Concerns Assessment Noted Time PHQ-9 Depression Total Score: 2 06/03/20 22 10:05 AM EST documented as of this encounter Care Teams Cassandra Architect Relationship Specialty Start Date End Date Arpita Edmonds MD 505 [place] [address] PCP - General Family Medicine 01/28/18 documented as of this encounter
--- OUTSIDE RECORDS SUMMARY | 2024-08-03 11:24 | XMS_ITS | Encounter Summary ---
Author Organization [employer] Address [address] [facility] [address] 7t [place] [address] Care Team Providers Care Topper Press Operator Automatic Name Role Phone Arpita Edmonds MD Primary Care Provider [phone] Encounter Details Date Type Department Care Team [...] Description 08/03/2024 3:45 PM EST Telemedicine [facility] MED & PEDS 505 [place] [address] Arpita Edmonds MD 505 [place] [address] documented as of this encounter Visit Diagnoses Not on filedocumented in this encounter Additional Health Concerns Assessment Noted Time PHQ-9 Depression Total Score: 2 06/03/20 22 10:05 AM EST documented as of this encounter Care Teams Topper Press Operator Automatic Relationship Specialty Start Date End Date Arpita Edmonds MD 505 [place] [address] PCP - General Family Medicine 01/28/18 documented as of this encounter
--- OUTSIDE RECORDS SUMMARY | 2024-08-03 11:24 | XMS_ITS | Encounter Summary ---
Author Organization [employer] Address [address] [facility] 7t [place] [address] Care Team Providers Care Ground Crew Supervisor Name Role Phone Arpita Edmonds MD Primary Care Provider [phone] Reason for Visit * Reason Onset Date Comments Record Request 07/31/2024 Encounter Details Date Type Department Care Team ([facility] Contact Info) Description 07/31/2024 Telephone [facility] MEDICINE 230 [place], [place] [phone] Ольга Fagan RN [address] [place] [address] Record Request Social History Tobacco Use Types [...] done. ED summary not yet available on [employer]. Scanned labs in under media. Per pt discharge instructions, pt was referred to Dick Orellana and advised to call to schedule. Telephone call placed to Dick Orellana who reported that pt has not called to schedule yet and they stated she has no [facility] specialist appts upcoming meaning she is also not scheduled with reproductive endo. Td has an appt with me tomorrow morning. It looks like she was seen at [facility] for abdominalpain, early yesterday. Please get results of any hcg testing and pelvic ultrasounds if done. Are you able to see if she has followup with reproductive endocrinology or OB there? documented in this encounter Plan of Treatment Upcoming Encounters Date Type Department Care Team (Late st Contact Info) Description 08/03/2024 3:45 PM EST Telemedicine [facility] CHC MED & PEDS 505 [place] [address] Arpita Edmonds MD 505 [place] [address] documented as of this encounter Visit Diagnoses Not on filedocumented in this encounter Additional Health Concerns Assessment Noted Time PHQ-9 Depression Total Score: 2 06/03/20 22 10:05 AM EST documented as of this encounter Care Teams Ground Crew Supervisor Relationship Specialty Start Date End Date Arpita [place]monds MD 505 [place] [address] PCP - General Family Medicine 01/28/18 documented as of this encounter
--- OUTSIDE RECORDS SUMMARY | 2024-08-03 11:24 | XMS_ITS | Encounter Summary ---
Author Organization [employer] Address [address] [place] [address] 7 [place] [address] Care Team Providers Care Metal Sprayer Machined Parts Name Role Phone Arpita Edmonds MD Primary Care Provider Reason for Visit * Reason Onset Date Comments Appointment Request 07/24/2024 Encounter Details Date Type Department Care Team ([facility] Contact Info) Description 07/24/2024 Telephone [facility] MED & PEDS [address] [place], [place] [phone] Arpita Edmonds MD [address] [place], [place] [phone] Appointment Request Social History Tobacco Use Types [...] call regarding prior message. Contact pt at [phone] * Telephone Encounter - Lisa Belcher RN - 07/25/2024 2:22 PM EST TC placed to pt and LVM to call back the office * Telephone Encounter - Viviana Gross - 07/24/2024 12:46 PM EST Tc from pt requesting to book a follow up appt. [employer] tried getting more information but was unable to understand pt request. Tired offer the next available f/u appt but pt wants a sooner appt. Please call pt to clarify. documented in this encounter Plan of Treatment Upcoming Encounters Date Type Department Care Team ([facility] st Contact Info) Description 08/03/2024 3:45 PM EST Telemedicine [facility] MED & PEDS [address] [place] [address] Arpita Edmonds MD [address] [place] [address] documented as of this encounter Visit Diagnoses Not on filedocumented in this encounter Additional Health Concerns Assessment Noted Time PHQ-9 Depression Total Score: 2 06/03/20 22 10:05 AM EST documented as of this encounter Care Teams Metal Sprayer Machined Parts Relationship Specialty Start Date End Date Arpita Edmonds MD [address] [place] [address] PCP - General Family Medicine 01/28/18 documented as of this encounter
--- OUTSIDE RECORDS SUMMARY | 2024-08-03 11:24 | XMS_ITS | Encounter Summary ---
Author Organization [employer] Address [address] [place] [address] 7 [place] [address] Care Team Providers Care Telecommunications Consultant Name Role Phone Arpita Edmonds MD Primary Care Provider [phone] Reason for Visit * Reason Comments Care Coordination Outreach Encounter Details Date Type Department Care Team (Latest Contact Info) Description 08/01/2024 Patient Outreach [facility] MED & PEDS [address] [place] [address] Arpita Edmonds MD [address] [place] [address] Care Coordination (Outreach) Social History Tobacco Use Types Packs/Day Years [...] as of this encounter Progress Notes * Belinda Toribio - 08/01/2024 1:54 PM EST CHW Belinda Toribio, placed outbound call to patient introducing herself from [facility], in regards to offering services. Patient's name and was confirmed. Patient agrees to participate in program. Appt. for initial assessment scheduled for 08/11/24 @ 10:00 AM. CHW reinforced direct contact information or CM for any additional questions or concerns and extended clinic hours on Mondays and Wednesdays, and Walk-In Urgent Care Located in [facility] of [facility]. Patient provided with after-hours line for [facility], , which offer night time triage service and option to transfer to fire prevention captain provider if needed. Patient verbalizes understanding, and able to repeat back to flex o writer operator. documented in this encounter Plan of Treatment Upcoming Encounters Date Type Department Care Team ([facility] st Contact Info) Description 08/03/2024 3:45 PM EST Telemedicine [facility] MED & PEDS [address] [place] [address] Arpita Edmonds MD [address] [place] [address] documented as of this encounter Visit Diagnoses Not on filedocumented in this encounter Additional Health Concerns Assessment Noted Time PHQ-9 Depression Total Score: 2 06/03/20 22 10:05 AM EST documented as of this encounter Care Teams Telecommunications Consultant Relationship Specialty Start Date End Date Arpita Edmonds MD [address] [place] [address] PCP - General Family Medicine 01/28/18 documented as of this encounter
--- OUTSIDE RECORDS SUMMARY | 2024-08-03 11:24 | XMS_ITS | Encounter Summary ---
Author Organization [employer] Address [address] [facility] 7t [place] [address] Care Team Providers Care Coach Builder Name Role Phone Arpita Edmonds MD Primary Care Provider [phone] Reason for Visit * Reason Onset Date Comments Medication Question 11/10/2023 Encounter Details Date Type Department Care Team ([facility] Contact Info) Description 11/10/2023 Telephone [facility] MEDICINE [address] [place] [address] Arpita Edmonds MD [address] [place], [place] [phone] Medication Question Social History Tobacco Use Types [...] like the script to be sent to [facility]/pharmacy #[id number] - [place] [address] documented in this encounter Plan of Treatment Upcoming Encounters Date Type Department Care Team ([facility] st Contact Info) Description 08/03/2024 3:45 PM EST Telemedicine [facility] MED & PEDS [address] [place] [address] Arpita Edmonds MD 505 [facility] [place] [address] documented as of this encounter Visit Diagnoses Not on filedocumented in this encounter Additional Health Concerns Assessment Noted Time PHQ-9 Depression Total Score: 2 06/03/20 10:05 AM EST documented as of this encounter Care Teams Coach Builder Relationship Specialty Start Date End Date Arpita Edmonds MD [address] [facility] [address] PCP - General Family Medicine 01/28/18 documented as of this encounter
--- OUTSIDE RECORDS SUMMARY | 2024-08-03 11:24 | XMS_ITS | Encounter Summary ---
Author Organization [employer] Address [address] [facility] 7t [place] [address] Care Team Providers Care Corporate Webmaster Name Role Phone Arpita Edmonds MD Primary Care Provider [phone] Encounter Details Date Type Department Care Team ([facility] st Contact Info) Description 07/04/2024 1:45 PM EST Office Visit [facility] OPTOMETRY [address] [place], [place] [phone] TarkaMaricarmen, OD [address] [place] [address] Optic papillitis of both eyes (Primary Dx) [...] g 0 ergocalciferol (Vitamin D-2) 1.25 MG (10723 UT) capsule Take 1 capsule by mouth [...] 2 sprays each nostril bid prn rhinorrhea, lao 15 mL 0 loratadine (Claritin) 10 MG tablet Take 1 tablet by mouth if needed each day. petrolatum hydrophilic-aloe vera (Aloe [place]) ointment Apply topically if needed in the [...] PRN Maricarmen Smiley, OD 07/04/2024, 3:53 PM Leadership Development Instructor Source: __ None __ Bilingual Staff __ Qualified Staff Associate Professor Of Management __ Telephone Leadership Development Instructor; ID# __ Leadership Development Instructor brought by patient (family member, friend, OPERATOR ENGINEER, etc) __ In person underwriting sales representative __ Ipad Leadership Development Instructor; ID#: Language Spoken During Exam: Gambian documented in this encounter Plan of Treatment Upcoming Encounters Date Type Department Care Team (Late st Contact Info) Description 08/03/2024 3:45 PM EST Telemedicine [facility] MED & PEDS [address] [place] [address] Arpita Edmonds MD [address] [place] [address] documented as of this encounter Procedures Procedure [...] documented as of this encounter Care Teams Corporate Webmaster Relationship Specialty Start Date End Date Arpita Edmonds MD [address] [place] [address] PCP - General Family Medicine 01/28/18 documented as of this encounter
[2024-08-03 14:32] LABS: HCG Quantitative 913 mIU/mL
== END 2024-08-03 10:42 | disposition home or self-care (01) ==
LOC: HO.CHCLDS 10:41
PROVIDERS: Visit Provider Advanced Practice Midwife
DX: Z3A.01 Less than 8 weeks gestation of pregnancy (principal)
CPT/HCPCS: 36415; 84702

== ENCOUNTER 2024-08-08 11:51 | Outpatient (REF) | payer MEDICAID, SELFPAY ==
--- OUTSIDE RECORDS SUMMARY | 2024-08-08 13:01 | XMS_ITS | Encounter Summary ---
Author Organization [employer] Address [address] [place] [address] 7t [place] [address] Care Team Providers Care County Adviser Name Role Phone Arpita Edmonds MD Primary Care Provider [phone] Reason for Referral * Imaging (Routine) - Closed Specialty Diagnoses / Procedures Referred By Paul luna Referred To Contact Radiology Diagnoses Optic papillitis of both eyes Procedures MRI BRAIN AND ORBITS W WO CONTRAST Dorian Smiley, OD [address] [place] [address] Phone: tel: fax: [address] Phone: tel: fax: Referral ID Status Reason Start Date Expiration Date Visits Re quested Visits Authorized [id number] Closed 06/19/2024 06/19/2025 1 1 Encounter Details Date Type Department Care Team ([facility] st Contact Info) Description 06/19/2024 11:15 AM EST Office Visit [facility] OPTOMETRY [address] [place] [address] Dorian Smiley, OD [address] [place] [address] Other disorders of optic nerve, not elsewhere classified, bilateral (Primary Dx); Hypermetropia, bilateral; Corneal scar, right eye Social History Tobacco Use Types Packs/Day Years [...] as of this encounter Progress Notes * Dorian Smiley, OD - 06/19/2024 11:15 AM EST Eye Care Progress Note Patient ID: Td Mayer is a 38 y.o. female. HPI Patient reports blurry vision both eyes (OU) at distance without glasses. Patient is happy with vision through current specs. Patient reports headaches, used to be more frequent, about once weekly, but patient notes improvement since starting HTN meds. Now headaches resolve with glasses wear. Patient denies pulsatile tinitis or orthostatic hypotension [place]: 2 years ago, pt was told she had some condition in her eyes that required further testing. Patient was unable to go to follow up and was dismissed from the practice Last edited by Dorian Smiley OD on 06/19/2024 12:03 PM. Current Outpatient Medications Medication Sig Dispense Refill acetaminophen (Tylenol) 500 MG tablet Take 2 [...] mouth 2 times daily. 20 tablet 0 Diclofenac Sodium 1 % gel To apply to the affected area 3 times a day 100 g 0 ergocalciferol (Vitamin D-2) 1.25 MG (99394 UT) capsule Take 1 capsule by mouth [...] HOURS NEEDED FOR ANXIETY 30 capsule 3 ipratropium (Atrovent) 0.06 % nasal spray 2 sprays each nostril bid prn rhinorrhea, estonian 15 mL 0 loratadine (Claritin) 10 MG tablet Take 1 tablet by mouth if needed each day. naproxen (Naprosyn) 500 MG tablet TAKE 1 TABLET BY MOUTH TWICE DAILY prn pain 60 tablet 1 petrolatum hydrophilic-aloe vera (Aloe [place]) ointment Apply topically if needed in the [...] No current facility-administered medications for this visit. History reviewed. No pertinent past medical history. Past Surgical History: Procedure Laterality Date BELT ABDOMINOPLASTY BREAST SURGERY augmentation HERNIA REPAIR TUBAL LIGATION No family history on file. Tobacco Use: Medium Risk (06/19/2024) Tobacco Smoking Tobacco Use: Former Smokeless Tobacco Use: Never Passive Exposure: Never Allergies Allergen Reactions Sulfa Antibiotics Palpitations ROS Positive for: Eyes Negative for: Constitutional, Gastrointestinal, Neurological, Skin, Genitourinary, Musculoskeletal,HENT, Endocrine, Cardiovascular, Respiratory, Psychiatric, Allergic/Imm, Heme/Lymph Last edited by Dorian Smiley, JULIO on 06/19/2024 11:13 AM. Base Eye Exam Visual Acuity (Snellen - Linear) Right Left Dist cc 20/20-1 20/20 Pupils Pupils APD Right PERRL None Left PERRL None Visual Hood Left Right Full Full Extraocular Movement Right [...] 0.05 0.05 C/D Ratio Horizontal 0.05 0.05 Macula Flat, few hard drusen Flat, few hard drusen Vessels AV 2/3, normal course and caliber AV 2/3, normal course and caliber Periphery No holes/tears/detachments 360 No holes/tears/detachments 360 Refraction Wearing Rx Sphere Cylinder [place] Right +0.50 -1.25 068 Left +0.25 Sphere Age: 1 years Type: Manifest Refraction Sphere Cylinder [place] Dist [place] Right +0.50 -1.25 068 20/20 Left +0.25 Sphere 20/20 Final Rx Sphere Cylinder [place] Right +0.50 -1.25 068 Left +0.25 Sphere Type: Expiration Date: 06/19/2026 Assessment and Plan Diagnoses and all orders for this visit: Optic papillitis of both eyes - Elevated optic nerve with indistinct margins both eyes (OU) - Patient symptomatic for headaches, although she reports that headaches have reduced in frequency lately. Patient denies pulsatile tinnitus or orthostatic hypotension - Need to rule out intracranial hypertension - Recommended urgent MRI of brain and orbits with and without contrast. Patient expressed understanding and will proceed to [facility] - Baseline visual field (VF) required within next 2 weeks 2. Hypermetropia both eyes (OU) - Dispensed updated spec Rx 3. Corneal scar right eye (OD) - Patient reports h/o color contact lens (CL) over wear that resulted in her almost losing her vision, likely h/o bacterial ulcer RTC 2 weeks for visual field (VF) testing or sooner PRN Dorian Smiley, JULIO 06/19/2024, 12:06 PM documented in this encounter Miscellaneous Notes * Addendum Note - Dorian Smiley, OD - 06/19/2024 11:15 AM ESTAddended by: DORIAN SMILEY on: 06/19/2024 01:45 PM Modules accepted: Orders * Addendum Note - Dorian Smiley, OD - 06/19/2024 11:15 AM ESTAddended by: DORIAN SMILEY on: 06/19/2024 02:14 PM Modules accepted: Orders documented in this encounter Plan of Treatment Scheduled Orders Name Type Priority Associated Diagnoses Orde r Schedule MRI BRAIN AND ORBITS W WO CONTRAST Imaging Routine Other disorders of optic nerve, not elsewhere classified, bilateral Expected: 06/19/2024, Expires: 06/19/2025 documented as of this encounter Procedures Procedure Name Priority Date/Time Associated Diagnosis Comments OCT, OPTIC NERVE - OU - BOTH EYES Routine 06/19/2024 1:35 PM EST Other disorders of optic nerve, not elsewhere classified, bilateral documented in this encounter Results * OCT, Optic Nerve - OU - Both Eyes (06/19/2024 1:35 PM EST) Narrative Dorian Smiley, OD - 06/19/2024 1:35 PM EST OCT [...] Obtain MRI and LP if indicated. us Dorian Smiley OD OPHTH TOMOGRAPHY Final Result documented in this encounter Visit Diagnoses Diagnosis Other disorders of optic nerve, not elsewhere classified, bilateral- Primary Hypermetropia, bilateral Corneal scar, right eye Unspecified corneal opacity documented in this encounter Additional Health Concerns Assessment Noted Time PHQ-9 Depression Total Score: 2 06/03/20 22 10:05 AM EST documented as of this encounter Care Teams County Adviser Relationship Specialty Start Date End Date Arpita Edmonds MD [address] [place] [address] PCP - General Family Medicine 01/28/18 documented as of this encounter
--- OUTSIDE RECORDS SUMMARY | 2024-08-08 13:02 | XMS_ITS | Clinical Summary ---
Author Organization [employer] Address [address] [place] [address] [address] [place] [address] Care Team Providers Care Wellness Consultant Name Role Phone Arpita Edmonds MD Primary Care Provider [phone] Allergies Active Allergy Reactions Criticality Noted Date Comments Sulfa Antibiotics Palpitations High 05/25/2017 Medications acetaminophen (Tylenol) 500 MG tablet Take 2 tablets by mouth in the morning and 2 tablets at noon and 2 tablets in the evening and 2 tablets before bedtime. 12/12/19 22 Active ergocalciferol (Vitamin D-2) 1.25 MG (16247 UT) capsule Take 1 capsule by mouth [...] 24 Active petrolatum hydrophilic-tony e vera (Aloe [place]) ointmentIndicat ions:Skin rash Apply topically if needed [...] 2 sprays each nostril bid prn rhinorrhea, sudanese 15 mL 05/09/20 24 Active Ventolin HFA [...] 2 TIMES EVERY DAY 60 tablet 2 11/10/192024 Discontinued(T herapy completed) Vit-Fe Fumarate-FA ( Vitamin) 27-0.8 MG tablet Take 1 tab orally daily 30 tablet 11 11/10/192024 Discontinued(R eorder (will not trigger notification to Pharmacy)) ferrous gluconate (Fergon) 324 (37.5 Fe) MG tabletIndicatio ns:Other fatigue TAKE ONE TABLET DAILY WITH BREAKFAST 90 tablet 1 03/30/202024 Discontinued(T herapy completed) dextromethorpha n-guaiFENesin (Tussin DM) 10-100 MG/5ML liquidIndicatio [...] Active Problems Problem Noted Date Diagnosed Date Empty sella syndrome 08/03/2024 Acute frontal sinusitis 05/09/2024 Assessment & Plan [...] Encounters Date Type Department Care Team Description 08/04/2024 Telephone [facility] MEDICINE [address] [place] [address] Ольга Fagan, RN Results 08/03/2024 3:45 PM EST Telemedicine [facility] MED & PEDS [address] [place], [place] [phone] Arpita Edmonds MD Less than 8 weeks gestation of (Primary Dx); Empty sella syndrome (CMS/HCC) 08/03/2024 Travel 08/02/2024 Telephone [facility] MEDICINE [address] [place] [phone] Arpita Edmonds MD Medication Question 08/01/2024 2:15 PM EST Office Visit [facility] OPTOMETRY [address] [place] [address] Alfa, Yelena, OD Hypermetropia, bilateral (Primary Dx) 08/01/2024 11:15 AM EST Office Visit [facility] MEDICINE [address] [place] [address] Kimberlee Khoury CNM Less than 8 weeks gestation of (Primary Dx) 08/01/[address] [address] Kimberlee Khoury CNM Results 08/01/2024 Orders Only [facility] MEDICINE [address] [place] [phone] Kimberlee Khoury CNM Less than 8 weeks gestation of (Primary Dx) 08/01/2024 Patient Outreach [facility] MED & PEDS [address] [place] [address] Arpita Edmonds MD Care Coordination (Outreach) 08/01/2024 Travel 07/31/[address] [address] Ольга Fagan, RN Record Request 07/25/2024 Travel 07/24/2024 Telephone [facility] MED & PEDS [address] [place] [address] Arpita Edmonds MD Appointment Request 07/19/2024 Telephone [facility] MED & PEDS [address] [place] [address] Arpita Edmonds MD 07/04/2024 1:45 PM EST Office Visit [facility] OPTOMETRY [address] [place] [address] Tarka, Maricarmen, OD Other disorders of optic nerve, not elsewhere classified, bilateral (Primary Dx) 07/04/2024 Travel 06/30/2024 2:20 PM EST Office Visit [facility] MED & PEDS [address] [place] [address] Oz Ballesteros MD Viral URI (Primary Dx) 06/30/2024 Travel 06/30/2024 Telephone [facility] MEDICINE [address] [place] [phone] Arpita Edmonds MD Nurse Triage 06/28/2024 10:40 AM EST Office Visit [facility] MED & PEDS [address] [place] [address] Justine Martínez MD Cervical paraspinal muscle spasm (Primary Dx); 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/28/2024 Travel 06/27/2024 Telephone [facility] MED & PEDS [address] [place] [address] Arpita Edmonds MD Nurse Triage 06/26/2024 Telephone [facility] MED & PEDS [address] [place] [address] Nj Ospina MD 06/26/2024 Refill [facility] MED & PEDS [address] [place] [address] Arpita Edmonds MD 06/26/2024 Orders Only [facility] WALK-IN CENTER [address] [place] [address] Nj Ospina MD Abnormal finding on MRI of brain (Primary Dx) 06/20/2024 Orders Only [facility] MED & PEDS [address] [place] [address] Arpita Edmonds MD Empty sella turcica ([facility]/HCC) (Primary Dx); Papilledema 06/20/2024 Telephone [facility] OPTOMETRY [address] [place] [address] Maricarmen Smiley, OD 06/19/2024 11:15 AM EST Office Visit [facility] OPTOMETRY [address] [place] [address] Maricarmen Smiley, OD Other disorders of optic nerve, not elsewhere classified, bilateral (Primary Dx); Hypermetropia, bilateral; Corneal scar, right eye 06/19/2024 Orders Only GENERIC EXTERNAL DATA DEPARTMENT Provider, Generic External Data 06/19/[address] [address] Arpita Edmonds MD Referral 06/19/2024 Travel 06/09/2024 Travel 05/16/2024 Telephone [facility] MED & PEDS [address] [place] [address] Lisa Belcher, RN Results 05/16/2024 Telephone [facility] MED & PEDS [address] [place] [address] Maggy Thompson, ROBINSON Results 05/16/2024 Orders Only [facility] MED & PEDS [address] [place] [address] Oz Ballesteros MD Candidiasis of female genitalia (Primary Dx) 05/16/2024 Refill [facility] MED & PEDS [address] [place] [address] Arpita Edmonds MD Influenza-like symptoms 05/15/2024 6:20 PM EST Office Visit [facility] WALK[facility]IN CENTER [address] [place] [phone] Oz Ballesteros MD Infertility associated with anovulation (Primary Dx); Acute vaginitis 05/15/2024 Travel 05/15/[address] [address] Kimberlee Khoury CNM 05/09/2024 11:20 AM EST [facility] [address] [address] Kate Ware MD Acute frontal sinusitis, recurrence not specified (Primary Dx); Respiratory infection 05/09/[address] [address] Arpita Edmonds MD Nurse Triage 05/08/2024 Refill [facility] MED & PEDS [address] [place] [address] Arpita Edmonds MD from Last 3 Months [...] 06/28/2024 10:45 AM EST Plan of Treatment Health Maintenance Due Date Last Done Comments [...] Associated Diagnosis Comments HCG, TOTAL, QN Routine 08/03/2024 10:45 AM EST Less than 8 weeks gestation of HCG, TOTAL, QN Routine 08/01/2024 11:19 AM EST Less than 8 weeks gestation of CBC WITH AUTO DIFFERENTIAL Routine 08/01/2024 11:19 AM EST Other fatigue CHLAMYDIA/N. GONORRHOEAE RNA, TMA, UROGENITAL Routine 08/01/2024 11:19 AM EST Acute vaginitis AUTOMATED VISUAL FIELD, EXTENDED - OU - BOTH EYES Routine 07/04/2024 3:50 PM EST Other disorders of optic nerve, not elsewhere classified, bilateral MR ORBIT FACE NECK W AND WO CONTRAST Routine 06/19/2024 6:33 PM EST MR BRAIN W AND WO CONTRAST Routine 06/19/2024 6:22 PM EST BASIC METABOLIC PANEL Routine 06/19/2024 3:18 PM EST CBC WITH AUTO DIFFERENTIAL Routine 06/19/2024 3:18 PM EST OCT, OPTIC NERVE - OU - BOTH EYES Routine 06/19/2024 1:35 PM EST Other disorders of optic nerve, not elsewhere classified, bilateral BACTERIAL VAGINOSIS PANEL Routine 05/15/2024 6:30 PM [...] Recently Relevant to Health Maintenance Results * hCG, Total, Quantitative (08/03/2024 10:45 AM EST) Only the most recent of2 resultswithin the time period is included. HCG Quantitative 913 mIU/mL [facility] Comment:Weeks post LMP Appro ximate hCG(Last Menstrual Period) Range (mIU/ml)3 - 4 weeks 9 - 1304 - 5 weeks 75 - 2,6005 - 6 weeks 850 - 20,8006 - 7 weeks 4000 - 100,2007 - 12 weeks 11,500 - 289,45293 - 16 weeks 18,300 - 137,68180 - 29 weeks (2nd trimester) 1,400 - 53,56066 - 41 weeks (3rd trimester) 940 - 60,000The Zambrano B- hCG assay is used for the early detection ofpregnancy; it cannot be used to diagnose any conditionunrelated to . If a B-hCG level is not supportedby the clinical evidence, results should be confirmed by analternative method (qualitative urine hCG, for example). Blood Venous blood specimen / Unknown 08/03/2024 10:45 AM EST 08/03/2024 2:05 PM EST us Kimberlee Khoury [facility] LAB BLOOD ORDERABLES Leah lucero Result [facility] [address] [place] [phone] * (ABNORMAL) CBC auto differential (08/01/2024 11:19 AM EST) Only the most recent of2 resultswithin the time period is included. White Blood Count 7.4 4.8 - 10.8 X10*3/uL [facility] Red Blood Count 4.00(L) 4.20 - 5.50 X10*6/uL [facility] Hemoglobin 12.0 12.0 - 16.0 g/dl [facility] Hematocrit 37.2 37.0 - 47.0 % [facility] Mean Corpuscular Volume 93.0 80.0 - 98.0 fL [facility] Mean Corpuscular Hemoglobin 30.0 27.0 - 33.0 pg [facility] Mean Corpuscular HGB Conc 32.3 31.0 - 35.0 g/dl [facility] Red Cell Distribution Width 14.0 11.0 - 16.0 % [facility] Platelet Count 245 160 - 400 X10*3/uL [facility] Mean Platelet Volume 12.2 9.4 - 12.3 fL [facility] Neutrophils Percent Auto 60.9 45 - 73 % [facility] Imm Gran Pct Auto 0.3 0.0 - 0.4 % [facility] Lymphocytes Percent Auto 26.4 20 - 40 % [facility] Monocytes Percent Auto 10.4 2 - 11 % [facility] Eosinophils Percent Auto 1.5 0 - 4 % [facility] Basophils Percent Auto 0.5 0 - 2 % [facility] NRBC Pct Auto 0.0 0.0 - 0.2 /100WBC [facility] Neutrophils Absolute Auto 4.5 2.0 - 8.3 x10*3/uL [facility] Imm Gran Abs Auto 0.02 0.00 - 0.03 X10*3/uL [facility] Lymphocytes Absolute Auto 2.0 1.2 - 4.9 X10*3/uL [facility] Monocytes Absolute Auto 0.8 0.1 - 1.2 X10*3/uL [facility] Eosinophils Absolute Auto 0.1 0.0 - 0.4 X10*3/uL [facility] Basophils Absolute Auto 0.0 0.0 - 0.2 X10*3/uL [facility] NRBC Abs Auto 0.000 0.0 - 0.012 X10*3/uL [facility] Blood Venous blood specimen / Unknown 08/01/2024 11:19 AM EST 08/01/2024 1:12 PM EST us Oz Ballesteros MD LAB BLOOD ORDERABLES Final Result [facility] [address] [place] [address] [phone] * Chlamydia/N. Gonorrhoeae RNA, TMA, Urogenitial (08/01/2024 11:19 AM EST) Only the most recent of2 resultswithin the time period is included. CT PCR NOT DETECTED Not Detect. [facility] Comment:A not detected test result [...] psychologicalconsequences. NG PCR NOT DETECTED Not Detect. [facility] Comment:A not detected test result [...] AM EST 08/01/2024 1:33 PM EST Narrative [facility] - 08/01/2024 3:08 PM EST Urine us Oz Ballesteros MD LAB MICROBIOLOGY - GENERAL ORDERABLES Final Result [facility] [address] [place] [address] [phone] * Automated Visual Field, Extended - OU [...] EST Narrative 06/19/2024 6:35 PM EST ? [facility] ?[address] ?[place] [address] ? Magnetic Resonance Report ? Signed with Addenda ? Patient: Brown Mayer,Sujeily ?MR#: ?? [id number] ? : 1985 ?Acct:[id number] ? Age/Sex: 38 / F ?ADM Date: 12/30/24 ? Loc: HO.ED ? Attending Dr: ? Ordering Physician: David Watson ?? Date of Service: 06/19/24 ?? Procedure(s): MR orbits face neck wo/w con ?? Accession Number(s): [id number] ? cc: Arpita Edmonds MD; David Watson [...] DD/ 1833 ? TD/TT: 06/19/24 1833 ? Filament Shaper: ? Procedure Note Petrona, Jerome - 06/19/[address] [address] Magnetic Resonance Report Signed with Addenda Patient: Td LoyaMR#: [id number] : 1985Acct:[id number] Age/Sex: 38 / FADM Date: 06/19/24 Loc: HO.ED Attending Dr: Ordering Physician: David Watson Date of Service: 06/19/24 Procedure(s): MR orbits face neck wo/w con Accession Number(s): [id number] cc: Arpita Edmonds MD; David Watson ADDENDUM [...] in OV> 06/19/241833 DD/ 32 TD/TT: 06/19/241832 Filament Shaper: [facility] External Provider IMG MRI PROCEDURES Edited Result - Final * Mr Brain w/ and w/o Contrast (06/19/2024 6:22 PM EST) Anatomical Region Laterality Modality Brain Magnetic Resonan ce 06/19/2024 6:22 PM EST Narrative 06/19/2024 6:25 PM EST ? [facility] ?[address] ?[place] [address] ? Magnetic Resonance Report ? Signed with Addenda ? Patient: Brown Mayer,Sujeily ?MR#: ?? [id number] ? : 1985 ?Acct:[id number] ? Age/Sex: 38 / F ?ADM Date: 06/19/24 ? Loc: HO.ED ? Attending Dr: ? Ordering Physician: David Watson ?? Date of Service: 06/19/24 ?? Procedure(s): MR head/brain wo/w con ?? Accession Number(s): [id number] ? cc: Arpita Edmonds MD; David Watson [...] MD in OV> ?06/19/24 1824 ? DD/ 1822 ? TD/TT: 06/19/24 1822 ? Filament Shaper: ? Procedure Note Donotuseinterpreter, Image - 06/26/[address] [address] Magnetic Resonance Report Signed with Cristal Patient: Td LoyaMR#: [id number] : 1985Acct:[id number] Age/Sex: 38 / FADM Date: 06/19/24 Loc: HO.ED Attending Dr: Ordering Physician: David Watson Date of Service: 06/19/24 Procedure(s): MR head/brain wo/w con Accession Number(s): [id number] cc: Arpita Edmonds MD; David Watson ADDENDUM [...] in OV> 06/19/241823 DD/ 21 TD/TT: 06/19/241821 Filament Shaper: [facility] External Provider IMG MRI PROCEDURES Edited Result - Final * (ABNORMAL) Basic Metabolic Panel (06/19/2024 3:18 PM EST) Sodium 140 135 - 145 mmol/L [facility] Potassium 3.8 3.3 - 5.1 mmol/L [facility] Chloride 107 96 - 108 mmol/L [facility] Carbon Dioxide 27 22 - 29 mmol/L [facility] Anion Gap 10(L) 12 - 20 [facility] Urea Nitrogen (BUN) 10 9 - 16 mg/dL [facility] Creatinine, Serum 0.66 0.5 - 1.4 mg/dL [facility] Creatinine Clr Calc Pharmacy 132.9 [facility] Comment:Provided height and weight: 170.18 cm,91.6 kg.eGFR (calculated from the MDRD study equation) and eCrCl(calculated from the Cockcroft-Gault equation) are based ondifferent parameters and may not yield comparable results.If eCrCl result is absurd, please check patient'sheight/weight. Estimated Glomerular Filt Rate >60 [facility] Comment:Chronic Kidney Disea se: Estimated GFR < 60 mL/min/1.49f5Tysngz Kidney Disease: Estimated GFR < 15 mL/min/1.73m2 Glucose 109 60 - 115 mg/dL [facility] Calcium 8.7 8.4 - 10.2 mg/dL [facility] 06/19/2024 3:18 PM EST 06/19/2024 3:20 PM EST Generic External Data Provider LAB BLOOD ORDERAB LES Final Result [facility] [address] [place] [phone] * OCT, Optic Nerve - OU [...] DETECTION BY PCR NOT DETECTED Not Detect [facility] BACTERIAL VAGINOSIS DETECTION BY PCR NEGATIVE Negative [facility] Comment:The BV organism targ ets [...] GROUP DETECTION BY PCR DETECTED(A) Not Detect [facility] Wen glab krusei PCR NOT DETECTED Not Detect [facility] Swab Vaginal structure / Unknown 05/15/2024 6:30 PM EST 05/16/2024 11:51 AM EST us Oz Ballesteros MD LAB MICROBIOLOGY - GENERAL ORDERABLES Final Result Performing Organization Address [facility] Co de Phone Number [facility] [address] [place] [phone] * Influenza B (ID NOW Rapid Molecular) (05/09/2024 11:19 AM EST) Influenza B Negative Negative, Indeterminate [facility] Swab 05/09/2024 11:1 9 AM EST Kate Ware MD POINT OF CARE TEST ENTER/E DIT ORDERABLES Final Result Performing Organization Address [facility] Co de Phone Number [facility] [address] [place] [phone] * Influenza A (ID NOW Rapid Molecular) (05/09/2024 11:19 AM EST) Pathologist [facility] [place] Influenza A Negative Negative, Indeterminate [facility] Swab 05/09/2024 11:1 9 AM EST Kate Ware MD POINT OF CARE TEST ENTER/E DIT ORDERABLES Final Result Performing Organization Address [facility] Co de Phone Number [facility] [address] [place] [phone] * POCT Rapid COVID Ag (05/09/2024 11:19 AM EST) Rapid COVID Ag Negative [facility] Swab 05/09/2024 11:1 9 AM EST Kate Ware MD POINT OF CARE TEST ENTER/E DIT ORDERABLES Final Result Performing Organization Address [facility] Co de Phone Number [facility] [address] [place] [phone] * HIV-1/2 Antigen and Antibodies, Fourth Generation, with Reflexes (10/05/2023 4:27 PM EDT) HIV AB/AG Nonreactive Nonreactive [facility] Comment:HIV-1 p24 Ag and/or HIV-1/HIV-2 Ab not detected.A test result that is nonreactive does not exclude thepossibility of exposure to or infection with HIV-1 and/orHIV-2. Nonreactive results in this assay for individualswith prior exposure to HIV-1 and/or HIV-2 may be due toantigen and antibody levels that are below the limit ofdetection of this assay.The Keri[employer] HIV Ag/Ab Combo assay result andsupplemental assay results should be interpreted inconjunction with the patient's clinical presentation,history and other laboratory results. If the results areinconsistent with clinical evidence, additional testing issuggested to confirm the result. Blood Venous blood specimen / Unknown 10/05/2023 4:27 PM EDT 10/05/2023 5:27 PM EDT us Oz Ballesteros MD LAB BLOOD ORDERABLES Final Result [facility] [address] [place] [phone] * HPV mRNA E6/E7 w/Reflex to HPV Genotypes 16, 18/45 (07/27/2023 2:46 PM EST) Pathologist [facility] [place] HPV nRNA E6/E7 Not Detected Not Detected [facility] Comment:Methodology: Transcr iption-Mediated AmplificationThis assay detects E6/E7 viral messenger RNA (mRNA) from 14high-risk HPV types (16,18,31,33,35,39,45,51,52,56,58,59,66,68).Cervical sources are required for HPV testing.If a vaginal source from a patient who has had atotal hysterectomy with removal of cervix wassubmitted, please contact the testing laboratoryfor alternative testing options.For additional information, please refer tohttp://education.Carbon[employer]works/faq/XGD554q9(This link if provided for information/educational purposes only.)THIS TEST WAS PERFORMED AT:[facility] [place] [phone] ZHOU MD HPV mRNA E6/E7 TNP [facility] HPV 16 RNA TNP [facility] HPV 18/45 RNA TNP [facility] 07/27/2023 2:46 PM EST 07/28/2023 11:40 AM EST Kimberlee Khoury CNM LAB CYTOLOGY ORDERABLES F inal Result [facility] [address] [place] [address] [phone] * Pap Smear (07/27/2023 2:46 PM EST) Swab Cervix uteri structure / Unknown 07/27/2023 2:46 PM EST 07/28/2023 11:40 AM EST Narrative [facility] - 08/10/2023 10:36 AM EST ----- ------- Name: Td Loya ?Age/Sex: 37/F ? : 1985 Unit#: [id number] ?? Attend Dr: KIMBERLEE KHOURY CNM ?Re07/27/23 ?Status: DEP REF ? Location: HO.HHCLNP ? Disch: ? ----- ------- SPEC : [id number] ? RECD: 07/28/23 ? STATUS: ??SOUT ? REQ NUM: [id number] ? LAM: 07/27/23 ? SUBM DR: KIMBERLEE KHOURY CNHari ? ENTERED: ??07/28/23 ?SP TYPE: Pap Smr ?OTHR : ? ORDERED: ??Pap Smear ? Interpretation ?? Satisfactory for evaluation. ?? Negative for intraepithelial lesion or malignancy. ?HPV mRNA E6/E7: ?NOT DETECTED ? This assay detects E6/E7 viral messenger RNA (mRNA) from 14 high-risk HPV types (16, 18, ?? 31, 33, 35, 39, 45, 51, 52, 56, 58, 59, 66, 68) ?? HPV testing performed by [employer] [place]. ??See reference laboratory ?? portion of the EMR for entire report. ?Clinical Information LMP: Unknown date Previous PAP test: Unknown date/findings Other history: hx LEEP, NIL/neg 2021 ? Material Received ?? ThinPrep-Cervical ----- ------- Signed (signature on file) DAVID Manning (ASCP) 08/10/23 1036 ? ----- ------- ? END OF REPORT ? Kimberlee Khoury [facility] CYTOLOGY ORDERABLES F inal Result [facility] [address] [place] [phone] * Hepatitis C Antibody with Reflex to HCV, RNA, Quantitative, Real-Time PCR (06/30/2023 11:07 AM EST) Hepatitis C Antibody Nonreactive Nonreactive [facility] Comment:Antibodies to HCV no t detected; does not exclude early acuteHCV infection. Blood Venous blood specimen / Unknown 06/30/2023 11:07 AM EST 06/30/2023 2:12 PM EST Clara Cristina MD LAB BLOOD ORDERABLES Final Resul t Performing Organization Address City/[facility]/ZIP Co de Phone Number [facility] [address] [place] [address] [phone] * (ABNORMAL) Lipid Panel, Standard (08/12/2022 9:17 AM EST) Cholesterol, Total 126 <200 mg/dL [facility] [place] [facility] HDL Cholesterol 64 > OR = 50 mg/dL [facility] [place] [facility] Triglycerides 176(H) <150 mg/dL [facility] [place] [facility] LDL Cholesterol 37 mg/dL (calc) [facility] [place] [facility] Comment: Reference range: <100 Desirable range <100 mg/dL for primary prevention; ?? <70 mg/dL for patients with CHD or diabetic patients with > or = 2 CHD risk factors. LDL-C is now calculated using the Christina calculation, which is a validated novel method providing better accuracy than the Friedewald equation in the estimation of LDL-C. Jose SS et al. MYCHAL. 2013;310(19): 2208-1360 (http://education.CareOne/faq/NRT097) Chol/HDLC Ratio 2.0 <5.0 (calc) [facility] [place] [facility] Non-HDL Cholesterol 62 <130 mg/dL (calc) [facility] [place] [facility] Comment: For patients with diabetes plus 1 major ASCVD risk factor, treating to a non-HDL-C goal of <100 mg/dL (LDL-C of <70 mg/dL) is considered a therapeutic option. Blood Venous blood specimen / Unknown 08/12/2022 9:17 AM EST 08/12/2022 9:18 AM EST Narrative [facility] - 08/13/2022 2:56 PM EST FASTING:YES FASTING: YES Arpita Edmonds MD LAB BLOOD ORDERABLES Final Re sult [facility] [address] [facility], [place] [address] [facility] [place] [facility] [address] [facility], ([address]) [place] [phone] from Last 3 Months or Most Recently Relevant to Health Maintenance Insurance [facility] C3 DENTAL-[facility] MEDICAID STAND ADULT Care Teams Wellness Consultant Relationship Specialty Start Date End Date Arpita Edmonds MD [address] [place] [phone] PCP - General Family Medicine 01/28/18
--- OUTSIDE RECORDS SUMMARY | 2024-08-08 13:02 | XMS_ITS | Encounter Summary ---
Author Organization [employer] Address [address] [facility] [address] 7t [place] [address] Care Team Providers Care Bias Machine Operator Name Role Phone Arpita Edmonds MD Primary Care Provider [phone] Encounter Details Date Type Department Care Team ([facility] st Contact Info) Description 02/08/2024 Telephone [facility] MEDICINE [address] [place] [address] Arpita Edmonds MD [address] [place], [place] [phone] Social History Tobacco Use Types Packs/Day Years [...] as of this encounter Plan of Treatment Not on file documented as of this encounter Visit Diagnoses Not on filedocumented in this encounter Additional Health Concerns Assessment Noted Time PHQ-9 Depression Total Score: 2 06/03/20 22 10:05 AM EST documented as of this encounter Care Teams Bias Machine Operator Relationship Specialty Start Date End Date Arpita Edmonds MD [address] [place] [address] PCP - General Family Medicine 01/28/18 documented as of this encounter
--- OUTSIDE RECORDS SUMMARY | 2024-08-08 13:02 | XMS_ITS | Encounter Summary ---
Author Organization [employer] Address [address] [facility] [address] 7t [place] [address] Care Team Providers Care Pelt Inspector Name Role Phone Arpita Edmonds MD Primary Care Provider [phone] Encounter Details Date Type Department Care Team [...] documented as of this encounter Care Teams Pelt Inspector Relationship Specialty Start Date End Date Arpita Edmonds MD [address] [place] [address] PCP - General Family Medicine 01/28/18 documented as of this encounter
--- OUTSIDE RECORDS SUMMARY | 2024-08-08 13:02 | XMS_ITS | Encounter Summary ---
Author Organization [email or web address] Address [address] [facility] [address] 7t [place] [address] Care Team Providers Care Research Methods Instructor Name Role Phone Arpita Edmonds MD Primary Care Provider [phone] Encounter Details Date Type Department Care Team (Late st Contact Info) Description 08/01/2024 2:15 PM EST Office Visit [facility] [address] [place] [address] Alfa, Yelena, OD [address] [place] [address] Hypermetropia, bilateral (Primary Dx) Social History Tobacco [...] documented in this encounter Plan of Treatment Not on file documented as of this encounter Visit Diagnoses Diagnosis Hypermetropia, bilateral- Primary documented in this encounter Additional Health Concerns Assessment Noted Time PHQ-9 Depression Total Score: 2 06/03/20 22 10:05 AM EST documented as of this encounter Care Teams Research Methods Instructor Relationship Specialty Start Date End Date Arpita Edmonds MD [address] [place] [address] PCP - General Family Medicine 01/28/18 documented as of this encounter
--- OUTSIDE RECORDS SUMMARY | 2024-08-08 13:02 | XMS_ITS | Encounter Summary ---
Author Organization [employer] Address [address] [place] [address] 7 [place] [address] Care Team Providers Care Rn Recovery Name Role Phone Arpita Edmonds MD Primary Care Provider [phone] Reason for Visit * Reason Comments Care Coordination Outreach Encounter Details Date Type Department Care Team (Latest Contact Info) Description 08/01/2024 Patient Outreach [facility] MED & PEDS [address] [place] [address] Arpita Edmonds MD 505 [place] [address] Care Coordination (Outreach) Social History Tobacco Use [...] outbound call to patient introducing herself from [facility], in regards to offering services. Patient's name and was confirmed. Patient agrees to participate in program. Appt. for initial assessment scheduled for 08/11/24 @ 10:00 AM. CHW reinforced direct contact information or for any additional questions or concerns and extended clinic hours on Mondays and Wednesdays, and Walk-In Urgent Care Located in [facility] of [facility]. Patient provided with after-hours line for [facility], , which offer night time triage service and option to transfer to general merchandise salesperson provider if needed. Patient verbalizes understanding, and able to repeat back to typewriter repairer. documented in this encounter Plan of Treatment Not on file documented as of this encounter Visit Diagnoses Not on filedocumented in this encounter Additional Health Concerns Assessment Noted Time PHQ-9 Depression Total Score: 2 06/03/20 22 10:05 AM EST documented as of this encounter Care Teams Rn Recovery Relationship Specialty Start Date End Date Arpita Edmonds MD [address] [place] [address] PCP - General Family Medicine 01/28/18 documented as of this encounter
--- OUTSIDE RECORDS SUMMARY | 2024-08-08 13:02 | XMS_ITS | Encounter Summary ---
Author Organization [employer] Address 75 [facility] 7t [place] [address] Care Team Providers Care Drum Filler Name Role Phone Arpita Edmonds MD Primary Care Provider [phone] Reason for Visit * Reason Onset Date Comments Record Request 07/31/2024 Encounter Details Date Type Department Care Team ([facility] Contact Info) Description 07/31/2024 Telephone [facility] MEDICINE [address] [place], [place] [phone] Ольга Fagan RN 230 [place] [address] Record Request Social History Tobacco Use Types [...] done. ED summary not yet available on [employer]. Scanned labs in under media. Per pt discharge instructions, pt was referred to Dick Orellana and advised to call to schedule. Telephone call placed to Dick Orellana who reported that pt has not called to schedule yet and they stated she has no [facility] specialist appts upcoming meaning she is also not scheduled with reproductive endo. Td has an appt with me tomorrow morning. It looks like she was seen at [facility] for abdominalpain, early yesterday. Please get [...] documented as of this encounter Care Teams Drum Filler Relationship Specialty Start Date End Date Arpita Edmonds MD 505 [place] [address] PCP - General Family Medicine 01/28/18 documented as of this encounter
--- OUTSIDE RECORDS SUMMARY | 2024-08-08 13:02 | XMS_ITS | Encounter Summary ---
Author Organization [employer] Address 75 [facility] 7t [place] [address] Care Team Providers Care Hospitalist Medical Director Name Role Phone Arpita Edmonds MD Primary Care Provider [phone] Reason for Visit * Reason Onset Date Comments Results 08/04/2024 Encounter Details Date Type Department Care Team ([facility] Contact Info) Description 08/04/2024 Telephone [facility] MEDICINE 230 [place], [place] [phone] Ольга Fagan RN 230 [place] [address] Results Social History Tobacco Use Types Packs/Day [...] encounter Miscellaneous Notes * Telephone Encounter - Ольга Fagan RN - 08/04/2024 11:33 AM EST T/C placed to pt re below lab results and POC. Informed HCG increasing which is a good sign. Advised to follow up with OB and if having bleeding or cramping, go to ED. Pt verbalized understanding anddenied having any further questions or concerns at this time. * Telephone Encounter - Ольга Fagan RN - 08/04/2024 11:31 AM EST ----- Message from Janice Mota sent at 08/04/2024 11:21 AM EST ----- Please let Sujeily know blood work looks good. Keep OB appt as planned. Seek care at ER if cramping/bleeding. documented in this encounter Plan of Treatment Not on file documented as of this encounter Visit Diagnoses Not on filedocumented in this encounter Additional Health Concerns Assessment Noted Time PHQ-9 Depression Total Score: 2 06/03/20 22 10:05 AM EST documented as of this encounter Care Teams Hospitalist Medical Director Relationship Specialty Start Date End Date Arpita Edmonds MD [address] [place] [address] PCP - General Family Medicine 01/28/18 documented as of this encounter
--- OUTSIDE RECORDS SUMMARY | 2024-08-08 13:02 | XMS_ITS | Encounter Summary ---
Author Organization [employer] Address [address] [facility] 7 [place] [address] Care Team Providers Care All Terrain Vehicle Racer Name Role Phone Arpita Edmonds MD Primary Care Provider [phone] Reason for Visit * Reason Onset Date Comments Medication Question 08/02/2024 Encounter Details Date Type Department Care Team ([facility] Contact Info) Description 08/02/2024 Telephone [facility] MEDICINE 230 [place] [address] Arpita Edmonds MD 505 [place], [place] [phone] Medication Question Social History Tobacco Use Types [...] encounter Miscellaneous Notes * Telephone Encounter - Beevrly Clark RN - 08/03/2024 10:52 AM EST [place] [id number] in regards to message below. Pt states that she received a script for medications while she was in [place] for 2 months. Pt states that she was given this script by the OBGYN in [place]. Has appt with new OB on 08/09/24. [...] some medication that she was prescribed in [place] and wanted to speak to her doctor in regards to this medication. Pt is currently . Pt Contact: (Turkish) documented in this encounter Plan of Treatment Not on file documented as of this encounter Visit Diagnoses Not on filedocumented in this encounter Additional Health Concerns Assessment Noted Time PHQ-9 Depression Total Score: 2 06/03/20 22 10:05 AM EST documented as of this encounter Care Teams All Terrain Vehicle Racer Relationship Specialty Start Date End Date Arpita Edmonds MD 505 [place] [address] PCP - General Family Medicine 01/28/18 documented as of this encounter
--- OUTSIDE RECORDS SUMMARY | 2024-08-08 13:02 | XMS_ITS | Encounter Summary ---
Author Organization [employer] Address 75 [facility] 7t [place] [address] Care Team Providers Care Sand Sifter Name Role Phone Arpita Edmonds MD Primary Care Provider [phone] Reason for Visit * Reason Onset Date Comments Results 08/01/2024 Encounter Details Date Type Department Care Team ([facility] st Contact Info) Description 08/01/2024 Telephone [facility] MEDICINE [address] [place], [place] [phone] Janice Mota [facility] 230 [place] [address] Results Social History Tobacco Use Types Packs/Day [...] ED. Pt will await a call from [facility] for an appt but will call back [...] to E R. I referred her to [facility] for further care. Let us know if not contacted about appointment in the next week. Thanks! documented in this encounter Plan of Treatment Not on file documented as of this encounter Visit Diagnoses Not on filedocumented in this encounter Additional Health Concerns Assessment Noted Time PHQ-9 Depression Total Score: 2 06/03/20 22 10:05 AM EST documented as of this encounter Care Teams Sand Sifter Relationship Specialty Start Date End Date Arpita Edmonds MD [address] [place] [address] PCP - General Family Medicine 01/28/18 documented as of this encounter
--- OUTSIDE RECORDS SUMMARY | 2024-08-08 13:02 | XMS_ITS | Encounter Summary ---
Author Organization [employer] Address [address] [place] [address] 7t [place] [address] Care Team Providers Care House Worker General Name Role Phone Arpita Edmonds MD Primary Care Provider [phone] Encounter Details Date Type Department Care Team ([facility] st Contact Info) Description 05/16/2024 Orders Only [facility] CHC MED & PEDS [address] [place] [address] Oz Ballesteros MD 505 [place] [address] Candidiasis of female genitalia (Primary Dx) Social [...] documented as of this encounter Care Teams House Worker General Relationship Specialty Start Date End Date Arpita Edmonds MD [address] [place] [address] PCP - General Family Medicine 01/28/18 documented as of this encounter
--- OUTSIDE RECORDS SUMMARY | 2024-08-08 13:02 | XMS_ITS | Encounter Summary ---
Author Organization [employer] Address 75 [facility] 7 [place] [address] Care Team Providers Care Center Receptionist Name Role Phone Arpita Edmonds MD Primary Care Provider [phone] Reason for Visit * Reason Onset Date Comments Identitiy Theft . 02/08/2024 Encounter Details Date Type Department Care Team ([facility] st Contact Info) Description 02/08/2024 Telephone [facility] MEDICINE 230 [place] [address] Arpita Edmonds MD [address] [facility] [address] [place], [place] [phone] Identitiy Theft . Social History Tobacco Use [...] 11:28 AM EDT TC this morning from [phone] identifying herself as patient awaiting for triage call since theday prior. caller advised number to return call is [phone] due to having issues with number onfile. [...] documented as of this encounter Care Teams Center Receptionist Relationship Specialty Start Date End Date Arpita Edmonds MD [address] [place] [address] PCP - General Family Medicine 01/28/18 documented as of this encounter
--- OUTSIDE RECORDS SUMMARY | 2024-08-08 13:02 | XMS_ITS | Encounter Summary ---
Author Organization [employer] Address 75 [facility] 7 [place] [address] Care Team Providers Care Enamel Machine Operator Name Role Phone Arpita Edmonds MD Primary Care Provider [phone] Reason for Visit * Reason Onset Date Comments Med Refill 10/12/2023 Encounter Details Date Type Department Care Team ([facility] st Contact Info) Description 10/12/2023 Telephone [facility] MEDICINE 230 [place] [address] Arpita Edmonds MD [address] [place], [place] [phone] Med Refill Social History Tobacco Use Types [...] pt x3- no answer, LVM on # [id number]- all other listed numbers not in service. Please send a letter for pt to call [facility] Nurses. Thank you Second call attempted to Patient at [phone], number is not in service. Call to [facility], [place] is still not picked up. Pharmacist reports the numbers she has on fileare [phone] and [phone]. Calls attempted to number provided. A voicemail requestng call back leftat [phone] and [phone] is not in service. Brandee Bhakta, RESOURCE MANAGER P [facility] Nurses Please call and let [...] LPN - 10/12/2023 1:26 PM EDT The aligner typewriter contacted Nurse Director Of [employer] to inquire about the feasibility of the request. It was confirmed that medication can't be sent to [place] under the [employer] insurance. Subsequently, thewriter informed the patient of this update. The patient mentioned being currently in [place] and will wait for the medication until their return. * Telephone Encounter - Mahi Hand - 10/12/2023 11:57 AM EDT Tc from pt requesting the resend of medication to [id number] - [place], [place] - [address] AT [facility] due to currently traveling. documented in this encounter Plan of Treatment Not on file documented as of this encounter Visit Diagnoses Not on filedocumented in this encounter Additional Health Concerns Assessment Noted Time PHQ-9 Depression Total Score: 2 06/03/20 22 10:05 AM EST documented as of this encounter Care Teams Enamel Machine Operator Relationship Specialty Start Date End Date Arpita Edmonds MD [address] [place] [address] PCP - General Family Medicine 01/28/18 documented as of this encounter
--- OUTSIDE RECORDS SUMMARY | 2024-08-08 13:02 | XMS_ITS | Encounter Summary ---
Author Organization [employer] Address [address] [place] [address] 7t [place] [address] Care Team Providers Care Drum Operator Name Role Phone Arpita Edmonds MD Primary Care Provider [phone] Encounter Details Date Type Department Care Team ([facility] st Contact Info) Description 08/03/2024 3:45 PM EST Telemedicine [facility] CHC MED & PEDS 505 [place], [place] [phone] Arpita Edmonds MD 505 [place] [address] Less than 8 weeks gestation of (Primary Dx); Empty sella syndrome (CMS/HCC) Social History Tobacco Use Types Packs/Day Years [...] the past 12 months, has t he [email or web address], oil or water [employer] threatened to shut off services in your [...] as of this encounter Progress Notes * Arpita Edmonds MD - 08/03/2024 3:45 PM EST Subjective Patient ID: Td Mayer is a 38 y.o. female who presents for follow- up early . Td is a 38-year-old female patient of [facility] seen today via televisit. Patient is very happy because she is about 8 weeks at age 38. She went to [facility] and had a successful fertility treatment. Patient is on vitamins. She is on prednisolone 5 mg daily progesterone 200 mg daily aspirin 100 mg daily and another medication that she apparently has to take for 2 more months. Patient has an appointment at [facility] on August 09 for OB care. She was referred there by pheresis specialist Miryam who saw her 2 days ago. Her H CG levels are increasing well. Patient is worried because she will run out of these medications in 2 weeks. Review of Systems Constitutional: Negative for activity change, chills, fever and unexpected weight change. Respiratory: Negative for cough, shortness of breath and wheezing. Cardiovascular: Negative for chest pain, palpitations and leg swelling. Gastrointestinal: Negative for abdominal pain and blood in stool. Endocrine: Negative for polydipsia and polyuria. Genitourinary: Negative for decreased urine volume, difficulty urinating, dysuria, hematuria and vaginal bleeding. Musculoskeletal: Negative for arthralgias, back pain and gait problem. Skin: Negative for color change and rash. Neurological: Negative for dizziness and headaches. Hematological: Negative for adenopathy. Psychiatric/Behavioral: Negative for dysphoric mood, hallucinations, sleep disturbance and suicidalideas. The patient is not nervous/anxious. Objective Physical Exam Constitutional: General: She is not in acute distress. Neurological: Mental Status: She is alert and oriented to person, place, and time. Mental status is at baseline. Psychiatric: Mood and Affect: Mood normal. Behavior: Behavior normal. Assessment/Plan Diagnoses and all orders for this visit: Less than 8 weeks gestation of Comments: Continue vitamins. Do not miss August 09 appointment at [facility]. Bring all meds prescribed in [facility] as well as any meds currently taking. Patient is not smoking, drinking alcohol, etc. patient aware meds prescribed by OB in [place] will most likely be prescribed again at her visit on August 08 at [facility] if needed. Expresses understanding. Empty sella syndrome (CMS/HCC) Comments: Seeing ophthalmology at [facility]. Was just seen yesterday and will be seeing neurology again on . Advised not to miss. documented in this encounter Plan of Treatment Not on file documented as of this encounter Visit Diagnoses Diagnosis Less than 8 weeks gestation of - Primary Empty sella syndrome (CMS/HCC) Other disorders of the pituitary and other syndromes of diencephalohypophyseal origin documented in this encounter Additional Health Concerns Assessment Noted Time PHQ-9 Depression Total Score: 2 06/03/20 22 10:05 AM EST documented as of this encounter Care Teams Drum Operator Relationship Specialty Start Date End Date Arpita Edmonds MD [address] [place] [address] PCP - General Family Medicine 01/28/18 documented as of this encounter
--- OUTSIDE RECORDS SUMMARY | 2024-08-08 13:02 | XMS_ITS | Encounter Summary ---
Author Organization [employer] Address [address] [facility] 7t [place] [address] Care Team Providers Care Cotton Chopper Name Role Phone Arpita Edmonds MD Primary Care Provider [phone] Encounter Details Date Type Department Care Team [...] documented as of this encounter Care Teams Cotton Chopper Relationship Specialty Start Date End Date Arpita Edmonds MD [address] [place] [address] PCP - General Family Medicine 01/28/18 documented as of this encounter
--- OUTSIDE RECORDS SUMMARY | 2024-08-08 13:02 | XMS_ITS | Encounter Summary ---
Author Organization [employer] Address 75 [facility] 7t [place] [address] Care Team Providers Care Frame Aligner Name Role Phone Arpita Edmonds MD Primary Care Provider [phone] Encounter Details Date Type Department Care Team ([facility] Contact Info) Description 07/19/[address] [facility] CHC MED & PEDS [address] [place], [place] [phone] Arpita Edmonds MD 505 [place] [address] Social History Tobacco Use Types Packs/Day Years [...] RN - 07/21/2024 10:28 AM EST See [employer] message. * Telephone Encounter - Viviana Gross [...] documented as of this encounter Care Teams Frame Aligner Relationship Specialty Start Date End Date Arpita Edmonds MD [address] [place] [address] PCP - General Family Medicine 01/28/18 documented as of this encounter
--- OUTSIDE RECORDS SUMMARY | 2024-08-08 13:02 | XMS_ITS | Encounter Summary ---
Author Organization [employer] Address 75 [facility] 7t [place] [address] Care Team Providers Care Personal Assistant Name Role Phone Arpita Edmonds MD Primary Care Provider [phone] Encounter Details Date Type Department Care Team ([facility] st Contact Info) Description 10/05/2023 Orders Only [facility] CH[facility] MED & PEDS 505 [place] [address] Oz Ballesteros MD 505 [place] [address] Influenza-like symptoms Social History Tobacco Use Types [...] documented as of this encounter Care Teams Personal Assistant Relationship Specialty Start Date End Date Arpita Edmonds MD [address] [place] [address] PCP - General Family Medicine 01/28/18 documented as of this encounter
--- OUTSIDE RECORDS SUMMARY | 2024-08-08 13:02 | XMS_ITS | Encounter Summary ---
Author Organization [id number] Address [address] [facility] 7t [place] [address] Care Team Providers Care Supervisor Agricultural Education Name Role Phone Arpita Edmonds MD Primary Care Provider [phone] Encounter Details Date Type Department Care Team ([facility] st Contact Info) Description 07/04/2024 1:45 PM EST Office Visit [facility] OPTOMETRY [address] [place], [place] [phone] TarkaMaricarmen, OD [address] [place], [place] [phone] Other disorders of optic nerve, not elsewhere classified, bilateral (Primary Dx) Social History Tobacco Use [...] this encounter Progress Notes * Maricarmen Smiley, JULIO - 07/04/2024 1:45 PM EST Eye Care [...] g 0 ergocalciferol (Vitamin D-2) 1.25 MG (26208 UT) capsule Take 1 capsule by mouth [...] 2 sprays each nostril bid prn rhinorrhea, austrian 15 mL 0 loratadine (Claritin) 10 MG tablet Take 1 tablet by mouth if needed each day. petrolatum hydrophilic-aloe vera (Aloe Foster) ointment Apply topically if needed in the [...] PRN Maricarmen Smiley, OD 07/04/2024, 3:53 PM Airline Pilot Flight Instructor Source: __ None __ Bilingual Staff __ Qualified Staff Assistant Case Manager __ Telephone Airline Pilot Flight Instructor; ID# __ Airline Pilot Flight Instructor brought by patient (family member, friend, GENERATOR WORKER, etc) __ In person freelance interpreter/translator __ Ipad Airline Pilot Flight Instructor; ID#: Language Spoken During Exam: Scottish documented in this encounter Plan of Treatment Not on file documented as of this encounter Procedures Procedure Name Priority Date/Time Associated Diagnosis Comments AUTOMATED VISUAL FIELD, EXTENDED - OU - BOTH EYES Routine 07/04/2024 3:50 PM EST Other disorders of optic nerve, not elsewhere classified, bilateral documented in this encounter Results * Automated [...] optic nerve, not elsewhere classified, bilateral- Primary documented in this encounter Additional Health Concerns Assessment Noted Time PHQ-9 Depression Total Score: 2 06/03/20 22 10:05 AM EST documented as of this encounter Care Teams Supervisor Agricultural Education Relationship Specialty Start Date End Date Arpita Edmonds MD [address] [place] [address] PCP - General Family Medicine 01/28/18 documented as of this encounter
--- OUTSIDE RECORDS SUMMARY | 2024-08-08 13:02 | XMS_ITS | Encounter Summary ---
Author Organization [employer] Address [address] [place] [address] 7 [place] [address] Care Team Providers Care Tap Dancer Name Role Phone Arpita Edomnds MD Primary Care Provider [phone] Reason for Visit * Reason Onset Date Comments Med Refill 03/05/2024 Encounter Details Date Type Department Care Team ([facility] st Contact Info) Description 03/05/2024 Refill [facility] MED [facility] PEDS [address] [place], [place] [phone] Arpita Edmonds MD [address] [place] [address] Social History Tobacco Use Types Packs/Day Years [...] to provider not having a license in [place] * Telephone Encounter - Julius Reza - [...] documented as of this encounter Care Teams Tap Dancer Relationship Specialty Start Date End Date Arpita Edmonds MD [address] [place] [address] PCP - General Family Medicine 01/28/18 documented as of this encounter
--- OUTSIDE RECORDS SUMMARY | 2024-08-08 13:02 | XMS_ITS | Encounter Summary ---
Author Organization [employer] Address [address] [place] [address] 7 [place] [address] Care Team Providers Care Leather Scrubber Name Role Phone Arpita Edmonds MD Primary Care Provider [phone] Encounter Details Date Type Department Care Team (Latest Contact Info) Description 09/02/2021 Abstract [facility] CONVERSIONS Dental, Provider, DDS Social History Tobacco [...] on filedocumented in this encounter Care Teams Leather Scrubber Relationship Specialty Start Date End Date Arpita Edmonds MD [address] [place] [address] PCP - General Family Medicine 01/28/18 documented as of this encounter
--- OUTSIDE RECORDS SUMMARY | 2024-08-08 13:02 | XMS_ITS | Encounter Summary ---
Author Organization [employer] Address [address] [facility] [address] 7[address] [place] [address] Care Team Providers Care Safe And Vault Service Mechanic Name Role Phone Arpita Edmonds MD Primary Care Provider [phone] Encounter Details Date Type Department Care Team ([facility] st Contact Info) Description 10/12/2023 Orders Only [facility] MED [facility] PEDS [address] [place] [address] Brandee Bhakta FNP [address] [place] [address] Social History Tobacco Use Types Packs/Day Years [...] documented as of this encounter Care Teams Safe And Vault Service Mechanic Relationship Specialty Start Date End Date Arpita Edmonds MD [address] [place] [address] PCP - General Family Medicine 01/28/18 documented as of this encounter
--- OUTSIDE RECORDS SUMMARY | 2024-08-08 13:02 | XMS_ITS | Encounter Summary ---
Author Organization [employer] Address [address] [place] [address] 7 [place] [address] Care Team Providers Care Equal Opportunity Director Name Role Phone Arpita Edmonds MD Primary Care Provider [phone] Reason for Visit * Reason Onset Date Comments Appointment Request 07/24/2024 Encounter Details Date Type Department Care Team ([facility] Contact Info) Description 07/24/2024 Telephone [facility] MED [facility] PEDS [address] [place], [place] [phone] Arpita Edmonds MD [address] [place], [place] [phone] Appointment Request Social History Tobacco Use Types [...] call regarding prior message. Contact pt at [phone] * Telephone Encounter - Lisa Belcher RN - 07/25/2024 2:22 PM EST TC placed to pt and LVM to call back the office * Telephone Encounter - Viviana Gross - 07/24/2024 12:46 PM EST Tc from pt requesting to book a follow up appt. Software Packaging Engineer tried getting more information but was unable [...] documented as of this encounter Care Teams Equal Opportunity Director Relationship Specialty Start Date End Date Arpita Edmonds MD [address] [place] [phone] PCP - General Family Medicine 01/28/18 documented as of this encounter
--- OUTSIDE RECORDS SUMMARY | 2024-08-08 13:02 | XMS_ITS | Encounter Summary ---
Author Organization [employer] Address [address] [facility] 7t [place] [address] Care Team Providers Care Inside Sales Name Role Phone Arpita Edmonds MD Primary Care Provider [phone] Reason for Visit * Reason Onset Date Comments Medication Question 11/10/2023 Encounter Details Date Type Department Care Team ([facility] Contact Info) Description 11/10/2023 Telephone [facility] MEDICINE [address] [place] [address] Arpita Edmonds MD [address] [place], [place] [phone] Medication Question Social History Tobacco Use Types [...] like the script to be sent to [facility]/pharmacy #[id number] - [place] MATTHE[place] [address] documented in this encounter Plan of Treatment Not on file documented as of this encounter Visit Diagnoses Not on filedocumented in this encounter Additional Health Concerns Assessment Noted Time PHQ-9 Depression Total Score: 2 06/03/20 22 10:05 AM EST documented as of this encounter Care Teams Inside Sales Relationship Specialty Start Date End Date Arpita Edmonds MD [address] [place] [address] [place] [address] PCP - General Family Medicine 01/28/18 documented as of this encounter
--- OUTSIDE RECORDS SUMMARY | 2024-08-08 13:02 | XMS_ITS | Encounter Summary ---
Author Organization [employer] Address [address] [facility] [address] [place] [address] Care Team Providers Care Asparagus Buncher Name Role Phone Arpita Edmonds MD Primary Care Provider Encounter Details Date Type Department Care Team ([facility] st Contact Info) Description 08/01/2024 Orders Only [facility] MEDICINE [address] [place], [place] [phone] Janice Mota CN [address] [place], [place] [phone] Less than 8 weeks gestation of (Primary [...] as of this encounter Miscellaneous Notes * Result Encounter Note - Janice Mota CNM - 08/01/2024 2:21 PM EST Please let Sujeily know blood work looks [...] this encounter Results * hCG, Total, Quantitative (08/03/2024 10:45 AM EST) HCG Quantitative 913 mIU/mL [facility] Comment:Weeks post LMP Appro ximate hCG(Last Menstrual Period) Range (mIU/ml)3 - 4 weeks 9 - 1304 - 5 weeks 75 - 2,6005 - 6 weeks 850 - 20,8006 - 7 weeks 4000 - 100,2007 - 12 weeks 11,500 - 289,52642 - 16 weeks 18,300 - 137,01389 - 29 weeks (2nd trimester) 1,400 - 53,11534 - 41 weeks (3rd trimester) 940 - [...] AM EST 08/03/2024 2:05 PM EST us Janice Mota [facility] LAB BLOOD ORDERABLES Leah lucero Result [facility] [address] [place] [address] [phone] documented in this encounter Visit Diagnoses Diagnosis Less than 8 weeks gestation of - Primary documented in this encounter Additional Health Concerns Assessment Noted Time PHQ-9 Depression Total Score: 2 06/03/20 22 10:05 AM EST documented as of this encounter Care Teams Asparagus Buncher Relationship Specialty Start Date End Date Arpita Edmonds MD [address] [place] [address] PCP - General Family Medicine 01/28/18 documented as of this encounter
--- OUTSIDE RECORDS SUMMARY | 2024-08-08 13:02 | XMS_ITS | Encounter Summary ---
Author Organization [employer] Address [address] [facility] [address] 7[address] [place] [address] Care Team Providers Care Public Health Epidemiologist Name Role Phone Arpita Edmonds MD Primary Care Provider [phone] Encounter Details Date Type Department Care Team ([facility] st Contact Info) Description 08/06/2022 Orders Only [facility] MED & PEDS [address] [place] [address] Nj Ospina MD [address] [place] [address] Social History Tobacco Use Types Packs/Day Years [...] documented as of this encounter Care Teams Public Health Epidemiologist Relationship Specialty Start Date End Date Arpita Edmonds MD [address] [place] [address] PCP - General Family Medicine 01/28/18 documented as of this encounter
--- OUTSIDE RECORDS SUMMARY | 2024-08-08 13:02 | XMS_ITS | Encounter Summary ---
Author Organization [employer] Address [address] [place] [address] 7t [place] [address] Care Team Providers Care Cold Storage Superintendent Name Role Phone Arpita Edmonds MD Primary Care Provider Reason for Referral * Consultation (STAT) - Closed Specialty Diagnoses / Procedures Referred By Paul luna Referred To Contact Obstetrics and Gynecology Diagnoses Less than 8 weeks gestation of Janice Mota CNM [address] [place] [address] Phone: tel: [facility]: [facility] [address] [place] [address] Phone: tel: fax: Referral ID Status Reason Start Date Expiration Date V isits Requested Visits Authorized [id number] Closed Specialty Services Required 08/01/2024 08/01/2025 1 1 Encounter Details Date Type Department Care Team (Late st Contact Info) Description 08/01/2024 11:15 AM EST Office Visit [facility] MEDICINE [address] [place] [phone] Janice Mota CNM [address] [place], [place] [phone] Less than 8 weeks gestation of (Primary [...] a 38 y.o. female who presents for MILLWORK ESTIMATOR visit Here with partner. Recent visit at [facility] for abdominal pain, early . Hcg 88 on 07/30, advised to followup with [facility]. No ultrasound done. LMP 07/01/2024. Had IVF in [facility] 07/19/2024. Feels well other than [...] she has progesterone from fertility specialist in [facility], needs rx. Rx sent in. [...] go to ER. I referred her to [facility] for further care. Let us know if not contacted about appointment in the next week. Thanks! documented in this encounter Plan of Treatment Scheduled Referrals Name Type Priority Associated Diagnoses [...] 11:19 AM EST) HCG Quantitative 329 mIU/mL [facility] Comment:Weeks post LMP Appr oximate hCG(Last Menstrual Period) Range (mIU/ml)3 - 4 weeks 9 - 1304 - 5 weeks 75 - 2,6005 - 6 weeks 850 - 20,8006 - 7 weeks 4000 - 100,2007 - 12 weeks 11,500 - 289,32400 - 16 weeks 18,300 - 137,30342 - 29 weeks (2nd trimester) 1,400 - 53,19134 - 41 weeks (3rd trimester) 940 - [...] 08/01/2024 1:12 PM EST us Janice Mota CNM LAB BLOOD ORDERABLES Leah lucero Result [facility] [address] [place] [address] [phone] documented in this encounter Visit Diagnoses Diagnosis Less than 8 weeks gestation of - Primary documented in this encounter Additional Health Concerns Assessment Noted Time PHQ-9 Depression Total Score: 2 06/03/20 22 10:05 AM EST documented as of this encounter Care Teams Cold Storage Superintendent Relationship Specialty Start Date End Date Arpita Edmonds MD [address] [place] [address] PCP - General Family Medicine 01/28/18 documented as of this encounter
--- OUTSIDE RECORDS SUMMARY | 2024-08-08 13:02 | XMS_ITS | Encounter Summary ---
Author Organization [employer] Address [address] [facility] [place] [address] Care Team Providers Care Envelope Folding Machine Operator Name Role Phone Arpita Edmonds MD Primary Care Provider [phone] Encounter Details Date Type Department Care Team (Latest Contact Info) Description 08/03/2024 Travel Social History Tobacco Use Types Packs/Day [...] documented as of this encounter Care Teams Envelope Folding Machine Operator Relationship Specialty Start Date End Date Arpita Edmonds MD [address] [place] [address] PCP - General Family Medicine 01/28/18 documented as of this encounter
[2024-08-08 13:58] LABS: Erythrocyte Sedimentation Rate 26 MM/HR (0-20)
[2024-08-09 08:44] LABS: Lyme Abs Screen <0.90 index
[2024-08-10 23:44] LABS: Cardiolipin IgG Ab <2.0 GPL-U/mL; Cardiolipin IgM Ab 2.5 MPL-U/mL
[2024-08-12 11:57] LABS: IgA 382 mg/dL (47-310); IgG 1639 mg/dL (600-1640); IgM 119 mg/dL (50-300)
== END 2024-08-08 11:52 | disposition home or self-care (01) ==
LOC: HO.LAB 11:51
PROVIDERS: PCP Pediatrics; Visit Provider Psychiatry & Neurology Neurology
DX: G93.49 Other encephalopathy (principal)
CPT/HCPCS: 36415; 82784; 85652; 86147; 86334; 86617; 86618